=== PATIENT | male | born 1995 | race Caucasian/White ===

== ENCOUNTER 2021-04-17 13:04 | Outpatient (CLI) | payer OTHER | END 2021-04-17 20:10 | disposition home or self-care (01) | LOC: MCT 13:04 | PROVIDERS: ATTEND Internal Medicine | DX: J18.9 Pneumonia, unspecified organism (principal) | CPT/HCPCS: 71250 ==

== ENCOUNTER 2021-10-24 14:18 | Inpatient (IN) | payer OTHER ==
[~2021-10-24] VITALS: Ht 177.8 cm; Wt 106.1 kg
--- NOTE | 2021-10-24 14:10 | NUR ---
PT BROUGHT IN BY [facility]. PT HAS PORTEX [address] TRACH WAS CLEAN UPON ARRIVAL. PLACED ON SETTING PROVIDED BY THE SNF AT [facility] 500, RR12, +5 ,50%. WHEELS LOCKED, AMBU BAG PRESENT AND PLUGGED INTO RED OUTLET. PT SATURATION IN 94%. CLEAR WITH SLIGHT CRACKLES HEARD ON AUSCULTATION. SUCTIONED MODERATE AMOUNT OF THICK YELLOW SPUTUM. SPUTUM WAS COLLECTED AND SENT TO THE LAB. WAITING FOR RESULTS.
[2021-10-24 14:20] VITALS: BP 115/83
[2021-10-24] MEDS ORDERED: MORPHINE SULFATE 4 MG/ML SYR IVP ONE ×2 (14:40→15:45)
[2021-10-24] MEDS ORDERED: ONDANSETRON 4 MG/2 ML VIAL IVP ONE ×2 (14:40→15:45)
--- NOTE | 2021-10-24 14:56 | NUR ---
XRAY AT BEDSIDE
[2021-10-24 15:41] LABS: BASOPHILS # (AUTO) 0.1 K/uL (0.00-0.22); BASOPHILS % (AUTO) 0.6 % (0.0-2.0); EOSINOPHILS # (AUTO) 0.6 K/uL (0-0.4); EOSINOPHILS % (AUTO) 5.8 % (0.0-4.0); HEMATOCRIT 42.1 % (36-52); HEMOGLOBIN 13.7 g/dL (12.0-18.0); LYMPHOCYTES # (AUTO) 1.2 K/uL (2.0-11.5); MEAN CORPUSCULAR HEMOGLOBIN 28 pg (27-31); MEAN CORPUSCULAR HGB CONC 33 g/dL (33-37); MEAN CORPUSCULAR VOLUME 86.3 fL (80-94); MONOCYTES # (AUTO) 0.8 K/uL (0.8-1.0); MONOCYTES % (AUTO) 8.5 % (1.7-9.3); NEUTROPHILS # (AUTO) 6.9 K/uL (1.8-7.7); NEUTROPHILS % (AUTO) 72.1 % (42.2-75.2); PLATELET COUNT (AUTO) 239 K/uL (140-450); RED BLOOD CELL COUNT(AUTO) 4.88 MIL/uL (4.20-6.10); RED CELL DISTRIBUTION WIDTH 15.5 % (11.6-13.7); WHITE BLOOD COUNT (AUTO) 9.5 K/uL (4.8-10.8)
--- NOTE | 2021-10-24 15:57 | NUR ---
RT AT BEDSIDE
[2021-10-24 16:11] LABS: ALBUMIN 3.3 g/dL (3.4-5.0); ANION GAP 9.1 (8-16); CARBON DIOXIDE 31.6 mmol/L (21-32); CREATININE 0.4 mg/dL (0.6-1.3); POTASSIUM 3.7 mmol/L (3.5-5.1); TOTAL BILIRUBIN 0.5 mg/dL (0.0-1.0)
--- NOTE | 2021-10-24 17:08 | NUR ---
PT TAKEN TO CT VIA [facility]
--- NOTE | 2021-10-24 17:26 | NUR ---
PT BACK FROM CT
--- NOTE | 2021-10-24 17:30 | NUR ---
PT TRANSPORTED TO CT AND BACK TO ER WITH NO ADVERSE EVENTS. PT TOLERATED TRANSPORT WELL. VENT PLUGGED INTO RED OUTLET, VENTS ALARMS REMAIN ON AND AUDIBLE. AMBU REMAINS AT BEDSIDE. WILL CONTINUE TO MONITOR PT.
[2021-10-24] MEDS ORDERED: ONDANSETRON 4 MG/2 ML VIAL IVP PRN (17:45)
[2021-10-24] MEDS: DEXT 5% /NACL 0.9% 1,000 ML IV SCH (17:45)
[2021-10-24] MEDS ORDERED: MORPHINE SULFATE 4 MG/ML SYR IVP PRN (17:45)
[2021-10-24] MEDS ORDERED: PIPERACILLIN/TAZOBACTAM 3.375 GM VIAL IV ONE (18:22)
[2021-10-24] MEDS ORDERED: CRUSHER, PILL MC ONE (18:35)
[2021-10-24] MEDS: PIPERACILLIN/TAZOBACTAM 3.375 GM in DEXTROSE 5% 50 ML IV SCH (18:56)
--- NOTE | 2021-10-24 18:59 | NUR ---
The patient's care was reviewed and supervised by [facility] ED, RN.
--- NOTE | 2021-10-24 19:16 | NUR ---
REPORT GIVEN TO MARKEL JUSTICE. TRANSFER OF CARE.
--- NOTE | 2021-10-24 19:22 | NUR ---
pt is awake and alert. asked pt if he was in pain or needed, pt nodded no. added extra pillows on side for support. iv to left thumn patent, fluids running as ordered.. interm. suction for g-tube continued, no residual noted. lung sounds clear. abd appears distended, no bowel sounds asculated. all needs met at this time. bed locked in lowest position. side rails x2 for safety.
[2021-10-24 19:27] VITALS: BP 125/83
--- NOTE | 2021-10-24 19:27 | NUR ---
rt is at bedside.
--- NOTE | 2021-10-24 20:11 | NUR ---
SISTER GURDEEP CONTACT NUMBER [phone]
--- NOTE | 2021-10-24 20:47 | NUR ---
called kenya to [phone] x2s no answer. called charge x2s no answer. charge nurse prem made aware, stated i can move foward with transfering pt. rt called for transfer.
--- NOTE | 2021-10-24 21:00 | NUR ---
rt paged for pt transfer.
--- NOTE | 2021-10-24 21:30 | NUR ---
Patient will be admitted to care of . Admited to TELE . Will go to [id number]. Belongings list completed. Report to MARKEL GARCIA.
--- NOTE | 2021-10-24 21:45 | NUR ---
RECEIVED P[T FROM ER NURSE/PATIRNT ON TRACH TO VENT,IV INTACT,NO DISTRESS NOTED
[2021-10-25] VITALS: BP 113/73
[2021-10-25] MEDS ORDERED: PIPERACILLIN/TAZOBACTAM 3.375 GM VIAL IV ONE ×2 (00:11→06:01)
[2021-10-25] MEDS: PIPERACILLIN/TAZOBACTAM 3.375 GM in DEXTROSE 5% 50 ML IV SCH ×4 (00:17→18:00)
--- NOTE | 2021-10-25 03:00 | NUR ---
PATIENT ASLEEP, B REATHING EVEN AND UNLABORED,NO SOB NOTED
[2021-10-25 04:00] VITALS: BP 122/81
--- NOTE | 2021-10-25 06:00 | NUR ---
CLEANEDE AND REPOSITIONED THE PATIENT, SMALL AMOUNT OF SOFT DARK STOOL NOTED
[2021-10-25] MEDS: DEXT 5% /NACL 0.9% 1,000 ML IV SCH ×4 (06:13→22:28)
--- NOTE | 2021-10-25 07:15 | NUR ---
RECEIVED PATIENT LAYING IN BED ALERT AND ORIENTED X4 PATIENT LUNGS ARE CLEAR AND HE IS ON VENTILATOR. PATIENT BOWEL SOUNDS ARE HYPOACTIVE AND ABDOMEN IS DISTENDED. PATIENT SKIN IAS PALE AND HE IS A QUADRIPLEGIC. S1 AND S2 HEARD UPON AUSCULTATION. PATIENT SHOWS NO SIGNS OF PAIN AT THE MOMENT. PATIENT WITH SUPRAPUBIC CATHETER AND G-TUBE THAT IS HOOKED TO SUCTION. WILL CONTINUE TO MONITOR. BED AT LOWEST POSITION AND LOCKED.
[2021-10-25 08:00] VITALS: BP 148/87
[2021-10-25] MEDS ORDERED: ACETAMINOPHEN 325 MG TAB PO PRN (08:10)
[2021-10-25] MEDS ORDERED: DOCUSATE SODIUM 100 MG GELCAP PO PRN (08:10)
[2021-10-25] MEDS ORDERED: guaiFENesin DM 200/20 MG-10 ML 10 ML UDC PO PRN (08:10)
[2021-10-25] MEDS ORDERED: SODIUM PHOSPHATE 118 ML ENEM RC PRN (08:10)
[2021-10-25] MEDS ORDERED: ZOLPIDEM 5 MG TAB PO PRN (08:10)
[2021-10-25] MEDS ORDERED: SODIUM PHOSPHATE 118 ML ENEM RC ONE (08:10)
[2021-10-25] MEDS ORDERED: HYDROcodone/APAP 7.5/325 MG 1 TAB PO PRN (08:10)
[2021-10-25] MEDS ORDERED: ONDANSETRON 4 MG/2 ML VIAL IM/IVP PRN (08:10)
--- NOTE | 2021-10-25 08:12 | NUR ---
PATIENT HAS BEEN SCREENED AND CATEGORIZED LOW NUTRITION RISK. PATIENT WILL BE SEEN WITHIN 7 DAYS OF ADMISSION. 10/25/21-10/31/[address]
[2021-10-25] MEDS ORDERED: bisacodyL 10 MG SUPP RC PRN (08:15)
[2021-10-25] MEDS ORDERED: bisacodyL 10 MG SUPP RC ONE (08:15)
[2021-10-25] MEDS ORDERED: PANTOPRAZOLE 40 MG TABEC PO SCH (09:00)
[2021-10-25] MEDS ORDERED: SODIUM PHOSPHATE 118 ML ENEM RC SCH (09:30)
[2021-10-25] MEDS: PANTOPRAZOLE 40 MG INJ VIAL IVP SCH (09:47)
[2021-10-25 10:02] LABS: PROTHROMBIN TIME 10.3 secs (10.8-13.4)
[2021-10-25 10:25] LABS: AMYLASE 70 U/L (25-115); FREE T4 (FREE THYROXINE) 2.12 ng/dL (0.76-1.46); LIPASE 86 U/L (73-393); MAGNESIUM 2.2 mg/dL (1.8-2.4); PHOSPHORUS 4.7 mg/dL (2.5-4.9); THYROID STIMULATING HORMONE 8.46 uIU/mL (0.34-3.74)
--- NOTE | 2021-10-25 11:30 | NUR ---
PATIENT IV INFILTRATED MD NOTIFIED AND NEW ORDERS OBTAINED TO SWITCH IV SITE TO OTHER ARM. CAPILLARY REFILL LESS THAN THREE SECONDS.
[2021-10-25 12:00] VITALS: BP 118/75
--- NOTE | 2021-10-25 14:00 | NUR ---
PATIENT DISIMPACTED ABDOMEN IS SOFT. WILL CONTINUE TO MONITOR.
[2021-10-25 16:00] VITALS: BP 113/62
--- NOTE | 2021-10-25 16:00 | NUR ---
NOTIFIED THAT IV INSERTION WAS NOT COMPLETE REQUEST FOR PICC LINE PLACED, PATIENT ON IV ANTIBIOTICS.
--- NOTE | 2021-10-25 16:30 | NUR ---
PATIENT FAMILY AT BEDS SIDE.
--- NOTE | 2021-10-25 17:00 | NUR ---
IV ACCESS WAS OBTAINED MD NOTIFIED AND IV ANTIBIOTIC STARTED,TOO CLOSE TO NEXT SCHEDULE DOSE WILL NOT ADMINISTER 1800 DOSE.
--- NOTE | 2021-10-25 19:30 | NUR ---
RECEIVED PT FROM AM NURSE FOR CONTINUITY OF CARE.PT IS STABLE
[2021-10-25 20:00] VITALS: BP 127/85
--- NOTE | 2021-10-25 21:30 | NUR ---
ALL MEDICATIONS GIVEN.NO SOB NOTED, WILL CONTINUE TO MONITOR
[2021-10-25 22:12] LABS: TRIGLYCERIDES 74 mg/dL (30-150)
[2021-10-25 22:13] LABS: CHOL/HDL RATIO 4.3 (1-4.5); HDL CHOLESTEROL 35 mg/dL (40-60); LDL (CALC) 101 mg/dL (60-100)
[2021-10-26] VITALS: BP 123/78
[2021-10-26] MEDS: PIPERACILLIN/TAZOBACTAM 3.375 GM in DEXTROSE 5% 50 ML IV SCH ×4 (00:31→18:00)
--- NOTE | 2021-10-26 01:00 | NUR ---
PATIENT IS AWKE ,NO SOB NOTED, O2 SAT 94-96%.WILL CONTINUE TO MONITOR
--- NOTE | 2021-10-26 03:30 | NUR ---
NO SOB NOTED,WILL CONTINUE TO MONITOR
[2021-10-26 04:00] VITALS: BP 128/79
[2021-10-26 05:11] LABS: BASOPHILS % (AUTO) 0.2 % (0.0-2.0); EOSINOPHILS # (AUTO) 0.1 K/uL (0-0.4); EOSINOPHILS % (AUTO) 0.7 % (0.0-4.0); HEMATOCRIT 38.3 % (36-52); HEMOGLOBIN 12.8 g/dL (12.0-18.0); LYMPHOCYTES # (AUTO) 0.5 K/uL (2.0-11.5); LYMPHOCYTES % (AUTO) 4.9 % (20.5-51.1); MEAN CORPUSCULAR HEMOGLOBIN 29 pg (27-31); MEAN CORPUSCULAR HGB CONC 34 g/dL (33-37); MEAN CORPUSCULAR VOLUME 85.2 fL (80-94); MONOCYTES # (AUTO) 0.5 K/uL (0.8-1.0); MONOCYTES % (AUTO) 4.7 % (1.7-9.3); NEUTROPHILS # (AUTO) 9.6 K/uL (1.8-7.7); NEUTROPHILS % (AUTO) 89.5 % (42.2-75.2); PLATELET COUNT (AUTO) 230 K/uL (140-450); RED CELL DISTRIBUTION WIDTH 15.4 % (11.6-13.7); WHITE BLOOD COUNT (AUTO) 10.8 K/uL (4.8-10.8)
[2021-10-26 05:23] LABS: ANION GAP 11.5 (8-16); CARBON DIOXIDE 29.6 mmol/L (21-32); CREATININE 0.4 mg/dL (0.6-1.3); POTASSIUM 3.1 mmol/L (3.5-5.1)
[2021-10-26] MEDS: DEXT 5% /NACL 0.9% 1,000 ML IV SCH ×3 (05:35→19:55)
--- NOTE | 2021-10-26 06:00 | NUR ---
PATIENT ASLEEP, RESPIRATION EVEN AND UNLABORED,NO DISTRESS NOTED
[2021-10-26] MEDS: POTASSIUM CHLORIDE 10 MEQ TABER PO PRN (06:52)
--- NOTE | 2021-10-26 07:15 | NUR ---
RECEIVED PT ON ACVC 500, 12, +5, 60%. WHEELS ARE LOCKED, AMBU BAG AT BEDSIDE. PT WAS AWAKE AND IN NO DISTRESS.
--- NOTE | 2021-10-26 07:48 | NUR ---
SPOKE TO DR WORLEY REGARDING PATIENT STATUS. WANTS FOLLOW UP ABDOMINAL X RAY AND BOWEL PROTOCOL. WILL CALL FOR RESULTS.
--- NOTE | 2021-10-26 07:58 | NUR ---
RECEIVED PATIENT, AOXO, NONVERBAL AT BASELINE, SINUS CARMENZA/OCCASIONALLY PACED, TRACH TO VENT WITH UNLABORED BREATHING. G TUBE TO LIS WITH SMALL AMOUNT OF BILIOUS OUTPUT. PATIENT DOES NOT APPEAR TO BE IN DISTRESS/DISCOMFORT. SUPRAPUBIC CATHETER DRAINING CLEAR SEDIMENTED URINE. BOWEL DISTENDED AT THIS TIME. PATIENT IS QUADRIPLEGIC. IV FLUIDS INFUSING TO RIGHT WRIST IV. REPOSITIONED PATIENT. WILL CONTINUE TO MONITOR.
[2021-10-26 08:00] VITALS: BP 139/81
[2021-10-26] MEDS ORDERED: MAGNESIUM CITRATE 300 ML BTL GT SCH (08:30)
[2021-10-26] MEDS: POLYETHYLENE GLYCOL 17 GM/PKT GT SCH ×2 (08:48→21:37)
[2021-10-26] MEDS: PANTOPRAZOLE 40 MG INJ VIAL IVP SCH (08:48)
--- NOTE | 2021-10-26 09:30 | NUR ---
PROVIDED UPDATE TO SISTER GURDEEP.
[2021-10-26 12:00] VITALS: BP 101/67
--- NOTE | 2021-10-26 12:15 | NUR ---
WOUND CARE NOTE: SKIN ASSESSMENT DONE WITH THIS 26 Y/O PT. PT. WITH LOW ROSEANNE SCALE AT HIGH RISK, CONTINUE TO FOLLOW PRESSURE INJURY PREVENTION INTERVENTIONS. PT. ADMITTED WITH MULTIPLE EROSIONS TO TRUNK OF BODY. GT CONNECTED WITH SUCTION OF BROWNISH SECRETION OBSERVED IN THE SUCTION CONTAINER, TOTAL CARE WITH BED BATH AND POSITION WITH OFFLOADING. POC DISCUSSED WITH PRIMARY RN. -POSTERIOR NECK, MOISTURE ASSOCIATED EROSIONS FROM TRACK TIE, 0.5X3CM SUPERFICIAL DEPTH -GT JESUS MANUEL STOMA SKIN RED WITH RASHES, SKIN INTACT -OLD HEALED SACRAL/BUTTOCKS WOUND THIN SCAR TISSUE WITH MOISTURE ASSOCIATED DERMATITIS RED, SUPERFICIAL EROSIONS TO OLD HEALED JESUS MANUEL-WOUND SKIN EXTENDED TO RIGHT AND LEFT ISCHIALS. -#20 FR. SUPRAPUBIC CATH, JESUS MANUEL-OSTOMY SKIN EROSION WITH FULL THICKNESS SKIN LOSS, 2M0S1KG, WOUND BED 100% RED GRANULATION TISSUE WITH SMALL AMOUNT SEROUS DRAINAGE, NO ODOR, JESUS MANUEL-WOUND SKIN MOIST AND INTACT. RECOMMENDATIONS: -CLEANSE POSTERIOR NECK, GT JESUS MANUEL-STOMA SKIN, SACRALCOCCYX/BUTTOCKS/ISCHIALS WITH MILD SOAP AND WATER, PAT DRY, APPLY ZGUARD AND COVER WITH ISLAND DRESSING QD AND PRN IF SOILING. -APPLY FOAM DRESSING TO SACRALCOCCYX Q3 DAYS AND PRN IF SOILING -CLEANSE SUPRA PUBIC CATH JESUS MANUEL-SKIN WOUND WITH NS, PAT DRY PACK WITH OIL EMULSION DRESSING AND COVER WITH DRY DRESSING SECURED WITH TAPE. QD AND PRN IS SOILING. -POSITIONING: TURN AND REPOSITION PATIENT Q 2H OR SOONER USE PILLOWS TO KEEP BONY PROMINENCES FROM DIRECT CONTACT WITH SURFACES USE REPOSITIONING WEDGES TO PROVIDE 30-DEGREE ANGLE FOR SIDE LYING POSITIONS OFFLOADING OR FOAM DRESSING TO ALL TUBING TO PREVENT MEDICAL DEVICES RELATED PRESSURE INJURY -RE-EVALUATING AND MANAGING INCONTINENCE MONITOR SKIN CONDITION DURING POSITION CHANGE DO NOT MASSAGE REDNESS, BONY PROMINENCES FREQUENT JESUS MANUEL-CARE AND PROVIDE BARRIER CREAMS PRN IF SOILING MOISTURE CONTROL BY OFFER BED CAPPS/URINAL /ABSORBENT PAD TO WICK AND HOLD MOISTURE KEEP SKIN DRY AND PROTECT FROM FRICTION -MANAGE FRICTION/SHEAR/MOBILITY KEEP HOB AT THE LOWEST LEVEL OF ELEVATION NO MORE THAN 30 DEGREES UNLESS OTHERWISE CONTRAINDICATED USE LIFT SHEET OR TRANSFER DEVICE TO MOVE PATIENT AND PREVENT LATERAL SHEER. PROTECT HEELS, ELBOWS BONY PROMINENCES WITH SKIN BERRIES OR FOAM DRESSING IF EXPOSED TO FRICTION OFFLOAD BILATERAL HEELS BY PLACING PILLOWS UNDER CALVES AT ALL TIMES, UNLESS OTHERWISE CONTRAINDICATED -PRESSURE REDISTRIBUTION SURFACE THERAPY MANDI ISOFLEX MATTRESS -NUTRITION: PLEASE FOLLOW RD RECOMMENDATIONS AND OFFER NUTRITION SUPPLEMENTS IF ORDERED. PLEASE CONTACT WOUND CARE NURSE FOR ANY QUESTION AND CHANGE OF WOUND CONDITION.
[2021-10-26] MEDS: FOAM DRESSING TP SCH (13:00)
[2021-10-26] MEDS: GAUZE TP SCH (13:00)
[2021-10-26] MEDS: Z-GUARD PASTE TP SCH (13:00)
--- NOTE | 2021-10-26 13:01 | NUR ---
SPOKE TO DR WORLEY WHO WANTS PATIENT TO RESUME TUBE FEEDS AND PUT PATIENT ON BOWEL PREP.
[2021-10-26 14:10] LABS: CANNABINOID, URINE NEGATIVE ng/mL (NEG <=50); OPIATE, URINE POSITIVE ng/mL (NEG <=2000); PHENCYCLIDINE SCREEN,URINE NEGATIVE ng/mL (NEG <=25)
[2021-10-26 14:11] LABS: BARBITURATE, URINE NEGATIVE ng/ml (NEG <=200); BENZODIAZEPINE, URINE NEGATIVE ng/mL (NEG <=200); COCAINE, URINE NEGATIVE ng/mL (NEG <=300)
[2021-10-26 14:26] LABS: APPEARANCE,URINE CLEAR (CLEAR); COLOR,URINE YELLOW (YELLOW)
[2021-10-26 14:27] LABS: BILIRUBIN,URINE NEGATIVE (NEGATIVE); BLOOD, URINE NEGATIVE (NEGATIVE); LEUKOCYTE ESTERASE ,URINE NEGATIVE (NEGATIVE); NITRITE, URINE NEGATIVE (NEGATIVE); PH,URINE 5.0-9.0 (5.0-9.0); UGLUCOSE NEGATIVE (NEGATIVE)
--- NOTE | 2021-10-26 15:59 | NUR ---
DC PLANNING: THE PATIENT WAS BIBA FROM [facility] WITH C/O POSSIBLE SBO BASED ON RESULTS OF A KUB DONE. THE PATIENT HAD DX OF SBO IN SEPTEMBER AND WAS TREATED AT [facility]. THE PATIENT IS TRACH/VENT/PEG AND SUPRAPUBIC CATHETER, AND IS DEVELOPMENTALLY DELAYED. H/O PACEMAKER, ANEMIA, CHRONIC RESPIRATORY FAILURE. CXR SHOWS PERHILAR INFILTRATES WITH LEFT BASILAR CONSOLIDATION, KUB SHOWS A HYPERDENSE RECTAL STOOL BALL. THE PATIENT WAS SEEN IN CONSULTATION BY THE SURGEON WHO MANUALLY DISIMPACTED THE PATIENT OF A LARGE AMOUNT OF STOOL, DIVERTING COLOSTOMY RECOMMENDED BY HIM RELATED TO POTENTIAL FOR DECUBITUS ULCERS. BENI SPOKE WITH JAYDA AT [facility], THE PATIENT TRAN[facility] THEY WERE NOT ABLE TO MANAGE HIM. HE IS PRIMARILY BED AND WC BOUND AND IS TOTAL CARE. HE IS NON-VERBAL AND HAS FAMILY THAT IS INVOLVED WITH HIS CARE AND VISITS HIM EVERY WEEK INCLUDING HIS FATHER, MOTHER AND SISTER. BENI SPOKE WITH HIS FATHER SARAH TO INTRODUCE SELF, HE STATES THAT THE FAMILY WANTS THE PATIENT TO RETURN TO [facility] WHEN HE IS DC'D FROM THE HOSPITAL. PATIENT IS ACCEPTED BACK TO [facility], ROOM 3C WITH DR CARR TO FOLLOW. BENI WILL FOLLOW. Addendum: 10/28/21 at 1610 by Jenniffer Marinelli CM DC PLANNING: NA+ TODAY 157, K+ 2.7, GIVEN K+ RIDER AND LASIX 60 MG IV X 1. TESTICULAR US DONE SECONDARY TO SCROTAL SWELLING, NO ACUTE FINDINGS, LIMITED RENAL US NEGATIVE FOR FINDINGS. ATTENDING MD TO SPEAK WITH DR WORLEY REGARDING DIVERTING COLOSTOMY AND COLONOSCOPY ON THIS ADMISSION. CM WILL FOLLOW. Addendum: 10/29/21 at 1043 by Jenniffer Marinelli CM DC PLANNING: PATIENTS FIO2 INCREASED TO 50% PER RT NOTES BECAUSE OF DESATURATION. CM SPOKE WITH MICHAEL AT [facility], PATIENT'S FIO2 NEEDS TO BE AT 35% OR LESS FOR HIM TO RETURN TO THE FACILITY. THE PATIENTS FATHER IS COMING TO THE HOSPITAL TO DISCUSS PLACEMENT OF A DIVERTING COLOSTOMY WITH THE MD'S MANAGING THE PATIENT. CM WILL FOLLOW. Addendum: 11/04/21 at 1433 by Natalie Browne RN DC PLANNING: PATIENT HAS A DC ORDER TO RETURN TO [facility] FAXED ALL PAPERWORK. AWAITING FOR ROOM NUMBER. CM TO FOLLOW Addendum: 11/04/21 at 1709 by Natalie Browne RN DC PLANNING: PATIENT CAN GO TO [facility] ROOM 3B UNDER THE CARE OF DR CARR. # TO GIVE report [phone]. ARRANGED TRANSPORT WITH [facility] TRANSPORT SIGNALING DESIGN ENGINEER TIME 1800 NOTIFIED ABEBA JEAN BAPTISTE
[2021-10-26 16:00] VITALS: BP 112/76
--- NOTE | 2021-10-26 18:40 | NUR ---
PATIENT HAD A LARGE LIQUID BM. CLEANED AND REPOSITIONED PATIENT ON SIDE, PATIENT DESATURATED TO 80S, CALLED RT AND PATIENT WAS ABLE TO INCREASE SATURATIONS. CURRENTLY AT 91%, TRACH TO VENT. TUBE FEEDINGS STARTED AT 40 CC/HOUR, GOAL RATE OF 75 CC/HOUR. IV FLUIDS INFUSING AT THIS TIME. WILL ENDORSE TO NIGHT RN.
--- NOTE | 2021-10-26 19:30 | NUR ---
RECEIVED REPORT FROM AM NURSE. PATIENT IS TRACH TO VENT AC/VC SETTING: FIO2-80, VT-500, R-12, PEEP-5. NON VERBAL, EYES OPEN. ALL SAFETY PRECAUTIONS ARE IN PLACE. NO S/S OF RESPIRATORY FAILURE. IVF NS INFUSING AT 140 ML/HR ON THE RIGHT THUMB. OSMOLYTE 1.5 RUNNING AT 40 ML/HR TOLERATING WELL. SUPRAPUBIC CATHETER DRAINING CLEAR YELLOW URINE. WILL CONTINUE TO MONITOR PT.
[2021-10-26 20:00] VITALS: BP 109/64
[2021-10-26] MEDS: SUPREP BOWEL PREP KIT 354 ML SOLN.RECON PO SCH (21:37)
--- NOTE | 2021-10-26 21:37 | NUR ---
SCHEDULED MEDICATIONS ADMINISTERED ORDERED.
[2021-10-27] VITALS: BP 116/85
[2021-10-27] MEDS: PIPERACILLIN/TAZOBACTAM 3.375 GM in DEXTROSE 5% 50 ML IV SCH ×5 (00:50→23:09)
[2021-10-27] MEDS: Z-GUARD PASTE TP SCH ×2 (01:00→13:30)
[2021-10-27] MEDS: DEXT 5% /NACL 0.9% 1,000 ML IV SCH ×3 (03:04→17:51)
--- NOTE | 2021-10-27 03:30 | NUR ---
IV INFILTRATED. STARTED A NEW PERIPHERAL IV ON THE LEFT HAND WITH GOOD BACK FLOW OF BLOOD.
[2021-10-27 04:00] VITALS: BP 123/84
--- NOTE | 2021-10-27 05:50 | NUR ---
DUE MEDICATION GIVEN ORDERED. PT. IS AFEBRILE, NO SOB NOTED
[2021-10-27 06:25] LABS: EOSINOPHILS % (AUTO) 0.2 % (0.0-4.0); HEMATOCRIT 37.8 % (36-52); HEMOGLOBIN 12.4 g/dL (12.0-18.0); LYMPHOCYTES # (AUTO) 0.5 K/uL (2.0-11.5); LYMPHOCYTES % (AUTO) 4.7 % (20.5-51.1); MEAN CORPUSCULAR HEMOGLOBIN 28 pg (27-31); MEAN CORPUSCULAR HGB CONC 33 g/dL (33-37); MEAN CORPUSCULAR VOLUME 85.9 fL (80-94); MONOCYTES # (AUTO) 0.4 K/uL (0.8-1.0); NEUTROPHILS % (AUTO) 91.1 % (42.2-75.2); PLATELET COUNT (AUTO) 196 K/uL (140-450); RED BLOOD CELL COUNT(AUTO) 4.39 MIL/uL (4.20-6.10); RED CELL DISTRIBUTION WIDTH 15.1 % (11.6-13.7)
[2021-10-27 06:26] LABS: ANION GAP 6.9 (8-16); CARBON DIOXIDE 32.8 mmol/L (21-32); CREATININE 0.3 mg/dL (0.6-1.3)
[2021-10-27 06:29] LABS: POTASSIUM 2.7 mmol/L (3.5-5.1)
--- NOTE | 2021-10-27 06:32 | NUR ---
ANNA FROM LAB CALLED REPORTING POTASSIUM LEVEL OF 2.7. DR. CASTILLO MADE AWARE WITH ORDER NOTED, CARRIED OUT.
[2021-10-27] MEDS: POTASSIUM CHLORIDE 10 MEQ TABER PO PRN (06:41)
--- NOTE | 2021-10-27 07:05 | NUR ---
RECEIVED REPORT FROM COORDINATOR OF LIBRARY SERVICES NURSE FOR CONTINUITY OF CARE. PT IN BED, NON VERBAL. ON TRACH TO VENT WITH SETTINGS ACVC FIO2 80, PEEP5, VT 500, RATE 12. SUPRAPUBIC CATHETER INTACT AND PATENT DRAINING DARK YELLOW URINE ON GRAVITY. GT INTACT AND PATENT CURRENTLY INFUSING OSMOLITE AT 50CC/HR WITH GOAL OF 75CC/HR. WATER FLUSH 250CC Q4H. HOB KEPT ELEVATED. LEFT THUMB 24G D5NS AT 140CC/HR. ALL SAFETY MEASURES IN PLACE.
--- NOTE | 2021-10-27 07:15 | NUR ---
ENDORSED PATIENT TO AM NURSE FOR CONTINUITY OF CARE. PT IS STABLE.
--- NOTE | 2021-10-27 07:59 | NUR ---
PT NOTED WITH BILATERAL UPPER AND LOWER EXTREMITY NON PITTING EDEMA. FLACC O. PT AWAKE, NON VERBAL. NO SOB NOTED AT THIS TIME. PER DIRECTOR EAST COAST SALES NURSE PT IS A HARDSTICK AND DR CASTILLO ORDERED PICC LINE/MIDLINE INSERTION, ACKNOWLEDGED ORDER. WILL CONTINUE TO MONITOR.
[2021-10-27 08:00] VITALS: BP 109/61
[2021-10-27] MEDS: PANTOPRAZOLE 40 MG INJ VIAL IVP SCH (08:16)
[2021-10-27] MEDS: POLYETHYLENE GLYCOL 17 GM/PKT GT SCH ×2 (08:25→20:23)
[2021-10-27] MEDS: SUPREP BOWEL PREP KIT 354 ML SOLN.RECON PO SCH (08:26)
--- NOTE | 2021-10-27 08:29 | NUR ---
SCHEDULED AM MEDICATIONS GIVEN ORDERED. PT'S GASTRIC RESIDUAL AT 30CC, INCREASED FEEDING TO 60CC/HR TO REACH GOAL OF 75CC/HR. WILL CONTINUE TO MONITOR.
[2021-10-27 08:46] LABS: T4 (THYROXINE) 15.8 ug/dL (4.5 - 12.0)
--- NOTE | 2021-10-27 09:24 | NUR ---
CALLED SARAH BYRD (FATHER) AND OBTAINED PICC LINE INSERTION CONSENT VIA TELEPHONE, VERIFIED BY ANOTHER NURSE CHI STARK
--- NOTE | 2021-10-27 09:30 | NUR ---
PICC LINE SERVICES MADE AWARE OF ORDER
--- NOTE | 2021-10-27 09:55 | NUR ---
PT'S POTASSIUM LEVEL WAS 2.7 AND SEARCH AND RESCUE OFFICER NURSE REPLENISHED WITH 40MEQ KDUR. OBTAINED ORDER FROM DR CASTILLO TO RE-CHECK POTASSIUM LEVEL.
--- NOTE | 2021-10-27 11:39 | NUR ---
INCREASED PT'S GT FEEDING TO 70CC/HR, GOAL IS 75CC/HR. NO GASTRIC RESIDUAL NOTED AT THIS TIME. WILL CONTINUE TO MONITOR
[2021-10-27 12:00] VITALS: BP 136/85
[2021-10-27] MEDS: GAUZE TP SCH (13:30)
[2021-10-27] MEDS: KCL 20 MEQ/WATER INJ PREMIX 100 ML IV SCH ×2 (13:58→16:01)
--- NOTE | 2021-10-27 14:04 | NUR ---
DOMENICA WOODRUFF AT BEDSIDE STATING PT WAS RECEIVING ANTI ANXIETY MEDICATION AT SNF. MED LIST FROM SNF WAS AT CHART, NO ANTI ANXIETY MEDICATION NOTED. PT WAS RECEIVING VENLAFAXINE FOR DEPRESSION, MOM MADE AWARE. DR CASTILLO MADE AWARE WITH ORDER MADE AND CARRIED OUT.
[2021-10-27 16:00] VITALS: BP 104/65
--- NOTE | 2021-10-27 16:34 | NUR ---
NO GASTRIC RESIDUAL NOTED, INCREASED TO 75CC/HR. WILL CONTINUE TO MONITOR
[2021-10-27] MEDS ORDERED: DEXT15DR6 OP (17:05)
[2021-10-27] MEDS ORDERED: ACET-1182 GT (17:05)
[2021-10-27] MEDS ORDERED: METH-1550 GT (17:05)
[2021-10-27] MEDS ORDERED: DOCU-299 GT (17:05)
[2021-10-27] MEDS ORDERED: MIRABULK GT (17:05)
[2021-10-27] MEDS ORDERED: MAGN400S60 GT (17:05)
[2021-10-27] MEDS ORDERED: AMIO100T3 GT (17:05)
[2021-10-27] MEDS ORDERED: HEPA500056 SQ (17:05)
[2021-10-27] MEDS ORDERED: SCOP0.333 TP (17:05)
[2021-10-27] MEDS ORDERED: LEVO137C2 GT (17:05)
[2021-10-27] MEDS ORDERED: BISA-213 RC (17:05)
[2021-10-27] MEDS ORDERED: ROB1 GT (17:05)
[2021-10-27] MEDS ORDERED: NA P133E RC (17:05)
[2021-10-27] MEDS ORDERED: [UNRECOGNIZED DRUG - CODE] GT (17:05)
[2021-10-27] MEDS ORDERED: LYR75 GT (17:05)
--- NOTE | 2021-10-27 17:39 | NUR ---
10/27/21 RD INITIAL ASSESSMENT COMPLETED 1. PLEASE REFER TO NUTRITION ASSESSMENT UNDER CARE ACTIVITY FOR ESTIMATED NUTRITIONAL NEEDS. 2. CHANGE GTF TO OSMOLITE 1.5 TO GOAL 65 ML/HR, FWF [address] TO FOLLOW-UP 2-3 DAYS, HIGH RISK MYAH BARBOZA, RD
--- NOTE | 2021-10-27 17:46 | NUR ---
NOTED BILATERAL EYES WITH REDNESS, PT WAS RECEIVING ARTIFICIAL TEARS 1 DROP BOTH EYES Q6HS AT [facility] HE WAS AT. SPOKE WITH MYAH REINFORCING IRON WORKER HELPER WITH RECOMMENDATION TO CHANGE FEEDING TO 65CC/HR INSTEAD OF 75CC/HR WITH WATER FLUSH OF 150CC Q6HRS. ALSO URINE OUTPUT FROM SUPRAPUBIC CATHETER NOTED TO BE ONLY 200CC. DR CASTILLO MADE AWARE, AWAITING RESPONSE.
--- NOTE | 2021-10-27 18:10 | NUR ---
RECEIVED ORDERS FROM DR CASTILLO REGARDING EYE DROPS, CONSULT WITH DR PHAM (NEPHRO) AND TUBE FEEDING RATE.
--- NOTE | 2021-10-27 18:22 | NUR ---
PAGED DR TIN DUNN (CAR INSTALLATIONS SUPERVISOR FOR DR PHAM) REGARDING CONSULT
--- NOTE | 2021-10-27 18:37 | NUR ---
SPOKE WITH TAB PICC LINE NURSE STATED WILL BE HERE IN 15MINUTES
--- NOTE | 2021-10-27 19:05 | NUR ---
PICC LINE NURSE HERE TO INSERT MIDLINE.
--- NOTE | 2021-10-27 19:17 | NUR ---
ENDORSED PT TO HIGH SPEED OPERATOR NURSE, IN STABLE CONDITION
--- NOTE | 2021-10-27 19:18 | NUR ---
RECEIVED BEDSIDE REPORT FROM DAY RN. PT APPEARS AWAKE TRACKS NURSE. TRACH TO VENT. MIDLINE BEING PLACED AT THIS TIME. NO DISTRESS NOTED. WILL CONTINUE TO MONITOR.
--- NOTE | 2021-10-27 19:20 | NUR ---
PT CURRENTLY ON AC 500, RR 12, +5, 45%. VENT PLUGGED INTO RED OUTLET, WHEELS ARE LOCKED AND AMBU BAG AT BEDSIDE. ALARMS ARE SET AND AUDIBLE. DR AT BEDSIDE INSERTING A PICC LINE.
--- NOTE | 2021-10-27 19:34 | NUR ---
MIDLINE PLACED ON MÓNICA READY TO USE. PT AWAKE FLACC 0. RESPIRATIONS ARE EQUAL AND UNLABORED ON TRACH TO VENT. VENT SETTINGS AC/VC 40% 500,12 +5 SAT WELL 94%. GTUBE FEEDING OSMOLITE 1.5 AT 65ML/H FWF 150ML/Q6H. DX SBO SECOND TO FECAL IMPACTION. PT HAS MANUAL DISIMPACTION ON 10/25 AND ON LAXATIVES. SUPRA PUBIC CATH DRAINING CLOUDY YELLOW URINE W/ SEDIMENTS. IV ON L THUMB IVF INFUSING PER ORDERS. SAFETY MEASURES ARE IN PLACE. POC DISCUSSED PT UNABLE TO COMPREHEND.
[2021-10-27 20:00] VITALS: BP 120/73
--- NOTE | 2021-10-27 20:23 | NUR ---
VSS. ORAL CARE PROVIDED. VANDANA MEDICATION GIVEN PER ORDER. PATIENT REPOSITION FOR COMFORT. ALL NEEDS MET.
--- NOTE | 2021-10-27 22:35 | NUR ---
PATIENT LARGE LIQUID BM WAS CLEAN WITH ASSISTANCE OF 3 NURSES. PT TOLERATED WELL. DEEP SUCTION MOD BANKS SECRETIONS. PATIENT WAS REPOSITION FOR COMFORT. ALL NEEDS MET. WILL CONTINUE TO MONITOR.
[2021-10-27] MEDS: POLYVINYL ALCOHOL 1.4% OP 15 ML SOL OP SCH (23:10)
[2021-10-28] VITALS: BP 116/71
--- NOTE | 2021-10-28 00:01 | NUR ---
VITAL SIGNS ARE WITHIN NORMAL LIMITS. ALL SAFETY MEASURES ARE IN PLACE. WILL CONTINUE TO MONITOR.
[2021-10-28] MEDS: Z-GUARD PASTE TP SCH ×2 (00:32→13:34)
[2021-10-28] MEDS: DEXT 5% /NACL 0.9% 1,000 ML IV SCH ×2 (02:03→07:40)
--- NOTE | 2021-10-28 02:06 | NUR ---
PATIENT RESTING IN BED QUIETLY. NO S/SX OF DISTRESS. ALL SAFETY MEASURES ARE IN PLACE. WILL CONTINUE TO MONITOR.
[2021-10-28 04:00] VITALS: BP 115/68
--- NOTE | 2021-10-28 04:10 | NUR ---
ORAL CARE PROVIDED PT TOLERATED WELL. VITAL SIGNS ARE WITHIN NORMAL LIMITS.
[2021-10-28] MEDS: POLYVINYL ALCOHOL 1.4% OP 15 ML SOL OP SCH ×3 (05:05→18:15)
[2021-10-28] MEDS: PIPERACILLIN/TAZOBACTAM 3.375 GM in DEXTROSE 5% 50 ML IV SCH ×3 (05:05→18:10)
[2021-10-28 05:30] LABS: BASOPHILS % (AUTO) 0.2 % (0.0-2.0); EOSINOPHILS % (AUTO) 0.8 % (0.0-4.0); LYMPHOCYTES # (AUTO) 0.3 K/uL (2.0-11.5); LYMPHOCYTES % (AUTO) 7.2 % (20.5-51.1); MEAN CORPUSCULAR HEMOGLOBIN 28 pg (27-31); MEAN CORPUSCULAR HGB CONC 33 g/dL (33-37); MEAN CORPUSCULAR VOLUME 87.1 fL (80-94); MONOCYTES # (AUTO) 0.4 K/uL (0.8-1.0); MONOCYTES % (AUTO) 9.9 % (1.7-9.3); NEUTROPHILS # (AUTO) 3.4 K/uL (1.8-7.7); NEUTROPHILS % (AUTO) 81.9 % (42.2-75.2); PLATELET COUNT (AUTO) 168 K/uL (140-450); RED BLOOD CELL COUNT(AUTO) 4.25 MIL/uL (4.20-6.10); RED CELL DISTRIBUTION WIDTH 15.5 % (11.6-13.7); WHITE BLOOD COUNT (AUTO) 4.2 K/uL (4.8-10.8)
[2021-10-28 05:48] LABS: ANION GAP 7.7 (8-16); CREATININE 0.4 mg/dL (0.6-1.3)
[2021-10-28 05:52] LABS: POTASSIUM 2.7 mmol/L (3.5-5.1)
--- NOTE | 2021-10-28 06:48 | NUR ---
PAGED DR CASTILLO FOR K 2.7 NA 157 WAITING CALL BACK
[2021-10-28] MEDS: KCL 20 MEQ/WATER INJ PREMIX 300 ML IV SCH ×2 (06:58→09:35)
--- NOTE | 2021-10-28 07:00 | NUR ---
K RIDER NOW INFUSING PER ORDERS.
--- NOTE | 2021-10-28 07:05 | NUR ---
BEDSIDE REPORT GIVEN TO DAY RN. PT ENDORSED IN STABLE CONDITION.
--- NOTE | 2021-10-28 07:10 | NUR ---
RECEIVED REPORT FROM NON DESTRUCTIVE TESTER NURSE FOR CONTINUITY OF CARE. PT AWAKE IN BED, NON VERBAL. ON TRACH TO VENT WITH SETTINGS FIO2 45, VT 500, PEEP 5 RATE 12. BREATHING SYMMETRICAL. FLACC O. MÓNICA MIDLINE DOUBLE LUMEN, RUNNING D5NS AT 140CC/HR AND K RIDER AT 50CC/HR FOR POTASSIUM LEVEL 2.7 SUPRAPUBIC CATHETER INTACT AND PATENT DRAINING YELLOW URINE, SOME SEDIMENTS NOTED. GT INTACT AND PATENT RUNNING OSMOLITE 1.5 AT 65CC/HR WITH WATER FLUSH OF 150CC Q6H. ALL SAFETY MEASURES IN PLACE.
[2021-10-28 08:00] VITALS: BP 136/90
[2021-10-28] MEDS ORDERED: KCL 20 MEQ/WATER INJ PREMIX 200 ML IV SCH (09:00)
[2021-10-28 09:07] LABS: CHLORIDE,URINE RANDOM 41 mmol/L (110-250); URINE SODIUM, RANDOM 37 mmol/l (40-220)
[2021-10-28] MEDS: PANTOPRAZOLE 40 MG INJ VIAL IVP SCH (09:10)
[2021-10-28] MEDS: VENLAFAXINE 37.5 MG TAB GT SCH (09:10)
[2021-10-28] MEDS: POLYETHYLENE GLYCOL 17 GM/PKT GT SCH ×2 (09:10→20:27)
[2021-10-28] MEDS ORDERED: CALCIUM CARB 600 MG TAB GT SCH (09:15)
[2021-10-28] MEDS: DEXTROSE 5% 1,000 ML IV SCH ×2 (09:30→18:14)
--- NOTE | 2021-10-28 09:30 | NUR ---
SCHEDULED AM MEDICATIONS GIVEN ORDERED. ALSO SPOKE WITH DR DUNN (MAIL READER) WITH NEW ORDERS MADE, AWARE OF SODIUM LEVEL 157
[2021-10-28 12:00] VITALS: BP 144/81
--- NOTE | 2021-10-28 12:18 | NUR ---
THIRD BAG OF POTASSIUM ADMINISTERED FOR TOTAL DOSE OF 60MEQ. EACH POTASSIUM BAG CONTAINS 20MEQ.
[2021-10-28] MEDS: GAUZE TP SCH (13:34)
[2021-10-28] MEDS ORDERED: FUROSEMIDE 100 MG/10 ML VIAL IVP SCH (14:45)
--- NOTE | 2021-10-28 14:45 | NUR ---
PT SEEN BY DR GONZALEZ (BUSINESS OBJECTS ARCHITECT) WITH NEW ORDERS MADE.
[2021-10-28 15:34] LABS: ALBUMIN 2.4 g/dL (3.4-5.0); ANION GAP 5.9 (8-16); CREATININE 0.3 mg/dL (0.6-1.3); POTASSIUM 3.9 mmol/L (3.5-5.1); TOTAL BILIRUBIN 0.2 mg/dL (0.0-1.0)
[2021-10-28 16:00] VITALS: BP 112/72
--- NOTE | 2021-10-28 16:00 | NUR ---
PT WAS GIVEN ONE TIME DOSE OF LASIX 60MG IVP EARLIER ORDERED BY DOUBLE REAMER OPERATOR. SUPRAPUBIC CATHETER DRAINING A LOT OF YELLOW URINE AT THIS TIME.
--- NOTE | 2021-10-28 17:30 | NUR ---
PT AWAKE IN BED, NON VERBAL. ON TRACH TO VENT SATING AT 93-96% FLACC O. ASSISTED THREE KNIFE TRIMMER IN CHANGING PT, PT HAD LARGE WATERY BM, PT HAD RECEIVED MIRALAX IN THE MORNING ORDERED. SUPRAPUBIC CATHETER INTACT AND PATENT DRAINING PALE YELLOW URINE, NO SEDIMENTS NOTED.
--- NOTE | 2021-10-28 19:33 | NUR ---
ENDORSED PT TO CERTIFIED ENDOSCOPY TECHNICIAN NURSE, IN STABLE CONDITION
--- NOTE | 2021-10-28 19:35 | NUR ---
RECEIVED BEDSIDE REPORT FROM DAY SHIFT RN FOR CONTINUITY OF CARE. PT IS AWAKE IN BED. PT IS NOT IN ANY DISTRESS. BREATHING EVEN AND UNLABORED. PT IS TRACH TO VENT. FIO2 40%, VT 500, PEEP 5, RATE 12. PT HAS SUPRAPUBIC CATH DRAINING CLEAR YELLOW URINE. PT HAS MÓNICA MIDLINE WITH D5 125 ML/HR. PT HAS TUBE FEEDING INFUSING 65 ML/HR. HEAD OF THE BED RAISED. BED AT THE LOWEST POSITION. ALL SAFETY MEASURES TAKEN. WILL CONTINUE TO MONITOR THE PT.
[2021-10-28 20:00] VITALS: BP 120/70
--- NOTE | 2021-10-28 20:30 | NUR ---
ALL DUE MEDS GIVEN. NO ADVERSE REACTION NOTED. WILL CONTINUE TO MONITOR THE PT.
[2021-10-28 22:03] LABS: ANION GAP 4.9 (8-16); CARBON DIOXIDE 38.5 mmol/L (21-32); CREATININE 0.4 mg/dL (0.6-1.3); POTASSIUM 3.4 mmol/L (3.5-5.1)
--- NOTE | 2021-10-28 22:13 | NUR ---
DURING VENT CHECK NOTICED PT SATING 89% ON 40% FIO2. TITRATED TO KEEP SATS >92%. FIO2 CURRENTLY AT 50%. ANTERIOR AUSCULTATIONS REVEALED COARSE CRACKLES THROUGHOUT ALL LUNG COPE, SXN MODERATE PALE YELLOW THICK SECRETIONS. PT CURRENTLY SATING 98% AND NO SIGNS OF RESPIRATORY DISTRESS NOTED AT THIS TIME. WILL CONTINUE TO MONITOR.
[2021-10-29] VITALS: BP 99/63
[2021-10-29] MEDS: PIPERACILLIN/TAZOBACTAM 3.375 GM in DEXTROSE 5% 50 ML IV SCH ×4 (00:15→18:46)
[2021-10-29] MEDS: POLYVINYL ALCOHOL 1.4% OP 15 ML SOL OP SCH ×4 (00:16→18:46)
--- NOTE | 2021-10-29 00:17 | NUR ---
ALL DUE MEDS GIVEN. NO ADVERSE REACTION NOTED. WILL CONTINUE TO MONITOR THE PT.
[2021-10-29] MEDS: DEXTROSE 5% 1,000 ML IV SCH ×2 (01:30→09:30)
[2021-10-29] MEDS: Z-GUARD PASTE TP SCH ×2 (01:39→13:12)
--- NOTE | 2021-10-29 03:15 | NUR ---
PT IS SLEEPING IN BED COMFORTABLY. PT IS NOT IN ANY DISTRESS. BREATHING EVEN AND UNLABORED. SATING 96%. IVF RUNNING PER MD ORDER. FEEDING RUNNING PER MD ORDER. BED AT THE LOWEST POSITION. HEAD OF BED RAISED. ALL SAFETY MEASURES TAKEN. WILL CONTINUE TO MONITOR THE PT.
[2021-10-29 04:00] VITALS: BP 110/59
[2021-10-29 04:54] LABS: BASOPHILS % (AUTO) 0.2 % (0.0-2.0); EOSINOPHILS % (AUTO) 1.1 % (0.0-4.0); HEMOGLOBIN 12.1 g/dL (12.0-18.0); LYMPHOCYTES # (AUTO) 0.2 K/uL (2.0-11.5); LYMPHOCYTES % (AUTO) 5.7 % (20.5-51.1); MEAN CORPUSCULAR HEMOGLOBIN 29 pg (27-31); MEAN CORPUSCULAR HGB CONC 33 g/dL (33-37); MEAN CORPUSCULAR VOLUME 87.5 fL (80-94); MONOCYTES # (AUTO) 0.6 K/uL (0.8-1.0); MONOCYTES % (AUTO) 14.1 % (1.7-9.3); NEUTROPHILS # (AUTO) 3.3 K/uL (1.8-7.7); NEUTROPHILS % (AUTO) 78.9 % (42.2-75.2); PLATELET COUNT (AUTO) 154 K/uL (140-450); RED BLOOD CELL COUNT(AUTO) 4.23 MIL/uL (4.20-6.10); RED CELL DISTRIBUTION WIDTH 15.3 % (11.6-13.7); WHITE BLOOD COUNT (AUTO) 4.2 K/uL (4.8-10.8)
[2021-10-29 05:27] LABS: ANION GAP 3.7 (8-16); CARBON DIOXIDE 40.9 mmol/L (21-32); CREATININE 0.3 mg/dL (0.6-1.3); POTASSIUM 3.6 mmol/L (3.5-5.1)
--- NOTE | 2021-10-29 06:22 | NUR ---
PT WAS CLEANED AND CHANGED. PT IS NOT IN ANY DISTRESS. ALL SAFETY MEASURES TAKEN. WILL CONTINUE TO MONITOR THE PT.
--- NOTE | 2021-10-29 07:23 | NUR ---
ENDORSED PT TO DAY SHIFT RN FOR CONTINUITY OF CARE. PT IS STABLE.
--- NOTE | 2021-10-29 07:56 | NUR ---
RECEIVED ENDORSEMENT FROM PM SHIFT NURSE THAT PATIENT REST ON BED, MIDLINE AT MÓNICA W/ D5 INFUSING @125ML/HR. G-TUBE OSMOLITE @65ML/HR, O2 97% W/ FIO2 SET ON 50. WILL CONTINUE TO MONITOR PATIENT.
[2021-10-29 08:00] VITALS: BP 131/98
[2021-10-29] MEDS: FOAM DRESSING TP SCH (09:00)
[2021-10-29] MEDS ORDERED: KCL 20 MEQ/WATER INJ PREMIX 100 ML IV SCH (10:00)
[2021-10-29] MEDS: POLYETHYLENE GLYCOL 17 GM/PKT GT SCH ×2 (11:08→20:39)
[2021-10-29] MEDS: PANTOPRAZOLE 40 MG INJ VIAL IVP SCH (11:08)
[2021-10-29] MEDS: VENLAFAXINE 37.5 MG TAB GT SCH (11:09)
[2021-10-29 12:00] VITALS: BP 122/86
--- NOTE | 2021-10-29 12:03 | NUR ---
DR. ZAMARRIPA IS HERE AND ORDER TO GIVE 1 MORE LITER D5, CHANGE G-TUBE FEED WATER FLUSH TO 300ML Q4HR BASED ON PATIENT CURRENT CONDITION AND LAB RESULT @10/29/2021.
[2021-10-29] MEDS: GAUZE TP SCH (13:12)
[2021-10-29 16:00] VITALS: BP 139/90
--- NOTE | 2021-10-29 16:30 | NUR ---
10/29/21 RD FOLLOW UP COMPLETED PLEASE REFER TO NUTRITION ASSESSMENT UNDER CARE ACTIVITY FOR ESTIMATED NUTRITIONAL NEEDS. 1. CONTINUE ON OSMOLITE @ 65 ML/HR TOLERATED 3. RD TO FOLLOW-UP 2-3 DAYS, HIGH RISK REVIEWED BY MYAH BARBOZA RD
--- NOTE | 2021-10-29 19:43 | NUR ---
ENDORSE PT TO PM SHIFT NURSE WHILE PATIENT REST IN BED, MIDLINE AT MÓNICA W/ ZOSYN INFUSING @100ML/HR. G-TUBE OSMOLITE @65ML/HR, O2 96% W/ FIO2 SET ON 40
--- NOTE | 2021-10-29 19:52 | NUR ---
RECEIVED BEDSIDE REPORT FROM DAY SHIFT RN FOR CONTINUITY OF CARE. PT IS AWAKE IN BED.T IS TRACH TO VENT,FIO2 40%, VT 500, PEEP 5, RATE 12, BREATHING EVEN AND UNLABORED.PT HAS SUPRAPUBIC CATH DRAINING CLEAR YELLOW URINE. PT HAS MÓNICA MIDLINE WITH D5 FLUSHING WELL. PT HAS TUBE FEEDING INFUSING 65 ML/HR. HOB RAISED.ALL SAFETY MEASURES IN PLACE. WILL CONTINUE TO MONITOR.
[2021-10-29 20:00] VITALS: BP 129/83
--- NOTE | 2021-10-29 21:00 | NUR ---
ALL DUE MEDS GIVEN. NO ADVERSE REACTION NOTED.PT TOLERATED WELL. WILL CONTINUE TO MONITOR THE PT.
--- NOTE | 2021-10-29 22:00 | NUR ---
PT REPOSITIONED. PT TOLERATED WELL. WILL CONTINUE TO MONITOR.
[2021-10-30] VITALS: BP 134/79
[2021-10-30] MEDS: POLYVINYL ALCOHOL 1.4% OP 15 ML SOL OP SCH ×4 (00:19→17:20)
[2021-10-30] MEDS: PIPERACILLIN/TAZOBACTAM 3.375 GM in DEXTROSE 5% 50 ML IV SCH ×4 (00:19→17:20)
[2021-10-30] MEDS: Z-GUARD PASTE TP SCH ×2 (00:19→13:00)
--- NOTE | 2021-10-30 00:22 | NUR ---
ALL DUE MEDS GIVEN. NO ADVERSE REACTION NOTED.PT TOLERATED WELL. WILL CONTINUE TO MONITOR THE PT.
[2021-10-30 04:00] VITALS: BP 145/92
--- NOTE | 2021-10-30 04:20 | NUR ---
PT ASLEEP. VISIBLE CHEST RISE AND FALL NOTED. NO RESPIRATORY DISTRESS NOTED. ALL PRECAUTIONS IN PLACE.WILL CONTINUE TO MONITOR.
[2021-10-30 05:32] LABS: BASOPHILS % (AUTO) 0.3 % (0.0-2.0); EOSINOPHILS # (AUTO) 0.1 K/uL (0-0.4); EOSINOPHILS % (AUTO) 1.8 % (0.0-4.0); HEMATOCRIT 42.9 % (36-52); HEMOGLOBIN 14.1 g/dL (12.0-18.0); LYMPHOCYTES # (AUTO) 0.6 K/uL (2.0-11.5); LYMPHOCYTES % (AUTO) 11.5 % (20.5-51.1); MEAN CORPUSCULAR HEMOGLOBIN 28 pg (27-31); MEAN CORPUSCULAR HGB CONC 33 g/dL (33-37); MEAN CORPUSCULAR VOLUME 85.9 fL (80-94); MONOCYTES # (AUTO) 0.6 K/uL (0.8-1.0); MONOCYTES % (AUTO) 10.9 % (1.7-9.3); NEUTROPHILS # (AUTO) 3.9 K/uL (1.8-7.7); NEUTROPHILS % (AUTO) 75.5 % (42.2-75.2); PLATELET COUNT (AUTO) 189 K/uL (140-450); RED BLOOD CELL COUNT(AUTO) 4.99 MIL/uL (4.20-6.10); RED CELL DISTRIBUTION WIDTH 15.4 % (11.6-13.7); WHITE BLOOD COUNT (AUTO) 5.1 K/uL (4.8-10.8)
[2021-10-30 05:50] LABS: ANION GAP 3.2 (8-16); CREATININE 0.4 mg/dL (0.6-1.3); POTASSIUM 4.8 mmol/L (3.5-5.1)
[2021-10-30 05:54] LABS: CARBON DIOXIDE 41.6 mmol/L (21-32)
--- NOTE | 2021-10-30 06:18 | NUR ---
SCHEDULED MEDICATIONS GIVEN. TUBE FEEDING CHANGED. PT TOLERATED WELL. NO DISTRESS NOTED. WILL CONTINUE TO MONITOR.
--- NOTE | 2021-10-30 06:19 | NUR ---
PT IS STABLE. NO ACUTE EVENTS THROUGHOUT THE NIGHT.DENIES PAIN. NO S/SX OF DISTRESS AT THIS MOMENT.ALL NEEDS MET. ALL PRECAUTIONS IN PLACE. WILL ENDORSE TO AM SHIFT NURSE.
--- NOTE | 2021-10-30 07:25 | NUR ---
RECEIVED REPORT FROM DRINK MIXER NURSE FOR CONTINUITY OF CARE. PT AWAKE IN BED, NON VERBAL. ON TRACH TO VENT WITH SETTINGS FIO2 40 PEEP 5 VT 500 RATE 12 SATING AT 92% BREATHING SYMMETRICAL. FLACC O. GT INTACT AND PATENT RUNNING OSMOLITE 1.5 AT 65CCC/HR WITH WATER FLUSHES 300CC Q4H. HOB KEPT ELEVATED. MÓNICA MIDLINE DOUBLE LUMEN ON TKO. SUPRAPUBIC CATHETER INTACT AND PATENT DRAINING YELLOW URINE, SMALL AMOUNT OF SEDIMENT NOTED BUT OTHERWISE CLEAR. ALL SAFETY MEASURES IN PLACE. WILL CONTINUE TO MONITOR.
--- NOTE | 2021-10-30 07:28 | NUR ---
ENDORSED PT TO AM SHIFT NURSE FOR CONTINUITY OF CARE. PT IS STABLE.
[2021-10-30 08:00] VITALS: BP 141/90
[2021-10-30] MEDS: POLYETHYLENE GLYCOL 17 GM/PKT GT SCH ×2 (08:09→21:30)
[2021-10-30] MEDS: VENLAFAXINE 37.5 MG TAB GT SCH (08:10)
[2021-10-30] MEDS: PANTOPRAZOLE 40 MG INJ VIAL IVP SCH (08:10)
--- NOTE | 2021-10-30 08:28 | NUR ---
SCHEDULED AM MEDICATIONS GIVEN ORDERED. GASTRIC RESIDUAL IS 100CC. NO NAUSEA/VOMITING NOTED. FLACC O.
--- NOTE | 2021-10-30 10:36 | NUR ---
PT TRANSFERRED TO [facility]
--- NOTE | 2021-10-30 11:50 | NUR ---
PT GRIMACING, ASKED PT IF HE'S IN PAIN PT NODDED. PRN TYLENOL GIVEN FOR PAIN MANAGEMENT
[2021-10-30] MEDS: GAUZE TP SCH (13:00)
--- NOTE | 2021-10-30 15:34 | NUR ---
PT AWAKE IN BED. FLACC O. NO SOB NOTED. SUPRAPUBIC CATHETER INTACT AND PATENT DRAINING YELLOW URINE. FREQUENT ROUNDS DONE. WILL CONTINUE TO MONITOR.
[2021-10-30 18:56] VITALS: BP 102/57
--- NOTE | 2021-10-30 19:25 | NUR ---
ENDORSED PT TO WIRELESS ARCHITECT NURSE FOR CONTINUITY OF CARE. IN STABLE CONDITION
--- NOTE | 2021-10-30 21:37 | NUR ---
HAS BM - WILL CLEAN UP .
--- NOTE | 2021-10-30 22:00 | NUR ---
ROUNDS , AWAKE , O2 SAT 94 % - BP 102/ 62 , HR 75 - WILL CONT. TO MONITOR .
--- NOTE | 2021-10-31 | NUR ---
ROUNDS , O2 SAT WNL , NO SIGNS OF ACUTE DISTRESS NOTED AT THIS TIME .- BP 102/59
[2021-10-31] MEDS: Z-GUARD PASTE TP SCH ×2 (01:10→13:16)
--- NOTE | 2021-10-31 01:23 | NUR ---
BP MEAN 79 - SLEEPING , EASILY AWAKEABLE BY SOUNDS AND TOUCH . WILL CONT TO MONITOR , O2 SAT WNL .
[2021-10-31 02:56] VITALS: BP 105/59
--- NOTE | 2021-10-31 04:00 | NUR ---
ROUNDS , O2 SAT WNL , NO S/SX OF ACUTE DISTRESS NOTED . WILL CONT. TO MONITOR .
--- NOTE | 2021-10-31 06:00 | NUR ---
AWAKE , O2 SAT WNL .
[2021-10-31] MEDS: PIPERACILLIN/TAZOBACTAM 3.375 GM in DEXTROSE 5% 50 ML IV SCH ×5 (06:46→17:16)
[2021-10-31] MEDS: POLYVINYL ALCOHOL 1.4% OP 15 ML SOL OP SCH ×4 (06:47→17:16)
--- NOTE | 2021-10-31 07:25 | NUR ---
RECEIVED ON A Beacon PowerSCAPE R860 VENTILATOR PLUGGED INTO RED OUTLET TOLERATING WELL WITHOUT ADVERSE REACTIONS NOTED TO A PORTEX #8 AIRWAY SECURED WITH A HAYLEY TRACH TIE CUFF PRESSURE CHECKED NOTED AMBU BAG AT BEDSIDE STABLE GOOD CHEST RISE DEEP TRACHEAL SUCTION FOR MODERATE THIN PALE YELLOW SECRETIONS AIRWAY PATENT
[2021-10-31 07:29] LABS: BASOPHILS # (AUTO) 0.1 K/uL (0.00-0.22); EOSINOPHILS % (AUTO) 1.8 % (0.0-4.0); HEMOGLOBIN 12.4 g/dL (12.0-18.0)
[2021-10-31 07:31] LABS: BASOPHILS % (AUTO) 0.7 % (0.0-2.0); EOSINOPHILS # (AUTO) 0.2 K/uL (0-0.4); HEMATOCRIT 37.3 % (36-52); LYMPHOCYTES # (AUTO) 1.4 K/uL (2.0-11.5); LYMPHOCYTES % (AUTO) 14.9 % (20.5-51.1); MEAN CORPUSCULAR HEMOGLOBIN 28 pg (27-31); MEAN CORPUSCULAR HGB CONC 33 g/dL (33-37); MEAN CORPUSCULAR VOLUME 85.2 fL (80-94); MONOCYTES # (AUTO) 1.2 K/uL (0.8-1.0); MONOCYTES % (AUTO) 12.6 % (1.7-9.3); NEUTROPHILS # (AUTO) 6.8 K/uL (1.8-7.7); PLATELET COUNT (AUTO) 211 K/uL (140-450); RED BLOOD CELL COUNT(AUTO) 4.38 MIL/uL (4.20-6.10); WHITE BLOOD COUNT (AUTO) 9.7 K/uL (4.8-10.8)
--- NOTE | 2021-10-31 07:40 | NUR ---
ENDORSED - PT - STABLE , O2 SAT 95 %
--- NOTE | 2021-10-31 07:42 | NUR ---
RECEIVED PATIENT FROM SEISMOGRAPHER NURSE FOR CONTINUITY OF CARE. PT IS STABLE, AOX1, APHASIC. RESPIRATIONS EVEN AND UNLABORED. ON MECH VENT WITH SETTINGS ON A/C VC 50 FIO2%, 500 VT, RATE 12, PEEP 5. O2 SATURATION AT 97%. SKIN IS WARM, DRY, AND NON-INTACT. HAS MÓNICA MIDLINE. INTACT AND PATENT. ON TUBE FEEDING RUNNING OSMOLITE 1.5L 65ML/HR AND H2O FLUSH AT 150 ML Q6H. HAS SUPRAPUBIC CATHETER IN PLACE DRAINING YELLOW URINE BY GRAVITY. FLACC 0. DISCUSSED PLAN OF CARE. SAFETY PRECAUTIONS IN PLACE. CALL LIGHT WITHIN REACH. WILL CONTINUE TO MONITOR.
[2021-10-31 07:58] LABS: ANION GAP 5.6 (8-16); CARBON DIOXIDE 37.2 mmol/L (21-32); CREATININE 0.3 mg/dL (0.6-1.3); POTASSIUM 4.8 mmol/L (3.5-5.1)
[2021-10-31 08:00] VITALS: BP 130/75
--- NOTE | 2021-10-31 09:10 | NUR ---
SATURATION AT 98% ON FIO2 OF 50%, TITRATED TO 45%, MARKEL FERRER NOTIFIED.
--- NOTE | 2021-10-31 09:15 | NUR ---
RT AT BEDSIDE.
--- NOTE | 2021-10-31 09:16 | NUR ---
(10/31/21) RD FOLLOW UP COMPLETED PLEASE REFER TO NUTRITION PROGRESS NOTE UNDER CARE ACTIVITY FOR ESTIMATED NUTRITION NEEDS. RD RECOMMENDATIONS: 1. CONTINUE ON OSMOLITE @ 65 ML/HR WITH FWF 300 ML Q4H TOLERATED. THIS PROVIDES 1560 ML TOTAL VOLUME, 2340 KCAL, 98 GM PROTEIN, AND 1188 ML FREE WATER WHICH MEETS 98% UPPER-END EST KCAL NEEDS AND >100% EST UPPER-END PROTEIN NEEDS; ADEQUATE. 2. RD TO FOLLOW-UP 2-3 DAYS, HIGH RISK ANA ROSA RIOS MS, RDN
[2021-10-31] MEDS: VENLAFAXINE 37.5 MG TAB GT SCH (09:38)
[2021-10-31] MEDS: PANTOPRAZOLE 40 MG INJ VIAL IVP SCH (09:38)
[2021-10-31] MEDS: POLYETHYLENE GLYCOL 17 GM/PKT GT SCH ×2 (09:40→20:49)
--- NOTE | 2021-10-31 09:55 | NUR ---
ALL SCHEDULED MEDS GIVEN. PT IS STABLE. NO DISTRESS NOTED. WILL CONTINUE TO MONITOR.
--- NOTE | 2021-10-31 11:05 | NUR ---
SATURATION 96% ON FIO2 OF 50% PEEP 5cmH2O TITRATED FIO2 TO 45% NABIL/RN NOTIFIED DEEP TRACHEAL SUCTION FOR MODERATE THIN PALE YELLOW SECRETIONS
--- NOTE | 2021-10-31 11:15 | NUR ---
REVIEWED WITH DR. ROBERTO LE OF PERSISTENT PULMONARY WHEEZING TORBO: OKAY FOR MULTIFOLD OPERATOR TO PLACE ORDER; HHN Q6 PRN FOR SOB/WHEEZE
--- NOTE | 2021-10-31 11:40 | NUR ---
FIO2 INCREASED BY DR. LAINE ARMAS TO 55% DUE TO DECLINING SATURATION 87%
--- NOTE | 2021-10-31 11:52 | NUR ---
PATIENT PRESENTING NO VIABLE PULSES ABG ATTEMPTS X 4 BY Pallavi HEATON, STRINGED INSTRUMENT REPAIRER UNABLE TO OBTAIN AT THIS TIME STRINGED INSTRUMENT REPAIRER TO ATTEMPT AT A LATER TIME
--- NOTE | 2021-10-31 12:12 | NUR ---
CHECKED ON PATIENT. PT IS STABLE. NO DISTRESS NOTED. WILL CONTINUE TO MONITOR.
[2021-10-31] MEDS: GAUZE TP SCH (13:15)
[2021-10-31] MEDS: ALBUTEROL SULFATE/IPRATROPIU 3 ML SOL IH PRN (14:07)
--- NOTE | 2021-10-31 14:10 | NUR ---
NO VIABLE PULSES BILATERAL ABG ATTEMPTS X 5 UNABLE TO OBTAIN STITCHDOWN THREAD LASTER TO ATTEMPT AT A LATER TIME
--- NOTE | 2021-10-31 14:15 | NUR ---
RT AT PATIENT'S BEDSIDE.
[2021-10-31 14:25] VITALS: BP 104/54
--- NOTE | 2021-10-31 14:25 | NUR ---
LOC AWAKE STABLE GOOD CHEST RISE BREATH SOUNDS COARSE RHONCHI AND WHEEZE BILATERAL DEEP TRACHEAL SUCTION FOR SMALL THIN YELLOW SECRETIONS
[2021-10-31 16:00] VITALS: BP 112/58
--- NOTE | 2021-10-31 17:30 | NUR ---
ALL SCHEDULED MEDS GIVEN. PT IS STABLE. NO DISTRESS NOTED. WILL CONTINUE TO MONITOR.
--- NOTE | 2021-10-31 19:24 | NUR ---
ENDORSED TO RADIATION / CHEMISTRY TECHNICIAN NURSE FOR CONTINUITY OF CARE. PT IS STABLE.
--- NOTE | 2021-10-31 19:30 | NUR ---
RECEIVED BEDSIDE REPORT FORM DAY SHIFT RN FOR CONTINUITY OF CARE. PT IS SLEEPING COMFORTABLY IN BED. PT IS NOT IN ANY DISTRESS. BREATHING EVEN AND UNLABORED. PT IS TRACH TO VENT SATING 98%. FIO2 55%, VT 500, RT 12, PEEP 5. PT HAS MÓNICA MIDLINE. PT HAS SUPRAPUBIC CATH DRAINING CLEAR YELLOW URINE. FEEDING RUNNING 65 CC/HR. BED AT THE LOWEST POSITION. HEAD OF BED RAISED. ALL SAFETY PRECAUTIONS TAKEN. WILL CONTINUE TO MONITOR THE PT.
[2021-10-31 20:00] VITALS: BP 100/50
--- NOTE | 2021-10-31 20:55 | NUR ---
ALL DUE MEDS GIVEN. NO ADVERSE REACTION NOTED. WILL CONTINUE TO MONITOR THE PT.
[2021-11-01] VITALS (7 sets, daily range): BP systolic 94–121; BP diastolic 47–72
[2021-11-01] MEDS: PIPERACILLIN/TAZOBACTAM 3.375 GM in DEXTROSE 5% 50 ML IV SCH ×5 (00:44→23:52)
[2021-11-01] MEDS: POLYVINYL ALCOHOL 1.4% OP 15 ML SOL OP SCH ×5 (00:45→23:52)
--- NOTE | 2021-11-01 00:45 | NUR ---
PT IS SLEEPING IN BED COMFORTABLY. PT IS NOT IN ANY DISTRESS. PT IS TRACH TO VENT SATING 97%. BED AT THE LOWEST POSITION. HEAD OF BED RAISED. ALL SAFETY MEASURES TAKEN. WILL CONTINUE TO MONITOR THE PT.
[2021-11-01] MEDS ORDERED: VANCOMYCIN PER PHARMACY MC PRN (00:55)
[2021-11-01] MEDS: Z-GUARD PASTE TP SCH ×2 (01:08→12:48)
[2021-11-01] MEDS ORDERED: VANCOMYCIN 1,500 MG in DEXTROSE 5% 500 ML IV SCH (01:10)
[2021-11-01] MEDS ORDERED: VANCOMYCIN 500 MG VIAL ONE (01:28)
[2021-11-01] MEDS ORDERED: VANCOMYCIN 1,000 MG VIAL ONE (01:28)
--- NOTE | 2021-11-01 02:47 | NUR ---
FIO2 TITRATED TO 50% AND TOLERATING WELL AT THIS TIME SPO2 95% 5MIN POST TITRATION WILL CONTINUE TO MONITOR
[2021-11-01 07:11] LABS: BASOPHILS # (AUTO) 0.1 K/uL (0.00-0.22); BASOPHILS % (AUTO) 0.4 % (0.0-2.0); EOSINOPHILS # (AUTO) 0.2 K/uL (0-0.4); EOSINOPHILS % (AUTO) 1.8 % (0.0-4.0); HEMATOCRIT 38.6 % (36-52); HEMOGLOBIN 12.6 g/dL (12.0-18.0); LYMPHOCYTES # (AUTO) 1.3 K/uL (2.0-11.5); LYMPHOCYTES % (AUTO) 10.3 % (20.5-51.1); MEAN CORPUSCULAR HEMOGLOBIN 28 pg (27-31); MEAN CORPUSCULAR HGB CONC 33 g/dL (33-37); MEAN CORPUSCULAR VOLUME 87.1 fL (80-94); MONOCYTES # (AUTO) 1.5 K/uL (0.8-1.0); MONOCYTES % (AUTO) 12.1 % (1.7-9.3); NEUTROPHILS # (AUTO) 9.4 K/uL (1.8-7.7); NEUTROPHILS % (AUTO) 75.4 % (42.2-75.2); PLATELET COUNT (AUTO) 189 K/uL (140-450); RED BLOOD CELL COUNT(AUTO) 4.43 MIL/uL (4.20-6.10); RED CELL DISTRIBUTION WIDTH 15.9 % (11.6-13.7); WHITE BLOOD COUNT (AUTO) 12.5 K/uL (4.8-10.8)
[2021-11-01 07:23] LABS: ANION GAP 5.2 (8-16); CARBON DIOXIDE 36.5 mmol/L (21-32); CREATININE 0.4 mg/dL (0.6-1.3); POTASSIUM 4.7 mmol/L (3.5-5.1)
--- NOTE | 2021-11-01 07:29 | NUR ---
ENDORSED PT TO DAY SHIFT RN FOR CONTINUITY OF CARE. PT IS STABLE.
--- NOTE | 2021-11-01 07:30 | NUR ---
RECEIVED PATIENT FROM COTTON CLASSER NURSE FOR CONTINUITY OF CARE. PT IS STABLE, AOX1, APHASIC. RESPIRATIONS EVEN AND UNLABORED. ON MECH VENT WITH SETTINGS ON A/C VC 55 FIO2%, 500 VT, RATE 12, PEEP 5. O2 SATURATION AT 94%. SKIN IS WARM, DRY, AND NON-INTACT. HAS MÓNICA MIDLINE. INTACT AND PATENT. ON TUBE FEEDING RUNNING OSMOLITE 1.5L 65ML/HR AND H2O FLUSH AT 150 ML Q6H. HAS SUPRAPUBIC CATHETER IN PLACE DRAINING YELLOW URINE BY GRAVITY. FLACC 0. DISCUSSED PLAN OF CARE. SAFETY PRECAUTIONS IN PLACE. CALL LIGHT WITHIN REACH. WILL CONTINUE TO MONITOR.
[2021-11-01] MEDS: PANTOPRAZOLE 40 MG INJ VIAL IVP SCH (09:48)
[2021-11-01] MEDS: FOAM DRESSING TP SCH (09:48)
[2021-11-01] MEDS: POLYETHYLENE GLYCOL 17 GM/PKT GT SCH ×2 (09:48→21:08)
[2021-11-01] MEDS: VENLAFAXINE 37.5 MG TAB GT SCH (09:48)
[2021-11-01] MEDS: VANCOMYCIN 1,500 MG in DEXTROSE 5% 500 ML IV SCH ×2 (09:52→18:17)
--- NOTE | 2021-11-01 09:55 | NUR ---
ALL SCHEDULED MEDS GIVEN. PT IS STABLE. NO DISTRESS NOTED. WILL CONTINUE TO MONITOR.
[2021-11-01] MEDS: GAUZE TP SCH (12:48)
--- NOTE | 2021-11-01 13:00 | NUR ---
ALL SCHEDULED MEDS GIVEN. PT IS STABLE. NO DISTRESS NOTED. WILL CONTINUE TO MONITOR.
[2021-11-01] MEDS: ALBUTEROL SULFATE/IPRATROPIU 3 ML SOL IH PRN (14:35)
--- NOTE | 2021-11-01 15:45 | NUR ---
RT AT BEDSIDE.
--- NOTE | 2021-11-01 18:17 | NUR ---
ALL SCHEDULED MEDS GIVEN. PT IS STABLE. NO DISTRESS NOTED. WILL CONTINUE TO MONITOR.
--- NOTE | 2021-11-01 19:14 | NUR ---
ENDORSED TO RHIC SYSTEMS SAFETY ENGINEER NURSE FOR CONTINUITY OF CARE. PT IS STABLE.
--- NOTE | 2021-11-01 19:20 | NUR ---
RECEIVED BEDSIDE REPORT FORM DAY SHIFT RN FOR CONTINUITY OF CARE. PT IS SLEEPING COMFORTABLY IN BED. PT IS NOT IN ANY DISTRESS. BREATHING EVEN AND UNLABORED. PT IS TRACH TO VENT SATING 90%. FIO2 65%, VT 500, RT 12, PEEP 5. PT HAS MÓNICA MIDLINE. PT HAS SUPRAPUBIC CATH DRAINING CLEAR YELLOW URINE. FEEDING RUNNING 65 CC/HR. BED AT THE LOWEST POSITION. HEAD OF BED RAISED. ALL SAFETY PRECAUTIONS TAKEN. WILL CONTINUE TO MONITOR THE PT.
--- NOTE | 2021-11-01 21:10 | NUR ---
ALL DUE MEDS GIVEN. NO ADVERSE REACTION NOTED. WILL CONTINUE TO MONITOR THE PT.
--- NOTE | 2021-11-01 23:33 | NUR ---
PT IS AWAKE WATCHING T.V. PT WANTED MOUTH TO BE SUCTION. PT IS NOT IN ANY DISTRESS. BREATHING EVEN AND UNLABORED. PT IS SATING 92%. FEEDING RUNNING PER MD ORDER. BED AT THE LOWEST POSITION. HEAD OF BED RAISED. CALL LIGHT WITHIN REACH. ALL SAFETY MEASURES TAKEN. WILL CONTINUE TO MONITOR THE PT.
[2021-11-02 00:03] VITALS: BP 121/72
--- NOTE | 2021-11-02 01:33 | NUR ---
LAB CALLED. PT CHIOMA SOTELO IS 28.8. CALLED PHARMACY. MEDICATION IS ON HOLD AND DOSAGE WILL BE ADJUSTED.
[2021-11-02] MEDS: Z-GUARD PASTE TP SCH ×2 (01:34→13:30)
[2021-11-02 05:19] VITALS: BP 109/66
[2021-11-02] MEDS: PIPERACILLIN/TAZOBACTAM 3.375 GM in DEXTROSE 5% 50 ML IV SCH ×4 (05:19→23:46)
[2021-11-02 05:20] LABS: BASOPHILS # (AUTO) 0.1 K/uL (0.00-0.22); BASOPHILS % (AUTO) 0.4 % (0.0-2.0); EOSINOPHILS # (AUTO) 0.3 K/uL (0-0.4); EOSINOPHILS % (AUTO) 1.9 % (0.0-4.0); HEMATOCRIT 35.6 % (36-52); HEMOGLOBIN 11.8 g/dL (12.0-18.0); LYMPHOCYTES # (AUTO) 0.7 K/uL (2.0-11.5); LYMPHOCYTES % (AUTO) 4.7 % (20.5-51.1); MEAN CORPUSCULAR HEMOGLOBIN 29 pg (27-31); MEAN CORPUSCULAR HGB CONC 33 g/dL (33-37); MEAN CORPUSCULAR VOLUME 86.2 fL (80-94); MONOCYTES # (AUTO) 1.3 K/uL (0.8-1.0); MONOCYTES % (AUTO) 8.2 % (1.7-9.3); NEUTROPHILS # (AUTO) 13.1 K/uL (1.8-7.7); NEUTROPHILS % (AUTO) 84.8 % (42.2-75.2); PLATELET COUNT (AUTO) 194 K/uL (140-450); RED BLOOD CELL COUNT(AUTO) 4.13 MIL/uL (4.20-6.10); RED CELL DISTRIBUTION WIDTH 15.7 % (11.6-13.7); WHITE BLOOD COUNT (AUTO) 15.5 K/uL (4.8-10.8)
[2021-11-02 05:30] LABS: ANION GAP 3.4 (8-16); CARBON DIOXIDE 39.8 mmol/L (21-32); CREATININE 0.4 mg/dL (0.6-1.3); POTASSIUM 5.2 mmol/L (3.5-5.1)
[2021-11-02 05:34] LABS: MAGNESIUM 2.2 mg/dL (1.8-2.4); PHOSPHORUS 4.5 mg/dL (2.5-4.9)
[2021-11-02] MEDS: VANCOMYCIN 1,500 MG in DEXTROSE 5% 500 ML IV SCH ×2 (05:57→18:45)
[2021-11-02] MEDS: POLYVINYL ALCOHOL 1.4% OP 15 ML SOL OP SCH ×4 (05:57→23:53)
--- NOTE | 2021-11-02 06:00 | NUR ---
ALL DUE MEDS GIVEN. NO ADVERSE REACTION NOTED. WILL CONTINUE TO MONITOR THE PT
[2021-11-02] MEDS: ALBUTEROL SULFATE/IPRATROPIU 3 ML SOL IH PRN (06:24)
--- NOTE | 2021-11-02 07:22 | NUR ---
ENDORSED PT TO DAY SHIFT RN FOR CONTINUITY OF CARE. PT IS STABLE.
--- NOTE | 2021-11-02 07:30 | NUR ---
RECEIVED PT CARE AND REPORT FROM LACIE FLETCHER SHIFT. PT IS RESTING IN BED ON RIGHT SIDE. APHASIC, OU CLOSED. NO VISIBLE S/S OF DISTRESS, DISCOMFORT, PAIN OR SOB. CALL LIGHT WITHIN REACH. INFORMED BY NOC SHIFT THAT PT REQUIRES RT PRESENT DURING CHANGES AND REPOSITIONING D/T PT DESATURATING. WILL MONITOR. ALL NEEDS MET AT THIS TIME.
--- NOTE | 2021-11-02 07:35 | NUR ---
RECEIVED PATIENT FROM AM NURSE FOR CONTINUITY OF CARE.PT IS STABLE
[2021-11-02 08:05] VITALS: BP 116/70
[2021-11-02] MEDS: POLYETHYLENE GLYCOL 17 GM/PKT GT SCH ×2 (08:58→21:19)
[2021-11-02] MEDS: PANTOPRAZOLE 40 MG INJ VIAL IVP SCH (08:58)
[2021-11-02] MEDS: VENLAFAXINE 37.5 MG TAB GT SCH (08:59)
--- NOTE | 2021-11-02 09:40 | NUR ---
ATTEMPTED TO CALL FATHER BACK. NO ANSWER AT THIS TIME.
--- NOTE | 2021-11-02 10:52 | NUR ---
FIO2 TITRATED TO 40%. SPO2 92%, WILL CONTINUE TO MONITOR.
--- NOTE | 2021-11-02 11:10 | NUR ---
WOUND CARE RE-EVALUATION NOTE: NO NEW SKIN BREAKS, NO CHANGE TO SUPRAPUBIC CATH JESUS MANUEL-OSTOMY SKIN EROSION,POC DISCUSSED WITH CHARGE NURSE, PT. PENDING ON COLOSTOMY FOR SBO. -POSTERIOR NECK, MOISTURE ASSOCIATED EROSIONS PINK, DRY, 0.5X3CM SUPERFICIAL DEPTH -GT JESUS MANUEL STOMA SKIN RED WITH RASHES IMPROVING SKIN INTACT -OLD HEALED SACRAL/BUTTOCKS WOUND THIN SCAR TISSUE WITH MOISTURE ASSOCIATED DERMATITIS PINK, MOIST, SUPERFICIAL EROSIONS IMPROVING. OLD HEALED JESUS MANUEL-WOUND SKIN EXTENDED TO RIGHT AND LEFT ISCHIALS,SKIN MOIST INTACT. -SUPRAPUBIC CATH, JESUS MANUEL-OSTOMY SKIN EROSION WITH FULL THICKNESS SKIN LOSS, 6D7W2UP, WOUND BED 100% RED GRANULATION TISSUE WITH SMALL AMOUNT SEROUS DRAINAGE, NO ODOR, JESUS MANUEL-WOUND SKIN MOIST AND INTACT.
--- NOTE | 2021-11-02 13:02 | NUR ---
11/02/21 RD FOLLOW UP COMPLETED PLEASE REFER TO NUTRITION ASSESSMENT UNDER CARE ACTIVITY FOR ESTIMATED NUTRITIONAL NEEDS. 1. RECOMMENDED VITAL AF 1.2 WITH A GOAL RATE OF 60 ML/HR -FWF: 150 ML Q6H OR PER MD -START AT 20 ML/HR AND INCREASE BY 20 ML Q4H TOLERATED -WILL PROVIDE 1728 KCAL AND 108 GM PROTEIN, MEETING 87% ESTIMATED KCAL AND 100% ESTIMATED PROTEIN NEEDS; ADEQUATE 2. MONITOR NUTRITION-RELATED LAB VALUES AND GASTRIC RESIDUALS 3. RD TO FOLLOW-UP 2-3 DAYS, HIGH RISK AMANDA HUFF RD
--- NOTE | 2021-11-02 13:22 | NUR ---
NEW DIET ORDERS RECEIVED. VITAL AF 1.2 GOAL 60ML/HR. FLARE MAN STATED TO START AT 20ML/HR AND INCREASE BY 20ML/HR Q. 4HR.
[2021-11-02] MEDS: GAUZE TP SCH (13:30)
--- NOTE | 2021-11-02 14:00 | NUR ---
STARTED PATIENT ON VITAL AF 1.2 AT 20ML/HR.
[2021-11-02 16:00] VITALS: BP 134/81
[2021-11-02 18:29] VITALS: BP 145/95
--- NOTE | 2021-11-02 18:59 | NUR ---
PER DR. GONZALEZ, NO KAYEXALATE FOR HIGH POTASSIUM. IF ANY DR ORDERS THIS MED, PLEASE CONTACT DR. GONZALEZ.
--- NOTE | 2021-11-02 18:59 | NUR ---
PT RESTING WITH OU CLOSED, NO VISIBLE S/S OF DISTRESS. WILL ENDORSE TO NOC SHIFT.
--- NOTE | 2021-11-02 19:25 | NUR ---
RECEIVED PT FROM AM NURSE FOR CONTINUITY OF CARE.PT IS STABLE
--- NOTE | 2021-11-02 21:30 | NUR ---
ALL MEDICATIONS GIVEN,TOLERATED WELL,BREATHING EVEN AND UNLABORED
[2021-11-02 22:31] VITALS: BP 119/72
--- NOTE | 2021-11-03 01:00 | NUR ---
PATIENT ASLEEP,RESPIRATION EVEN AND UNLABORED,NO DITRESS NOTED
[2021-11-03 01:59] VITALS: BP 119/74
[2021-11-03] MEDS: Z-GUARD PASTE TP SCH ×2 (02:56→13:01)
--- NOTE | 2021-11-03 03:00 | NUR ---
PATIENT IS RESTING QUIETLY ,BREATHING EVEN AND UNLABORED,NO DISTRESS NOTED
[2021-11-03 04:00] VITALS: BP 136/80
[2021-11-03] MEDS ORDERED: VANCOMYCIN 500 MG VIAL ONE (05:33)
[2021-11-03] MEDS ORDERED: VANCOMYCIN 1,000 MG VIAL ONE (05:34)
[2021-11-03 05:48] LABS: BASOPHILS % (AUTO) 0.1 % (0.0-2.0); EOSINOPHILS # (AUTO) 0.3 K/uL (0-0.4); EOSINOPHILS % (AUTO) 2.6 % (0.0-4.0); HEMATOCRIT 34.1 % (36-52); HEMOGLOBIN 11.3 g/dL (12.0-18.0); LYMPHOCYTES # (AUTO) 0.6 K/uL (2.0-11.5); LYMPHOCYTES % (AUTO) 6.7 % (20.5-51.1); MEAN CORPUSCULAR HEMOGLOBIN 28 pg (27-31); MEAN CORPUSCULAR HGB CONC 33 g/dL (33-37); MEAN CORPUSCULAR VOLUME 85.8 fL (80-94); MONOCYTES % (AUTO) 10.1 % (1.7-9.3); NEUTROPHILS # (AUTO) 7.8 K/uL (1.8-7.7); NEUTROPHILS % (AUTO) 80.5 % (42.2-75.2); PLATELET COUNT (AUTO) 176 K/uL (140-450); RED BLOOD CELL COUNT(AUTO) 3.97 MIL/uL (4.20-6.10); RED CELL DISTRIBUTION WIDTH 16.1 % (11.6-13.7); WHITE BLOOD COUNT (AUTO) 9.6 K/uL (4.8-10.8)
--- NOTE | 2021-11-03 06:00 | NUR ---
CLEANED AND REPOSITIONED THE PATIENT,NO SOB NOTED. WILL CONTINUE TO MONITOR
[2021-11-03] MEDS: VANCOMYCIN 1,500 MG in DEXTROSE 5% 500 ML IV SCH (06:01)
[2021-11-03] MEDS: PIPERACILLIN/TAZOBACTAM 3.375 GM in DEXTROSE 5% 50 ML IV SCH ×3 (06:02→17:18)
[2021-11-03] MEDS: POLYVINYL ALCOHOL 1.4% OP 15 ML SOL OP SCH ×3 (06:04→17:18)
[2021-11-03 06:42] LABS: ANION GAP 4.2 (8-16); CARBON DIOXIDE 40.3 mmol/L (21-32); CREATININE 0.5 mg/dL (0.6-1.3); POTASSIUM 4.5 mmol/L (3.5-5.1)
[2021-11-03 06:46] LABS: MAGNESIUM 2.3 mg/dL (1.8-2.4); PHOSPHORUS 4.4 mg/dL (2.5-4.9)
--- NOTE | 2021-11-03 06:53 | NUR ---
LABS CALLED REGARDING PATIENT'S CO2 40.3. TEXTED DR LE AWAITING FOR REPLY
[2021-11-03 07:10] VITALS: BP 109/67
--- NOTE | 2021-11-03 07:10 | NUR ---
RECEIVED ON A Science FantasySCAPE R860 VENTILATOR PLUGGED INTO RED OUTLET TOLERATING WELL WITHOUT ADVERSE REACTIONS NOTED TO A PORTEX DFEN #8 AIRWAY SECURED WITH A HAYLEY TRACH TIE CUFF PRESSURE CHECKED NOTED AMBU BAG AT BEDSIDE LOC AWAKE DEEP CHEST RISE DEEP TRACHEAL SUCTION FOR COPIOUS SEMI THICK PALE YELLOW SECRETINS AIRWAY PATENT
--- NOTE | 2021-11-03 07:29 | NUR ---
ENDORSED PT TO AM NURSE FOR CONTINUITY OF CARE. PT IS STABLE
--- NOTE | 2021-11-03 07:30 | NUR ---
ENDORSED PT FROM NIGHTSHIFT NURSE FOR CONTINUITY OF CARE. DISCUSSED PLAN OF CARE. PT AWAKE, APHASIC, AND DID NOT TRACK WITH EYES. VITAL SIGNS WNL, BREATHING EVEN AND UNLABORED FROM TRACHE VENT. G-TUBE CLEAN, DRY AND INTACT, FEEDING @ 60ML/HR, SKIN IS WARM, DRY, AND INTACT. REDNESS ON PERINEAL AREA NOTED FROM INCONTINENCE, PER NIGHTSHIFT NURSE. IV CLEAN, PATENT, AND INTACT. PT STABLE.
[2021-11-03] MEDS: POLYETHYLENE GLYCOL 17 GM/PKT GT SCH ×2 (08:53→21:32)
[2021-11-03] MEDS: PANTOPRAZOLE 40 MG INJ VIAL IVP SCH (08:53)
[2021-11-03] MEDS: VENLAFAXINE 37.5 MG TAB GT SCH (08:54)
--- NOTE | 2021-11-03 09:30 | NUR ---
PT IS STABLE. G TUBE FEEDING IS INFUSING. RESIDUAL IS LESS THAN 5 ML. TOLERATING FEEDING WELL. PICC LINE INFUSING TKO. NO DISTRESS AT THIS TIME.
--- NOTE | 2021-11-03 10:20 | NUR ---
RESTING COMFORTABLY GOOD CHEST RISE REVIEWED ABG SAMPLE REPORT 10/31/2021 AT 2228 cO2 66.2 INCREASED MECHANICAL RATE TO 16 BPM; DEEP TRACHEAL SUCTION FOR LARGE SEMI THICK TO THIN YELLOW SECRETIONS AIRWAY PATENT OBTAINED SPUTUM CULTURE SPECIMEN FORWARDED TO LAB
--- NOTE | 2021-11-03 11:38 | NUR ---
SCRAP PILER ASSIST WITH DR. SHIRA ARMAS FOR TRACHEOSTOMY TUBE CHANGE PORTEX DFEN #8 TO A [facility] XLT #8 PATIENT TOLERATED PROCEDURE WELL WITHOUT COMPLICATIONS NOTED
--- NOTE | 2021-11-03 11:43 | NUR ---
DR. ARMAS PLACED NEW TRACH IN PT WITH POOJA ULRICH, AT THE BEDSIDE. PT TOLERATED WELL. CHEST XR ORDERED, WILL WAIT FOR TECH TO ARRIVE.
--- NOTE | 2021-11-03 11:48 | NUR ---
NO DISTRESS NOTED EQUAL CHEST RISE DEEP TRACHEAL SUCTION FOR MODERATE THIN YELLOW SECRETIONS AIRWAY PATENT
[2021-11-03] MEDS: GAUZE TP SCH (13:01)
[2021-11-03] MEDS: ALBUTEROL SULFATE/IPRATROPIU 3 ML SOL IH PRN ×2 (13:22→16:48)
[2021-11-03 13:23] VITALS: BP 131/72
--- NOTE | 2021-11-03 13:23 | NUR ---
NO INDICATION OF RESPIRATORY DISTRESS NOTED GOOD CHEST RISE DEEP TRACHEAL SUCTION FOR LARGE THIN PALE YELLOW SECRETIONS AIRWAY PATENT
--- NOTE | 2021-11-03 13:50 | NUR ---
PT WAS CHANGED AND REPOSITIONED. BUTTOCKS AND PERINEAL CLEANSED. BED BATH GIVEN. NEW BANDAGE APPLIED TO REDNESS ON BUTTOCKS. INCONTINENT DERMATITIS PRESENT. RT ALSO AT BEDSIDE, POOJA. PT IS STABLE. O2 SAT IS 90% ON TRACH TO VENT. FIO2 AT 50%. G TUBE AND SUPRAPUBIC CATH IN PLACE. WILL MONITOR.
[2021-11-03 16:00] VITALS: BP 123/67
--- NOTE | 2021-11-03 16:48 | NUR ---
RESTING WELL GOOD CHEST RISE DEEP TRACHEAL SUCTION FOR SMALL SEMI THICK YELLOW SECRETIONS AIRWAY PATENT SATURATION 98% ON FIO2 OF 50% PEEP 5cmH2O POST HHN THERAPY TITRATED FIO2 TO 45% STEPHON/RN NOTIFIED
--- NOTE | 2021-11-03 17:15 | NUR ---
PROVIDED ORAL CARE FOR PATIENT AND REPOSITIONED PT. PT TOLERATED THIS WELL. O2 SAT IS 95% ON 45% FIO2 TRACH TO VENT. PT IS STABLE.
--- NOTE | 2021-11-03 17:31 | NUR ---
RECEIVED CALL FROM [employer] LIZETH THAT THE VANCO TROUGH IS 23.2. CALLED DENICE, PHARMACIST, AND PER PARAMETERS I WAS INSTRUCTED NOT TO GIVE THE VANCO DUE AT 1800 BECAUSE THE TROUGH IS HIGH. SHE WILL D/C THIS ORDER ON HER END.
--- NOTE | 2021-11-03 17:32 | NUR ---
NO APPARENT PULMONARY DISTRESS NOTED EQUAL CHEST RISE INCREASED AERATION THROUGHOUT APEX TO MID BILATERAL SATURATION 96% ON FIO2 OF 45% PEEP 5cmH2O TITRATED FIO2 TO 40% AUTOMOTIVE PARTS COUNTERPERSON TO MONITOR STEPHON/RN NOTIFIED
--- NOTE | 2021-11-03 17:38 | NUR ---
SATURATION 94% ON FIO2 OF 40% PEEP 5cmH2O
--- NOTE | 2021-11-03 19:15 | NUR ---
ENDORSED PT TO STOCK CAR DRIVER NURSE FOR CONTINUITY OF CARE. PT IS STABLE. O2 SAT IS 95% ON 40% FIO2 TRACH TO VENT. BREATHING IS UNLABORED. PLAN OF CARE DISCUSSED.
--- NOTE | 2021-11-03 19:30 | NUR ---
RECEIVED PATIENT FROM AM NURSE FOR CONTINUITY OF CARE.PT IS STABLE
--- NOTE | 2021-11-03 22:15 | NUR ---
TRACH CARE DONE. FIO2 LOWERED TO 35% SATS 97%
[2021-11-04] VITALS: BP 134/92
--- NOTE | 2021-11-04 00:47 | NUR ---
RECEIVED REPORT AT BEDSIDE FROM TALEND DEVELOPER MARKEL LOUIS FOR CONTINUITY OF CARE.
[2021-11-04] MEDS: PIPERACILLIN/TAZOBACTAM 3.375 GM in DEXTROSE 5% 50 ML IV SCH ×3 (00:52→11:11)
[2021-11-04] MEDS: POLYVINYL ALCOHOL 1.4% OP 15 ML SOL OP SCH ×3 (00:53→11:12)
[2021-11-04] MEDS: Z-GUARD PASTE TP SCH ×2 (00:55→13:03)
--- NOTE | 2021-11-04 01:51 | NUR ---
ORAL CARE AND SUCTIONING PROVIDED. PT TURNED AND REPOSITIONED. VSS. WILL CONTINUE TO MONITOR.
[2021-11-04 05:57] LABS: BASOPHILS % (AUTO) 0.2 % (0.0-2.0); EOSINOPHILS # (AUTO) 0.2 K/uL (0-0.4); HEMOGLOBIN 11.7 g/dL (12.0-18.0); LYMPHOCYTES % (AUTO) 11.1 % (20.5-51.1); MEAN CORPUSCULAR HEMOGLOBIN 28 pg (27-31); MEAN CORPUSCULAR HGB CONC 33 g/dL (33-37); MEAN CORPUSCULAR VOLUME 85.4 fL (80-94); MONOCYTES # (AUTO) 0.8 K/uL (0.8-1.0); MONOCYTES % (AUTO) 9.5 % (1.7-9.3); NEUTROPHILS # (AUTO) 6.8 K/uL (1.8-7.7); NEUTROPHILS % (AUTO) 77.2 % (42.2-75.2); PLATELET COUNT (AUTO) 200 K/uL (140-450); RED CELL DISTRIBUTION WIDTH 15.9 % (11.6-13.7); WHITE BLOOD COUNT (AUTO) 8.8 K/uL (4.8-10.8)
[2021-11-04 05:58] LABS: MAGNESIUM 2.5 mg/dL (1.8-2.4); PHOSPHORUS 4.5 mg/dL (2.5-4.9)
[2021-11-04 06:03] LABS: ANION GAP 6.4 (8-16); CREATININE 0.6 mg/dL (0.6-1.3); POTASSIUM 3.4 mmol/L (3.5-5.1)
--- NOTE | 2021-11-04 07:55 | NUR ---
RECEIVED PATIENT, AOX1, NONVERBAL, ABLE TO TRACK, RESPONSIVE TO VERBAL STIMULI. TRACH TO VENT, RESPIRATIONS EVEN, SPO2 95%. G TUBE CLAMPED. BOWELS DISTENDED, HAD LARGE LOOSE BOWEL MOVEMENT. CLEANED AND REPOSITIONED, NOTED MOISTURE ASSOCIATED DERMATITIS TO BILATERAL BUTTOCKS. HEEL PROTECTORS ON. SUPRAPUBIC CATHETER WITH CLEAR OUTPUT. WILL CONTINUE TO MONITOR.
[2021-11-04 08:00] VITALS: BP 152/95
[2021-11-04] MEDS ORDERED: VANCOMYCIN HCL 1.25 GM in DEXTROSE 5% 250 ML IV SCH (09:00)
--- NOTE | 2021-11-04 09:01 | NUR ---
NOTIFIED DR. CHIANG OF ABDOMINAL X RAY. OKAY TO USE G TUBE. TUBE FEEDINGS RESTARTED, NO RESIDUAL NOTED.
[2021-11-04] MEDS: POLYETHYLENE GLYCOL 17 GM/PKT GT SCH (09:03)
[2021-11-04] MEDS: VENLAFAXINE 37.5 MG TAB GT SCH (09:04)
[2021-11-04] MEDS: PANTOPRAZOLE 40 MG INJ VIAL IVP SCH (09:04)
[2021-11-04] MEDS: FOAM DRESSING TP SCH (09:04)
--- NOTE | 2021-11-04 10:29 | NUR ---
11/04/21 RD FOLLOW UP COMPLETED PLEASE REFER TO NUTRITION ASSESSMENT UNDER CARE ACTIVITY FOR ESTIMATED NUTRITIONAL NEEDS. 1. CONTINUE VITAL AF 1.2 @ 60 ML/HR TOLERATED -FWF: 150 ML Q6H OR PER MD -WILL PROVIDE 1728 KCAL AND 108 GM PROTEIN, MEETING 87% ESTIMATED KCAL AND 100% ESTIMATED PROTEIN NEEDS; ADEQUATE 2. MONITOR NUTRITION-RELATED LAB VALUES AND GASTRIC RESIDUALS 3. RD TO FOLLOW-UP 2-3 DAYS, HIGH RISK AMANDA HUFF RD
[2021-11-04] MEDS: POTASSIUM CHLORIDE 10 MEQ TABER PO PRN (11:10)
--- NOTE | 2021-11-04 11:30 | NUR ---
PATIENT FIO2 35, SPO2 95% AT REST, NO SIGNS OF DISTRESS. CLEANED AND REPOSITIONED PATIENT, PT HAD LARGE LIQUID BM. PHOTOS OF MOISTURE ASSOCIATED DERMATITIS ON BILATERAL BUTTOCKS TAKEN. APPLIED BARRIER CREAM. SUPRAPUBIC CATHETER WITH ULCER, WOUND CHANGE DONE PER WOUND CARE ORDERS.
[2021-11-04 12:45] VITALS: BP 110/71
[2021-11-04] MEDS: GAUZE TP SCH (13:03)
--- NOTE | 2021-11-04 15:00 | NUR ---
CALLED [facility] AND GAVE REPORT TO MARKEL ROSAS.
--- NOTE | 2021-11-04 15:46 | NUR ---
NOTIFIED SISTER, GURDEEP OF PATIENT'S TRANSFER TO [facility]. VERBALIZED UNDERSTANDING AND WILL NOTIFY FATHER, SARAH RESENDIZ.
[2021-11-04 16:00] VITALS: BP 125/71
--- NOTE | 2021-11-04 18:17 | NUR ---
GAVE REPORT TO [facility].
== END 2021-11-04 18:30 | DRG 870 ==
LOC: MED 14:18 → MTU 17:45
PROVIDERS: ADMIT Hospitalist; ATTEND Hospitalist
PROC: 5A1955Z Respiratory Ventilation, Greater than 96 Consecutive Hours (ICD-10-PCS; principal; 2021-10-24)
PROC: 05HY33Z Insertion of Infusion Device into Upper Vein, Percutaneous Approach (ICD-10-PCS; 2021-10-27)
PROC: B54MZZA Ultrasonography of Right Upper Extremity Veins, Guidance (ICD-10-PCS; 2021-10-27)
PROC: 0B21XFZ Change Tracheostomy Device in Trachea, External Approach (ICD-10-PCS; 2021-11-03)
DX: A41.9 Sepsis, unspecified organism (principal); J69.0 Pneumonitis due to inhalation of food and vomit; J96.20 Acute and chronic respiratory failure, unspecified whether with hypoxia or hypercapnia; E43 Unspecified severe protein-calorie malnutrition; K56.609 Unspecified intestinal obstruction, unspecified as to partial versus complete obstruction; Z99.11 Dependence on respirator [ventilator] status; E87.0 Hyperosmolality and hypernatremia; J95.851 Ventilator associated pneumonia; Z93.0 Tracheostomy status; D64.9 Anemia, unspecified; E66.9 Obesity, unspecified; I51.7 Cardiomegaly; Z20.822 Contact with and (suspected) exposure to COVID-19; N20.0 Calculus of kidney; K56.41 Fecal impaction; E87.6 Hypokalemia; F79 Unspecified intellectual disabilities; R13.10 Dysphagia, unspecified; Z95.0 Presence of cardiac pacemaker; Z93.3 Colostomy status; Z93.1 Gastrostomy status; Z87.442 Personal history of urinary calculi; Z68.33 Body mass index [BMI] 33.0-33.9, adult
CPT/HCPCS: 36415; 71045; 74018; 74250; 76770; 76870; 80048; 80053; 80202; 80305; 81003; 82150; 82436; 82570; 83036; 83690; 83735; 83880; 84100; 84132; 84300; 84436; 84439; 84443; 84479; 84484; 85025; 85610; 85730; 87040; 87070; 87081; 87205; 89220; 94003; 94640; 96374; 96375; 99285; C9113; J1940; J2270; J2405; J2543; J3370; J3480; J7060; Q0092

== ENCOUNTER 2021-11-09 17:25 | Inpatient (IN) | payer OTHER ==
[~2021-11-09] VITALS: Ht 175.3 cm; Wt 124.7 kg
[~2021-11-09 17:25] MED LIST: ACET-1182 GT; AMIO100T3 GT; BISA-213 RC; DEXT15DR6 OP; DOCU-299 GT; HEPA500056 SQ; LEVO137C2 GT; LYR75 GT; MAGN400S60 GT; METH-1550 GT; MIRABULK GT; NA P133E RC; ROB1 GT; SCOP0.333 TP; [UNRECOGNIZED DRUG - CODE] GT
--- NOTE | 2021-11-09 17:25 | NUR ---
1712-PT BIBA VIA GURNEY TO BED 01. RT AT BEDSIDE.
[2021-11-09 17:30] VITALS: BP 151/92
[2021-11-09] MEDS ORDERED: NACL 0.9% 1,000 ML IV ONE (17:35)
--- NOTE | 2021-11-09 17:39 | NUR ---
RT AT PT BEDSIDE
--- NOTE | 2021-11-09 17:39 | NUR ---
LAB AT PT BEDSIDE
--- NOTE | 2021-11-09 17:43 | NUR ---
URINE COLLECTED AND HANDED TO LAB
[2021-11-09 17:52] LABS: BASOPHILS # (AUTO) 0.1 K/uL (0.00-0.22); BASOPHILS % (AUTO) 0.6 % (0.0-2.0); EOSINOPHILS # (AUTO) 0.4 K/uL (0-0.4); EOSINOPHILS % (AUTO) 2.7 % (0.0-4.0); HEMATOCRIT 34.7 % (36-52); HEMOGLOBIN 11.2 g/dL (12.0-18.0); LYMPHOCYTES # (AUTO) 0.9 K/uL (2.0-11.5); LYMPHOCYTES % (AUTO) 6.2 % (20.5-51.1); MEAN CORPUSCULAR HEMOGLOBIN 28 pg (27-31); MEAN CORPUSCULAR HGB CONC 32 g/dL (33-37); MEAN CORPUSCULAR VOLUME 86.3 fL (80-94); MONOCYTES % (AUTO) 6.7 % (1.7-9.3); NEUTROPHILS # (AUTO) 12.5 K/uL (1.8-7.7); NEUTROPHILS % (AUTO) 83.8 % (42.2-75.2); PLATELET COUNT (AUTO) 170 K/uL (140-450); RED BLOOD CELL COUNT(AUTO) 4.03 MIL/uL (4.20-6.10); RED CELL DISTRIBUTION WIDTH 15.7 % (11.6-13.7); WHITE BLOOD COUNT (AUTO) 14.9 K/uL (4.8-10.8)
[2021-11-09 17:56] LABS: BILIRUBIN,URINE NEGATIVE (NEGATIVE); BLOOD, URINE 3+ (NEGATIVE); COLOR,URINE YELLOW (YELLOW); LEUKOCYTE ESTERASE ,URINE TRACE (NEGATIVE); NITRITE, URINE NEGATIVE (NEGATIVE); UGLUCOSE NEGATIVE (NEGATIVE)
[2021-11-09 18:01] LABS: APPEARANCE,URINE HAZY (CLEAR)
[2021-11-09 18:08] LABS: ALBUMIN 2.5 g/dL (3.4-5.0); CARBON DIOXIDE 25.6 mmol/L (21-32); CREATININE 0.6 mg/dL (0.6-1.3); POTASSIUM 3.6 mmol/L (3.5-5.1); TOTAL BILIRUBIN 0.4 mg/dL (0.0-1.0)
[2021-11-09 18:20] LABS: RBC,URINE >100 /HPF (0-5)
--- NOTE | 2021-11-09 18:54 | NUR ---
XR AT PT BEDSIDE
[2021-11-09 19:15] VITALS: BP 122/73
--- NOTE | 2021-11-09 19:20 | NUR ---
Pt report given to MARKEL HENRY. Transfer of care at this time.
--- NOTE | 2021-11-09 19:45 | NUR ---
SHANA/LISA COLLECTED AND WALKED TO LAB
--- NOTE | 2021-11-09 19:55 | NUR ---
PT DESAT TO 88%, RT NOTIFIED. PT'S FiO2 RAISED FROM 40% TO 50%. PT PULSOX IS NOW AT 94%
--- NOTE | 2021-11-09 19:57 | NUR ---
UNABLE TO VERIFY PICC PLACEMENT BY XRAY. ORDERED IV INSTEAD.
[2021-11-09] MEDS ORDERED: ACETAMINOPHEN 650 MG/20.3 ML UDC GT ONE (20:00)
[2021-11-09] MEDS ORDERED: PIPERACILLIN/TAZOBACTAM 3.375 GM in DEXTROSE 5% 50 ML IV ONE (20:00)
--- NOTE | 2021-11-09 20:03 | NUR ---
PT HAS TEMP OF 101.1, COOLING MEASURES INITIATED.
[2021-11-09] MEDS ORDERED: PIPERACILLIN/TAZOBACTAM 3.375 GM VIAL IV ONE (20:14)
--- NOTE | 2021-11-09 20:24 | NUR ---
1914 PATIENT TAKEN TO CAT SCAN BEING BAGGED WITH 100% FIO2. PATIENT PLACED BACK ON VENT WITH SAME SETTINGS
--- NOTE | 2021-11-09 21:20 | NUR ---
Patient will be admitted to care of DR MCKENZIE. Admited to TELE. Will go to room 125B. Belongings list completed. Report to MARKEL DAVIS.
--- NOTE | 2021-11-09 22:00 | NUR ---
RECEIVED PT FROM ER NEW ADMIT TO RM 125B. VIA viVoodRNEY. PT ON TRACH TO VENT: FIO2-50%, PEEP-5, TV-500, RATE-14. PT IS NONVERBAL BUT AWAKE CONSCIOUS. RU7A PICC LINE CLOGGED NOT WORKING. LAC IV 22G INFUSING NS WIDE OPEN. ADMIT VITAL SIGNS: BP-116/77, P-101, RR-14, T-98.9,[id number]%. MRSA SWAB OBTAINED. ALL SAFETY MEASURES IN PLACE. WILL CONTINUE TO MONITOR.
[2021-11-09] MEDS ORDERED: POTASSIUM CHLORIDE 10 MEQ TABER PO PRN (22:45)
[2021-11-09] MEDS ORDERED: ONDANSETRON 4 MG/2 ML VIAL IM/IVP PRN (22:45)
[2021-11-09] MEDS ORDERED: HYDROcodone/APAP 7.5/325 MG 1 TAB PO PRN (22:45)
[2021-11-09] MEDS ORDERED: ZOLPIDEM 5 MG TAB PO PRN (22:45)
[2021-11-09] MEDS ORDERED: guaiFENesin DM 200/20 MG-10 ML 10 ML UDC PO PRN (22:45)
[2021-11-09] MEDS ORDERED: DOCUSATE SODIUM 100 MG GELCAP PO PRN (22:45)
[2021-11-09] MEDS ORDERED: bisacodyL 10 MG SUPP RC SCH (22:50)
[2021-11-09] MEDS: DEXT 5% /NACL 0.9% 1,000 ML IV SCH (23:12)
[2021-11-09 23:21] LABS: AMYLASE 85 U/L (25-115); HDL CHOLESTEROL 29 mg/dL (40-60); LDL (CALC) 94 mg/dL (60-100); MAGNESIUM 2.2 mg/dL (1.8-2.4); PHOSPHORUS 3.6 mg/dL (2.5-4.9); THYROID STIMULATING HORMONE 14.31 uIU/mL (0.34-3.74); TRIGLYCERIDES 109 mg/dL (30-150)
[2021-11-09 23:55] LABS: PROTHROMBIN TIME 10.4 secs (10.8-13.4)
[2021-11-10] VITALS: BP 170/89
--- NOTE | 2021-11-10 02:00 | NUR ---
FREQ ROUNDS.CHECKED PT STABLE AND ASLEEP IN BED. RR EVEN AND UNLABORED WITH EQUAL CHEST RISE. VOIDED 250CC BROWN URINE. ALL SAFETY MEASURES IN PLACE. BED IN LOW AND LOCKED POSITION. CALL LIGHT WITHIN REACH. WILL CONTINUE TO MONITOR.
[2021-11-10] MEDS: PIPERACILLIN/TAZOBACTAM 3.375 GM in DEXTROSE 5% 50 ML IV SCH ×3 (04:15→20:38)
[2021-11-10 06:18] LABS: CARBON DIOXIDE 28.7 mmol/L (21-32); CREATININE 0.5 mg/dL (0.6-1.3)
--- NOTE | 2021-11-10 06:30 | NUR ---
PT NPO X MEDS.NO BM BUT 1300CCCLEAR JIMBO URINE FROM SUPRAPUBIC CATHETER. PT IS NONVERBAL. RECEIVED CRITICAL K2.7 LAB VALUE FROM KENYA . TEXTED DR. MCKENZIE WHO RESPONDED TO GIVE KDUR 40MEQ TABS PLUS AN ADDITIONAL K RIDER OF 40MEQ'S. K DUR GIVEN . K RIDER ORDER PUT IN BUT NOT VERIFIED AT O7O5. ENDORSED K RIDER TO DAY SHIFT TO GIVE AND FOLLOW UP. PT'S SKIN IS REDDENED AND PICC LINE REMAINS CLOGGED. ALL SAFETY MEASURES IN PLACE. CONTINUE TO MONITOR.
[2021-11-10 06:31] LABS: BASOPHILS % (AUTO) 0.2 % (0.0-2.0); EOSINOPHILS # (AUTO) 0.4 K/uL (0-0.4); EOSINOPHILS % (AUTO) 4.4 % (0.0-4.0); HEMATOCRIT 33.5 % (36-52); HEMOGLOBIN 11.1 g/dL (12.0-18.0); LYMPHOCYTES # (AUTO) 1.4 K/uL (2.0-11.5); LYMPHOCYTES % (AUTO) 15.1 % (20.5-51.1); MEAN CORPUSCULAR HEMOGLOBIN 29 pg (27-31); MEAN CORPUSCULAR HGB CONC 33 g/dL (33-37); MEAN CORPUSCULAR VOLUME 85.8 fL (80-94); MONOCYTES # (AUTO) 0.8 K/uL (0.8-1.0); MONOCYTES % (AUTO) 8.8 % (1.7-9.3); NEUTROPHILS # (AUTO) 6.7 K/uL (1.8-7.7); NEUTROPHILS % (AUTO) 71.5 % (42.2-75.2); PLATELET COUNT (AUTO) 152 K/uL (140-450); RED CELL DISTRIBUTION WIDTH 15.3 % (11.6-13.7); WHITE BLOOD COUNT (AUTO) 9.4 K/uL (4.8-10.8)
[2021-11-10 06:33] LABS: POTASSIUM 2.7 mmol/L (3.5-5.1)
[2021-11-10] MEDS ORDERED: KCL 20 MEQ/WATER INJ PREMIX 200 ML IV ONE (07:39)
--- NOTE | 2021-11-10 07:40 | NUR ---
RECEIVED PT FROM NIGHT RN, PT IS ON A TRACH TO VENT AT FIO2 AT 505, RATE IS 14, TV IS 500 AND PEEP IS 5, SATURATING AT 99%, IV LINE NOTED ON THE LAC G. 22 WITH IVF D5 NS AT 100ML/HR, PT HAS A G-TUBE IN PLACE, INTACT, BAL CATHETER NOTED, DRAINING 200ML, NO SIGN OF DISTRESS NOTED AND WILL CONTINUE TO MONITOR PT.
--- NOTE | 2021-11-10 07:57 | NUR ---
PATIENT HAS BEEN SCREENED AND CATEGORIZED HIGH NUTRITION RISK. PATIENT WILL BE SEEN WITHIN 1-2 DAYS OF ADMISSION. RECEIVED REFERRAL FOR TUBE FEEDING AMANDA HUFF RD
[2021-11-10 08:00] VITALS: BP 139/100
[2021-11-10] MEDS ORDERED: PANTOPRAZOLE 40 MG TABEC PO SCH (09:00)
[2021-11-10] MEDS ORDERED: LEVOTHYROXINE SODIUM 137 MCG GT/PO SCH (09:00)
[2021-11-10] MEDS ORDERED: VENLAFAXINE HCL 100 MG GT/PO SCH (09:00)
[2021-11-10] MEDS ORDERED: NON-FORMULARY ITEM (Amiodarone HCl (Amiodarone Hcl) 200 MG) GT/PO SCH (09:00)
[2021-11-10] MEDS ORDERED: AMIODARONE 200 MG TAB GT SCH (09:09)
[2021-11-10] MEDS ORDERED: LEVOTHYROXINE 0.025 MG, LEVOTHYROXINE 0.112 MG GT SCH ×2 (09:15)
[2021-11-10] MEDS ORDERED: LEVOTHYROXINE 0.025 MG, LEVOTHYROXINE 0.112 MG PO SCH ×2 (09:15)
[2021-11-10] MEDS ORDERED: VENLAFAXINE XR 75 MG CAPER PO SCH (09:15)
[2021-11-10] MEDS ORDERED: VENLAFAXINE 37.5 MG TAB GT SCH (09:21)
[2021-11-10] MEDS: DEXT 5% /NACL 0.9% 1,000 ML IV SCH ×3 (09:59→22:59)
[2021-11-10] MEDS: POLYETHYLENE GLYCOL 17 GM/PKT GT SCH (10:05)
[2021-11-10] MEDS ORDERED: POTASSIUM CHLORIDE 40 MEQ, LIDOCAINE MPF 1% 25 MG in NACL 0.9% 250 ML IV ONE (10:30)
--- NOTE | 2021-11-10 10:44 | NUR ---
PT WAS CLEANED AND REPOSITIONED NOW.
[2021-11-10 12:00] VITALS: BP 144/98
--- NOTE | 2021-11-10 15:54 | NUR ---
11/10/21 RD INITIAL ASSESSMENT COMPLETED. PLEASE REFER TO NUTRITION ASSESSMENT UNDER CARE ACTIVITY FOR ESTIMATED NUTRITIONAL NEEDS. 1. IF/WHEN MEDICALLY APPROPRIATE, RECOMMEND OSMOLITE 1.5 WITH GOAL RATE OF 60ML/HR STARTING AT 20ML/HR AND INCREASING BY 20 ML Q4H PT TOLERATES AND GOAL RATE OF 60ML/HR REACHED WITH FWF 200ML Q6H. -WILL PROVIDE 1728 KCAL AND 90G PROTEIN MEETING 95% OF ESTIMATED CALORIE AND 100% OF PROTEIN NEEDS. 2. RD TO FOLLOW-UP 2-3 DAYS, HIGH RISK JOSE KENNEDY RD
[2021-11-10 16:00] VITALS: BP 154/119
--- NOTE | 2021-11-10 19:15 | NUR ---
RECEIVED PATIENT AWAKE NON VERBAL, TRACH TO VENT SATING AT 93%. NO S/S OF RESPIRATORY DISTRESS. BREATHING EVEN UNLABORED. SKIN WARM AND DRY TO THE TOUCH. IVF D5 NS INFUSING AT 100 ML/HR ON THE LEFT FOREARM. BAL CATHETER DRAINING WELL. ALL SAFETY PRECAUTIONS ARE IN PLACE. CALL LIGHT WITHIN EASY REACH. WILL CONTINUE TO MONITOR PT.
--- NOTE | 2021-11-10 19:28 | NUR ---
endorsed pt to night rn for continuity of care, pt is stable at this time.
[2021-11-10 20:00] VITALS: BP 146/102
--- NOTE | 2021-11-10 20:00 | NUR ---
RECEIVED PT ON ACVC 500, RR14, +5, 50% FIO2. ALL ALARMS ARE SET AND AUDIBLE, VENT IS LOCKED AND PLUGGED INTO RED OUTLET, AMBU BAG AT BEDSIDE. PT RESTING COMFORTABLY.
--- NOTE | 2021-11-10 20:38 | NUR ---
ADMINISTERED SCHEDULED MEDICATIONS ORDERED.
--- NOTE | 2021-11-10 23:30 | NUR ---
PATIENT CLEANED, CHANGED AND REPOSITIONED.
[2021-11-11] VITALS: BP 103/68
--- NOTE | 2021-11-11 02:25 | NUR ---
MADE ROUNDS, PATIENT IS SLEEPING. CHEST RISE AND FALL SYMMETRICALLY. NO SOB NOTED. PT STABLE.
[2021-11-11 04:00] VITALS: BP 141/105
[2021-11-11] MEDS: PIPERACILLIN/TAZOBACTAM 3.375 GM in DEXTROSE 5% 50 ML IV SCH ×3 (04:44→21:08)
[2021-11-11] MEDS: DEXT 5% /NACL 0.9% 1,000 ML IV SCH ×3 (04:45→21:17)
[2021-11-11 05:16] LABS: ANION GAP 9.9 (8-16); CARBON DIOXIDE 28.5 mmol/L (21-32); CREATININE 0.4 mg/dL (0.6-1.3); POTASSIUM 3.4 mmol/L (3.5-5.1)
[2021-11-11] MEDS ORDERED: LEVOTHYROXINE 0.025 MG TAB ONE ×2 (05:58→06:06)
[2021-11-11] MEDS ORDERED: LEVOTHYROXINE 0.112 MG TAB ONE (05:59)
[2021-11-11 06:09] LABS: BASOPHILS % (AUTO) 0.4 % (0.0-2.0); EOSINOPHILS # (AUTO) 0.4 K/uL (0-0.4); EOSINOPHILS % (AUTO) 3.9 % (0.0-4.0); HEMATOCRIT 33.6 % (36-52); HEMOGLOBIN 11.1 g/dL (12.0-18.0); LYMPHOCYTES # (AUTO) 0.7 K/uL (2.0-11.5); LYMPHOCYTES % (AUTO) 7.6 % (20.5-51.1); MEAN CORPUSCULAR HEMOGLOBIN 28 pg (27-31); MEAN CORPUSCULAR HGB CONC 33 g/dL (33-37); MEAN CORPUSCULAR VOLUME 85.7 fL (80-94); MONOCYTES # (AUTO) 0.6 K/uL (0.8-1.0); MONOCYTES % (AUTO) 6.6 % (1.7-9.3); NEUTROPHILS % (AUTO) 81.5 % (42.2-75.2); PLATELET COUNT (AUTO) 150 K/uL (140-450); RED BLOOD CELL COUNT(AUTO) 3.92 MIL/uL (4.20-6.10); WHITE BLOOD COUNT (AUTO) 9.8 K/uL (4.8-10.8)
[2021-11-11] MEDS: LEVOTHYROXINE 0.025 MG, LEVOTHYROXINE 0.112 MG GT SCH ×2 (06:10)
--- NOTE | 2021-11-11 07:37 | NUR ---
PATIENT STABLE. ENDORSED TO AM NURSE FOR CONTINUITY OF CARE.
[2021-11-11 08:00] VITALS: BP 151/101
[2021-11-11 08:14] LABS: T4 (THYROXINE) 11.4 ug/dL (4.5-12.0)
[2021-11-11] MEDS ORDERED: VENLAFAXINE XR 75 MG CAPER PO SCH (09:00)
[2021-11-11] MEDS: POLYETHYLENE GLYCOL 17 GM/PKT GT SCH (09:00)
[2021-11-11] MEDS ORDERED: PANTOPRAZOLE 40 MG INJ VIAL IVP SCH (09:08)
--- NOTE | 2021-11-11 09:22 | NUR ---
DC PLANN[age] YRS OLD MALE PATIENT WAS ADMITTED FROM [facility] WITH A DX OF PNEUMONIA AND FEVER. PATIENT HAS A HX OF TACHYCARDIA PACEMAKER ANEMIA, CHRONIC RESP FAILURE TRACH-VENT. PATIENT WAS RECENTLY DC FROM THE HOSPITAL. PATIENT HAS AN ORDER TO TRANSFER TO HIGHER LEVEL OF CARE PER DR WORLEY REQUEST TO [facility]. FAXED ALL PAPER WORK . CM TO FOLLOW. Addendum: 11/11/21 at 1038 by Natalie Browne RN DC PLANNING: PER DR CHIANG CONSULTED WITH DR LONDON FOR SECOND OPINION. CM TO FOLLOW Addendum: 11/12/21 at 1244 by Natalie Browne RN DC PLANNING: PER DR CHIANG'S NOTES SPOKE WITH DR LONDON GENERAL SURGEON WILL TAKE THE CASE AND WILL OPERATE ON Tuesday11/16/21. CALLED [facility], SPOKE WITH PARDEEP NOTIFIED HER THAT TO CANCEL THE HIGHER LEVEL. CM TO FOLLOW Addendum: 11/17/21 at 1425 by Natalie Browne RN DC PLANNING: DIVERTING COLOSTOMY WAS ON HOLD PATIENT IN REQUIRING 70% FIO2. CONSULTED WITH KEI BAZAN TO FOLLOW Addendum: 11/23/21 at 1511 by Natalie Browne RN DC PLANNING: PER DR MICHAEL LONDON IS OUT OF TOWN AND BE BACK ON 11/25 RECOMMENDED PATIENT CAN BE DISCHARGED TO [facility] AND COME BACK OUT PT FOR SURGERY (DIVERTING COLOSTOMY) CALLED PT'S FATHER SPOKE WITH SARAH AND AGREED WITH THE PLAN. CALLED [facility] SPOKE WITH MARLA ACCEPTED PATIENT CAN GO TO [place] . ARRANGED TRANSPORT WITH [facility] CONSTITUTIONAL LAW PROFESSOR TIME 1800. NOTIFIED KAYLA SOLOMON CM TO FOLLOW
[2021-11-11] MEDS: AMIODARONE 200 MG TAB GT SCH (09:35)
[2021-11-11] MEDS: VENLAFAXINE 37.5 MG TAB GT SCH (09:35)
--- NOTE | 2021-11-11 09:36 | NUR ---
SCHEDULED MEDICATIONS DUE GIVEN. HEPARIN NOT GIVEN POSSIBLE COLOSTOMY SURGERY LATER TODAY BY DR. WORLEY AT [facility]. OTHER SCHEDULED MEDICATIONS DUE GIVEN. WILL CONTINUE TO MONITOR.
[2021-11-11 12:00] VITALS: BP 154/110
--- NOTE | 2021-11-11 12:03 | NUR ---
SKIN ASSESSMENT DONE WITH PRIMARY RN, NO OPEN SKIN. PT. ADMITTED WITH THIN HEALED SCAR TISSUE TO SACRALCOCCYX AND BILATERAL ISCHIUM. PT. ADMITTED WITH LOW ROSEANNE SCALE AT HI RISK. RECOMMENDATIONS: -[facility]ES[employer]UEL-CARE Q2H AND PRN IF SOILING, APPLY Z GUARD TO BUTTOCKS BID AND PRN IF SOILING -POSITIONING: TURN AND REPOSITION PATIENT Q 2H OR SOONER USE PILLOWS TO KEEP BONY PROMINENCES FROM DIRECT CONTACT WITH SURFACES USE REPOSITIONING WEDGES TO PROVIDE 30-DEGREE ANGLE FOR SIDE LYING POSITIONS OFFLOADING OR FOAM DRESSING TO ALL TUBING TO PREVENT MEDICAL DEVICES RELATED PRESSURE INJURY -RE-EVALUATING AND MANAGING INCONTINENCE MONITOR SKIN CONDITION DURING POSITION CHANGE DO NOT MASSAGE REDNESS, BONY PROMINENCES FREQUENT JESUS MANUEL-CARE AND PROVIDE BARRIER CREAMS PRN IF SOILING MOISTURE CONTROL BY OFFER BED CAPPS/URINAL /ABSORBENT PAD TO WICK AND HOLD MOISTURE KEEP SKIN DRY AND PROTECT FROM FRICTION -MANAGE FRICTION/SHEAR/MOBILITY KEEP HOB AT THE LOWEST LEVEL OF ELEVATION NO MORE THAN 30 DEGREES UNLESS OTHERWISE CONTRAINDICATED USE LIFT SHEET OR TRANSFER DEVICE TO MOVE PATIENT AND PREVENT LATERAL SHEER. PROTECT HEELS, ELBOWS BONY PROMINENCES WITH SKIN BERRIES OR FOAM DRESSING IF EXPOSED TO FRICTION OFFLOAD BILATERAL HEELS BY PLACING PILLOWS UNDER CALVES AT ALL TIMES, UNLESS OTHERWISE CONTRAINDICATED -PRESSURE REDISTRIBUTION SURFACE THERAPY MANDI ISOFLEX MATTRESS -NUTRITION: PLEASE FOLLOW RD RECOMMENDATIONS AND OFFER NUTRITION SUPPLEMENTS IF ORDERED.
[2021-11-11] MEDS: Z-GUARD PASTE TP SCH (13:48)
--- NOTE | 2021-11-11 13:48 | NUR ---
SCHEDULED MEDICATIONS DUE GIVEN. WILL CONTINUE TO MONITOR.
[2021-11-11 16:00] VITALS: BP 150/108
--- NOTE | 2021-11-11 19:32 | NUR ---
GAVE REPORT TO POLE INCISOR OPERATOR NURSE FOR CONTINUITY OF CARE. PATIENT IN STABLE CONDITION.
--- NOTE | 2021-11-11 19:32 | NUR ---
GAVE REPORT TO COMMERCIAL CENSUS TAKER NURSE FOR CONTINUITY OF CARE. PATIENT IN STABLE CONDITION.
--- NOTE | 2021-11-11 19:40 | NUR ---
RECEIVED PATIENT FROM AM SHIFT NURSE FOR CONTINUITY OF CARE. AWAKE, APHASIC, TRACH TO VENT SATING AT 97%. FI02 50%.NO S/SX OF RESPIRATORY DISTRESS. BREATHING EVEN UNLABORED. SKIN WARM AND DRY AND INTACT. IVF D5-NS INFUSING AT 100 ML/HR ON MIDLINE ON HIS LEFT FOREARM.SUPRAPUBIC CATHETER DRAINING WELL. ALL SAFETY PRECAUTIONS ARE IN PLACE. CALL LIGHT WITHIN REACH. WILL CONTINUE TO MONITOR.
[2021-11-11 20:00] VITALS: BP 145/98
--- NOTE | 2021-11-11 21:30 | NUR ---
SCHEDULED MEDICATIONS GIVEN.PT TOLERATED WELL.WILL CONTINUE TO MONITOR.
--- NOTE | 2021-11-11 23:09 | NUR ---
PT ASLEEP. BREATHING EQUAL AND UNLABORED. NO DISTRESS NOTED. WILL CONTINUE TO MONITOR.
[2021-11-12] VITALS: BP 159/104
[2021-11-12] MEDS: Z-GUARD PASTE TP SCH ×2 (01:00→13:30)
[2021-11-12 04:00] VITALS: BP 150/93
[2021-11-12] MEDS: PIPERACILLIN/TAZOBACTAM 3.375 GM in DEXTROSE 5% 50 ML IV SCH ×3 (04:22→21:05)
--- NOTE | 2021-11-12 05:00 | NUR ---
SCHEDULED MEDICATIONS GIVEN.PT TOLERATED WELL.WILL CONTINUE TO MONITOR.
[2021-11-12] MEDS ORDERED: LEVOTHYROXINE 0.025 MG TAB ONE (05:34)
[2021-11-12] MEDS: LEVOTHYROXINE 0.025 MG, LEVOTHYROXINE 0.112 MG GT SCH ×2 (05:56)
[2021-11-12 06:11] LABS: BASOPHILS % (AUTO) 0.3 % (0.0-2.0); EOSINOPHILS # (AUTO) 0.5 K/uL (0-0.4); EOSINOPHILS % (AUTO) 5.9 % (0.0-4.0); HEMATOCRIT 34.6 % (36-52); HEMOGLOBIN 11.4 g/dL (12.0-18.0); LYMPHOCYTES # (AUTO) 0.7 K/uL (2.0-11.5); LYMPHOCYTES % (AUTO) 9.3 % (20.5-51.1); MEAN CORPUSCULAR HEMOGLOBIN 28 pg (27-31); MEAN CORPUSCULAR HGB CONC 33 g/dL (33-37); MEAN CORPUSCULAR VOLUME 85.8 fL (80-94); MONOCYTES # (AUTO) 0.6 K/uL (0.8-1.0); MONOCYTES % (AUTO) 7.4 % (1.7-9.3); NEUTROPHILS # (AUTO) 5.9 K/uL (1.8-7.7); NEUTROPHILS % (AUTO) 77.1 % (42.2-75.2); PLATELET COUNT (AUTO) 198 K/uL (140-450); RED BLOOD CELL COUNT(AUTO) 4.03 MIL/uL (4.20-6.10); RED CELL DISTRIBUTION WIDTH 15.4 % (11.6-13.7); WHITE BLOOD COUNT (AUTO) 7.7 K/uL (4.8-10.8)
[2021-11-12 06:42] LABS: ANION GAP 11.4 (8-16); CARBON DIOXIDE 30.5 mmol/L (21-32); CREATININE 0.5 mg/dL (0.6-1.3)
[2021-11-12 06:50] LABS: POTASSIUM 2.9 mmol/L (3.5-5.1)
[2021-11-12] MEDS: POTASSIUM CHLORIDE 20% 40 MEQ/15 ML UDC GT PRN ×3 (06:54→18:26)
--- NOTE | 2021-11-12 07:01 | NUR ---
PT IS STABLE. NO ACUTE EVENTS THROUGHOUT THE NIGHT. ALL NEEDS MET.NO S/SX OF DISTRESS NOTED.DENIES PAIN. ALL PRECAUTIONS IN PLACE. CALL LIGHT WITHIN REACH. WILL ENDORSE TO AM SHIFT NURSE.
[2021-11-12] MEDS ORDERED: bisacodyL 10 MG SUPP RC PRN (07:09)
--- NOTE | 2021-11-12 07:12 | NUR ---
RECEIVED ENDORSEMENT FROM PM SHIFT NURSE THAT PATINE REST IN BED, MIDLINE AT MÓNICA IV D5NS INFUSING AT 100ML/HR. PIV LAC 22G SALINE LOCK. WILL CONTINUTE TO MONITOR PATIENT.
[2021-11-12 08:00] VITALS: BP 166/117
[2021-11-12] MEDS: AMIODARONE 200 MG TAB GT SCH (09:00)
[2021-11-12] MEDS: DEXT 5% /NACL 0.9% 1,000 ML IV SCH ×2 (11:08→17:12)
[2021-11-12] MEDS: PANTOPRAZOLE 40 MG INJ VIAL IVP SCH (11:28)
[2021-11-12] MEDS: VENLAFAXINE 37.5 MG TAB GT SCH (11:29)
[2021-11-12] MEDS: POLYETHYLENE GLYCOL 17 GM/PKT GT SCH (11:29)
[2021-11-12 12:00] VITALS: BP 178/128
--- NOTE | 2021-11-12 14:04 | NUR ---
11/12/21 RD FOLLOW UP COMPLETED PLEASE REFER TO NUTRITION ASSESSMENT UNDER CARE ACTIVITY FOR ESTIMATED NUTRITIONAL NEEDS. 1. WHEN/IF MEDICALLY APPROPRIATE, RECOMMEND OSMOLITE 1.5 WITH GOAL RATE OF 60ML/HR -START AT 20ML/HR AND INCREAS BY 20 ML Q4H TOLERATED -FWF: 200ML Q6H OR PER MD -RECOMMEND NEW BID PER RD PROTOCOL; WITH NEW BID, PT WILL RECEIVE 100% OF ESTIMATED NUTRITIONAL NEEDS 2. IF MEDICALLY NOT APPROPRIATE TO START TF, CONSIDER TPN 3. RD TO FOLLOW-UP 2-3 DAYS, HIGH RISK ROMAN HUFF RD Addendum: 11/17/21 at [address] CORRECTION FOR #3 -RD TO FOLLOW-UP 3-5 DAYS, MODERATE RISK D/T SURGERY SCHEDULED
[2021-11-12] MEDS: hydrALAZINE 20 MG/ML VIAL IVP PRN (15:03)
--- NOTE | 2021-11-12 15:46 | NUR ---
DR. CASTILLO ORDERED HYDRALAZINY PRN AFT NURSE REPORT THAT PATIENT'S BP IS 178/128 at 1200
[2021-11-12 16:00] VITALS: BP 135/118
--- NOTE | 2021-11-12 19:37 | NUR ---
ENDORSE PT TO PM SHIFT NURSE THAT PATINE REST IN BED, MIDLINE AT MÓNICA IV D5NS INFUSING AT 100ML/HR. PIV LAC 22G SALINE LOCK
--- NOTE | 2021-11-12 19:45 | NUR ---
RECEIVED PATIENT FROM AM SHIFT NURSE FOR CONTINUITY OF CARE. AWAKE, APHASIC, TRACH TO VENT SATING AT 94%. FI02 50%.NO S/SX OF RESPIRATORY DISTRESS. BREATHING EVEN UNLABORED. SKIN WARM AND DRY AND INTACT. IVF D5-NS INFUSING AT 100 ML/HR ON MIDLINE ON HIS LEFT FOREARM.SUPRAPUBIC CATHETER DRAINING WELL. ALL SAFETY PRECAUTIONS ARE IN PLACE. CALL LIGHT WITHIN REACH. WILL CONTINUE TO MONITOR.
[2021-11-12 20:00] VITALS: BP 145/98
--- NOTE | 2021-11-12 21:00 | NUR ---
SCHEDULED MEDICATIONS GIVEN.PT TOLERATED WELL.WILL CONTINUE TO MONITOR.
--- NOTE | 2021-11-12 23:18 | NUR ---
PT ASLEEP. RT AT BEDSIDE. PT SATING AT 94% ON 50% FI02.BREATHING EQUAL AND UNLABORED. NO DISTRESS NOTED. WILL CONTINUE TO MONITOR.
[2021-11-13] VITALS: BP 150/127
--- NOTE | 2021-11-13 01:00 | NUR ---
PATIENT DESATURATED TO 70'S WHILE BEING CLEANED AND CHANGED. CALLED RT TO BEDSIDE. PT'S O2 WENT BACK UP. RT ON STANDBY WHILE BEING CLEANED AND CHANGED. WILL CONTINUE TO MONITOR.
[2021-11-13] MEDS: Z-GUARD PASTE TP SCH ×2 (01:43→13:59)
--- NOTE | 2021-11-13 03:21 | NUR ---
PT ASLEEP. VISIBLE CHEST RISE AND FALL NOTED. NO DISTRESS NOTED. WILL CONTINUE TO MONITOR.
[2021-11-13 04:00] VITALS: BP 156/116
--- NOTE | 2021-11-13 05:00 | NUR ---
SCHEDULED MEDICATIONS GIVEN. PT TOLERATED WELL. WILL CONTINUE TO MONITOR.
[2021-11-13] MEDS: PIPERACILLIN/TAZOBACTAM 3.375 GM in DEXTROSE 5% 50 ML IV SCH ×3 (05:08→20:31)
[2021-11-13] MEDS: DEXT 5% /NACL 0.9% 1,000 ML IV SCH (05:09)
[2021-11-13 05:17] LABS: ANION GAP 12.2 (8-16); CARBON DIOXIDE 29.1 mmol/L (21-32); CREATININE 0.4 mg/dL (0.6-1.3); POTASSIUM 3.3 mmol/L (3.5-5.1)
[2021-11-13 05:34] LABS: BASOPHILS % (AUTO) 0.2 % (0.0-2.0); EOSINOPHILS # (AUTO) 0.3 K/uL (0-0.4); EOSINOPHILS % (AUTO) 4.1 % (0.0-4.0); HEMATOCRIT 35.5 % (36-52); HEMOGLOBIN 11.7 g/dL (12.0-18.0); LYMPHOCYTES # (AUTO) 0.6 K/uL (2.0-11.5); LYMPHOCYTES % (AUTO) 7.7 % (20.5-51.1); MEAN CORPUSCULAR HEMOGLOBIN 28 pg (27-31); MEAN CORPUSCULAR HGB CONC 33 g/dL (33-37); MEAN CORPUSCULAR VOLUME 85.8 fL (80-94); MONOCYTES # (AUTO) 0.6 K/uL (0.8-1.0); MONOCYTES % (AUTO) 7.4 % (1.7-9.3); NEUTROPHILS # (AUTO) 6.5 K/uL (1.8-7.7); NEUTROPHILS % (AUTO) 80.6 % (42.2-75.2); PLATELET COUNT (AUTO) 229 K/uL (140-450); RED BLOOD CELL COUNT(AUTO) 4.14 MIL/uL (4.20-6.10); RED CELL DISTRIBUTION WIDTH 15.6 % (11.6-13.7); WHITE BLOOD COUNT (AUTO) 8.1 K/uL (4.8-10.8)
[2021-11-13] MEDS ORDERED: LEVOTHYROXINE 0.025 MG TAB ONE (05:55)
[2021-11-13] MEDS ORDERED: LEVOTHYROXINE 0.112 MG TAB ONE (05:56)
[2021-11-13] MEDS: POTASSIUM CHLORIDE 20% 40 MEQ/15 ML UDC GT PRN ×2 (05:59→09:16)
--- NOTE | 2021-11-13 06:00 | NUR ---
POTASSIUM 3.3. 40MEQ KCL GIVEN VIA GTUBE.
--- NOTE | 2021-11-13 06:14 | NUR ---
SCHEDULED MEDICATIONS GIVEN. PT TOLERATED WELL. WILL CONTINUE TO MONITOR.
[2021-11-13] MEDS: LEVOTHYROXINE 0.025 MG, LEVOTHYROXINE 0.112 MG GT SCH ×2 (06:30)
--- NOTE | 2021-11-13 07:30 | NUR ---
RECEIVED PATIENT FROM PROJECT RESERVOIR ENGINEER NURSE FOR CONTINUITY OF CARE. PT IS AOX4, APHASIC. RESPIRATIONS EVEN AND UNLABORED. ON [facility] VENT A/C VC WITH FIO2 55%, VT 500, RATE 12, PEEP 5. SKIN IS WARM, DRY, AND NON-INTACT. HAS DRESSING COVERING SACRUM. WILL ASSESS AND DO DAILY WOUND CARE. IV SITE ON MÓNICA MIDLINE INFUSING FLUIDS ORDERED AND LAC 22 G SALINE LOCKED. HAS SUPRAPUBIC CATH DRAINING CLEAR YELLOW URINE BY GRAVITY. FLACC 0. PLAN OF CARE DISCUSSED. SAFETY PRECAUTIONS IN PLACE. CALL LIGHT WITHIN IN REACH. WILL CONTINUE TO MONITOR.
[2021-11-13 08:00] VITALS: BP 138/99
[2021-11-13] MEDS: PANTOPRAZOLE 40 MG INJ VIAL IVP SCH (09:14)
[2021-11-13] MEDS: VENLAFAXINE 37.5 MG TAB GT SCH (09:16)
[2021-11-13] MEDS: AMIODARONE 200 MG TAB GT SCH (09:16)
[2021-11-13] MEDS: POLYETHYLENE GLYCOL 17 GM/PKT GT SCH (09:17)
[2021-11-13] MEDS: DEXTROSE 5% 1,000 ML IV SCH ×2 (09:22→16:23)
--- NOTE | 2021-11-13 09:30 | NUR ---
ALL SCHEDULED MEDS GIVEN. PT IS STABLE. NO DISTRESS NOTED. WILL CONTINUE TO MONITOR.
--- NOTE | 2021-11-13 11:45 | NUR ---
CHECKED ON PATIENT. PT IS STABLE. NO DISTRESS NOTED. WILL CONTINUE TO MONITOR.
[2021-11-13 12:00] VITALS: BP 134/98
--- NOTE | 2021-11-13 14:00 | NUR ---
ALL SCHEDULED MEDS GIVEN. PT IS STABLE. NO DISTRESS NOTED. WILL CONTINUE TO MONITOR.
[2021-11-13 16:00] VITALS: BP 159/100
--- NOTE | 2021-11-13 17:00 | NUR ---
DC PLANNING PATIENT IS A 26 YEAR OLD MALE ADMITTED IN THE [facility]/ED ON 11/09/2021 DUE TO COMPLAINTS OF ABDOMINAL PAIN,TACHYCARDIA AND FEVER. PATIENT WAS RECENTLY HERE FROM 10/24/2021 TO 11/04/2021 FROM [facility] FOR SIMILAR REASONS. PATIENT IS VENT DEPENDENT WITH MEDICAL HISTORY OF CHRONIC RESPIRATORY FAILURE, ANEMIA, AND PACEMAKER. (MRS. BYRD IS TUNISIAN SPEAKING ONLY) SW MEET WITH PATIENT AND MOTHER RANJAN BYRD AT BEDSIDE TO DISCUSS AND GATHER HIS COLLATERAL INFORMATION. PATIENT WAS TIRED AND SLEEPY AND MOTHER WAS ABLE TO PROVIDE ALL HIS INFORMATION. PER MRS. BYRD PATIENT HAS FAMILY SUPPORT AND ARE VERY INVOLVED ON HIS CARE EVEN THOUGHT PATIENT IS RESIDING IN ()SUB-ACUTE FACILITY. PER MRS. BYRD SHE LIVES ABOUT 40 MINUTES AWAY HOWEVER THEY MANGE TO VISIT PATIENT REGULARLY. PATIENT HAS PARENT'S HIS POA'S AND THEY ARE HIS EMERGENCY CONTACTS AND MEDICAL DECISION MAKERS. PATIENT HAS NO ISSUES WITH MEDICATIOS AND HIS DME IS PROVIDED AT [facility]. PER MRS. BYRD PATIENT AND FAMILY ARE VERY SATISFIED WITH THE CARE PATIENT IS GETTING AT [facility] AND HE WILL BE RETURNING TO [facility] WHEN HE IS DC FROM [facility]. SW OFFER RESOURCES TO MRS. BYRD AND SHE WAS APPRECIATIVE. SW WILL FOLLOW UP NEEDED.
--- NOTE | 2021-11-13 17:30 | NUR ---
CHECKED ON PATIENT. PT IS STABLE. NO DISTRESS NOTED. WILL CONTINUE TO MONITOR.
--- NOTE | 2021-11-13 19:30 | NUR ---
RECEIVED REPORT FROM RN DAYSHIFT NURSE, HE IS LYING IN BED AOX2 HE IS APHASIAC AND TRACH TO VENT WITH FI02 AT 40%. PT HAS RIGHT UPPER ARM MIDLINE RUNNING D5 AT 125 AND 22G ON THE LEFT AC. PT HAS GENERALIZED PITTING EDEMA PLUS 2 AND HAS FOOT DROP WITH HEEL PROTECTORS ON. PT HAS G TUBE WHICH IS LOCKED AND A SUPRA PUBIC BAL CATHETER IN PLACE DRAINING LIGHT YELLOW URINE.
--- NOTE | 2021-11-13 19:30 | NUR ---
ENDORSED TO LENDING ADVISOR NURSE FOR CONTINUITY OF CARE. PT IS STABLE.
[2021-11-13 20:00] VITALS: BP 177/130
[2021-11-13] MEDS: hydrALAZINE 20 MG/ML VIAL IVP PRN (20:22)
--- NOTE | 2021-11-13 21:00 | NUR ---
PT WAS TURNED, CHANGED AND REPOSITIONED IN BED ORAL CARE PROVIDED. ZOSYN HUNG AND RUNNING ORDERED. PT WAS GIVEN ORDERED HEPARIN SQ EDUCATION REGARDING MEDICATIONS PROVIDED AT BEDSIDE. PT UNABLE TO VERBALIZE UNDERSTANDING PT PRIMARY BLOOD PRESSURE AT 1999 WAS 177/130, PT GIVEN IVP HYDRALAZINE ORDERED. RETAKE IS 152/98. WILL CONTINUE TO MONITOR B/P. ALL ORDERED PRECAUTIONS IN PLACE.
[2021-11-14] VITALS: BP 150/108
[2021-11-14] MEDS: DEXTROSE 5% 1,000 ML IV SCH ×4 (00:20→22:15)
--- NOTE | 2021-11-14 00:30 | NUR ---
PT WAS TURNED AND REPOSITIONED IN BED. PT ALSO SUCTION ED AND ORAL CARE PROVIDED. MIDNIGHT B/P IS 150/108. ALL ORDERED PRECAUTIONS IN PLACE.
[2021-11-14] MEDS: Z-GUARD PASTE TP SCH ×2 (03:37→13:07)
[2021-11-14 04:00] VITALS: BP 93/51
[2021-11-14] MEDS ORDERED: LEVOTHYROXINE 0.025 MG TAB ONE (05:53)
[2021-11-14] MEDS ORDERED: LEVOTHYROXINE 0.112 MG TAB ONE (05:54)
--- NOTE | 2021-11-14 06:00 | NUR ---
PT WAS TURNED CLEANED AND REPOSITIONED IN BED. HE HAD A TOTAL OF 2 VERY LOOSE BM. ZOSYN HUNG AND RUNNING ORDERED. ORAL CARE PROVIDED.
[2021-11-14] MEDS: PIPERACILLIN/TAZOBACTAM 3.375 GM in DEXTROSE 5% 50 ML IV SCH ×2 (06:05→13:07)
[2021-11-14] MEDS: LEVOTHYROXINE 0.025 MG, LEVOTHYROXINE 0.112 MG GT SCH ×2 (06:06)
--- NOTE | 2021-11-14 06:30 | NUR ---
SYNTHROID GIVEN VIA G TUBE WHICH WAS FLUSHED PATENT. EDUCATION REGARDING MEDICATION S GIVEN AT BEDSIDE, PT UNABLE TO VERBALIZE UNDERSTANDING.
--- NOTE | 2021-11-14 07:30 | NUR ---
RECEIVED REPORT FROM NICKEL PLANT OPERATOR NURSE. NO S/S OF DISTRESS. BREATHING SYMMETRICAL. CALL LIGHT WITHIN REACH. ALL SAFETY MEASURES IN PLACE. TRACH TO VENT. PROCEDURE FOR DIVERTED COLOSTOMY SCHEDULED FOR 11/16
[2021-11-14 07:39] LABS: CARBON DIOXIDE 29.2 mmol/L (21-32); CREATININE 0.5 mg/dL (0.6-1.3); POTASSIUM 3.2 mmol/L (3.5-5.1)
[2021-11-14 07:42] LABS: BASOPHILS % (AUTO) 0.3 % (0.0-2.0); EOSINOPHILS # (AUTO) 0.3 K/uL (0-0.4); EOSINOPHILS % (AUTO) 4.8 % (0.0-4.0); HEMATOCRIT 35.6 % (36-52); HEMOGLOBIN 11.7 g/dL (12.0-18.0); LYMPHOCYTES # (AUTO) 0.5 K/uL (2.0-11.5); LYMPHOCYTES % (AUTO) 7.4 % (20.5-51.1); MEAN CORPUSCULAR HEMOGLOBIN 28 pg (27-31); MEAN CORPUSCULAR HGB CONC 33 g/dL (33-37); MEAN CORPUSCULAR VOLUME 85.4 fL (80-94); MONOCYTES # (AUTO) 0.5 K/uL (0.8-1.0); MONOCYTES % (AUTO) 7.2 % (1.7-9.3); NEUTROPHILS # (AUTO) 5.5 K/uL (1.8-7.7); PLATELET COUNT (AUTO) 238 K/uL (140-450); RED BLOOD CELL COUNT(AUTO) 4.17 MIL/uL (4.20-6.10); RED CELL DISTRIBUTION WIDTH 15.9 % (11.6-13.7); WHITE BLOOD COUNT (AUTO) 6.9 K/uL (4.8-10.8)
[2021-11-14 08:00] VITALS: BP 153/114
[2021-11-14 08:16] LABS: NEUTROPHILS % (AUTO) 80.3 % (42.2-75.2)
[2021-11-14] MEDS: POLYETHYLENE GLYCOL 17 GM/PKT GT SCH (09:29)
[2021-11-14] MEDS: PANTOPRAZOLE 40 MG INJ VIAL IVP SCH (09:29)
[2021-11-14] MEDS: VENLAFAXINE 37.5 MG TAB GT SCH (09:29)
[2021-11-14] MEDS: POTASSIUM CHLORIDE 20% 40 MEQ/15 ML UDC GT PRN (09:29)
[2021-11-14] MEDS: AMIODARONE 200 MG TAB GT SCH (09:29)
--- NOTE | 2021-11-14 10:29 | NUR ---
RESIDUAL 0. NO S/S OF DISTRESS. BREATHING SYMMETRICAL. PT RESTING, EYES CLOSED. ALL SAFETY MEASURES IN PLACE.
--- NOTE | 2021-11-14 10:38 | NUR ---
Vent check completed. Pt suctioned, thick yellow secretions. Airway patent and secure. Pt does not display any respiratory distress. Will continue to monitor.
[2021-11-14] MEDS ORDERED: MORPHINE SULFATE 2 MG/ML SYR IVP PRN (11:35)
[2021-11-14 12:00] VITALS: BP 114/76
--- NOTE | 2021-11-14 13:08 | NUR ---
PT CLEANED AND CHANGED. MODERATE BM. NO S/S OF DISTRESS. FAMILY AT BEDSIDE. CALL LIGHT IN REACH. ALL SAFETY MEASURES IN PLACE
--- NOTE | 2021-11-14 14:48 | NUR ---
Upon entering, Pt desat to 86% and was given supplement o2. Pt walker and HME changed. Pt suctioned with moderate thick yellow secretions present. Pt saturation after interventions was brought back to <94%. Pt did not display any respiratory distress. Will continue to monitor.
[2021-11-14 16:00] VITALS: BP 102/48
--- NOTE | 2021-11-14 19:23 | NUR ---
ENDORSED PT TO MATERIAL MOVER NURSE
--- NOTE | 2021-11-14 19:24 | NUR ---
RECEIVED PATIENT WITH MORNING NURSE. PATIENT IS APHASIC, HAS PACEMAKER, G-TUBE IN PLACED, IS ON TRACHEOSTOMY VENTILATOR AND LAO SPEAKING. PATIENT HAS IV OF D5 125ML/HR, INFUSING IN RIGHT UPPER ARM, HAS SUPRAPUBIC CATHETER WITH CLEAR YELLOW URINE. ALL SAFETY PRECAUTION ARE IN PLACE, CALL LIGHT WITHIN REACH. WILL CONTINUE TO MONITOR.
[2021-11-14 20:00] VITALS: BP 119/67
--- NOTE | 2021-11-14 21:58 | NUR ---
ADMINISTERED SCHEDULED MEDICATION ORDERED.
--- NOTE | 2021-11-14 22:05 | NUR ---
UPON ARRIVAL PT DESATING PT WAS Sx AND PROVIDED O2 BOOST SM THICK YELLOW OBTAINED AND SPO2 SARAHY > 90% PT APPEARS TO BE COMFORTABLE AT THIS TIME W/ NO DISTRESS WILL CONTINUE TO MONITOR
[2021-11-15] VITALS: BP 111/71
[2021-11-15] MEDS: DEXTROSE 5% 1,000 ML IV SCH ×3 (00:20→16:43)
[2021-11-15] MEDS: Z-GUARD PASTE TP SCH ×2 (01:00→13:01)
--- NOTE | 2021-11-15 02:03 | NUR ---
PATIENT CLEANED, CHANGED AND REPOSITIONED. PT WITH EPISODE OF DESATURATION 87%, SUCTIONED PRN. WENT UP TO 94%. WILL CONTINUE TO MONITOR.
[2021-11-15 04:00] VITALS: BP 134/107
[2021-11-15] MEDS ORDERED: LEVOTHYROXINE 0.025 MG TAB ONE (06:34)
[2021-11-15] MEDS ORDERED: LEVOTHYROXINE 0.112 MG TAB ONE (06:34)
[2021-11-15] MEDS: LEVOTHYROXINE 0.025 MG, LEVOTHYROXINE 0.112 MG GT SCH ×2 (06:37)
--- NOTE | 2021-11-15 07:30 | NUR ---
RECEIVED PATIENT FROM TALENT ASSOCIATE NURSE. PT IS AOX1, APHASIC. RESPIRATIONS EVEN AND UNLABORED. ON [facility] VENT A/C VC WITH FIO2 40%, VT 500, RATE 14, PEEP 5. SKIN IS WARM, DRY, AND NON-INTACT. IV SITE ON MÓNICA MIDLINE INFUSING FLUIDS ORDERED AND LAC 22 G SALINE LOCKED. HAS SUPRAPUBIC CATH DRAINING CLEAR YELLOW URINE BY GRAVITY. FLACC 0. PLAN OF CARE DISCUSSED. SAFETY PRECAUTIONS IN PLACE. CALL LIGHT WITHIN IN REACH. WILL CONTINUE TO MONITOR.
--- NOTE | 2021-11-15 07:31 | NUR ---
ENDORSED PATIENT TO AM NURSE FOR CONTINUITY OF CARE. PT STABLE
[2021-11-15 08:00] VITALS: BP 141/102
[2021-11-15 08:02] LABS: ANION GAP 11.1 (8-16); CARBON DIOXIDE 27.9 mmol/L (21-32); CREATININE 0.4 mg/dL (0.6-1.3)
[2021-11-15 08:03] LABS: MAGNESIUM 1.9 mg/dL (1.8-2.4); PHOSPHORUS 3.6 mg/dL (2.5-4.9)
[2021-11-15] MEDS: POTASSIUM CHLORIDE 20% 40 MEQ/15 ML UDC GT SCH ×2 (09:00→09:16)
[2021-11-15] MEDS ORDERED: POTASSIUM CHLORIDE 10 MEQ TABER PO SCH (09:00)
[2021-11-15] MEDS: PANTOPRAZOLE 40 MG INJ VIAL IVP SCH (09:16)
[2021-11-15] MEDS: POLYETHYLENE GLYCOL 17 GM/PKT GT SCH (09:16)
[2021-11-15] MEDS: VENLAFAXINE 37.5 MG TAB GT SCH (09:16)
[2021-11-15] MEDS: AMIODARONE 200 MG TAB GT SCH (09:16)
--- NOTE | 2021-11-15 09:30 | NUR ---
DUE MEDS GIVEN. TOLERATED WELL
[2021-11-15 12:00] VITALS: BP 175/122
[2021-11-15] MEDS: POLYVINYL ALCOHOL 1.4% OP 15 ML SOL OP PRN ×3 (12:00→23:19)
--- NOTE | 2021-11-15 12:00 | NUR ---
ARTIFICIAL TEARS GIVEN FOR EYE DRYNESS AND IRRITATION
[2021-11-15] MEDS: hydrALAZINE 20 MG/ML VIAL IVP PRN (12:51)
--- NOTE | 2021-11-15 14:20 | NUR ---
JESUS MANUEL CARE DONE, TURNED AND REPOSITIONED, NO BM
[2021-11-15 16:00] VITALS: BP 146/96
--- NOTE | 2021-11-15 16:30 | NUR ---
PT RESTING IN BED, NO APPARENT DISTRESS FLACC 0, ORAL CARE DONE
[2021-11-15 17:33] LABS: BASOPHILS % (AUTO) 0.7 % (0.0-2.0); EOSINOPHILS # (AUTO) 0.2 K/uL (0-0.4); EOSINOPHILS % (AUTO) 3.6 % (0.0-4.0); HEMATOCRIT 37.8 % (36-52); HEMOGLOBIN 12.5 g/dL (12.0-18.0); LYMPHOCYTES # (AUTO) 0.9 K/uL (2.0-11.5); LYMPHOCYTES % (AUTO) 12.9 % (20.5-51.1); MEAN CORPUSCULAR HEMOGLOBIN 28 pg (27-31); MEAN CORPUSCULAR HGB CONC 33 g/dL (33-37); MEAN CORPUSCULAR VOLUME 85.2 fL (80-94); MONOCYTES # (AUTO) 0.5 K/uL (0.8-1.0); MONOCYTES % (AUTO) 7.5 % (1.7-9.3); NEUTROPHILS % (AUTO) 75.3 % (42.2-75.2); PLATELET COUNT (AUTO) 260 K/uL (140-450); RED BLOOD CELL COUNT(AUTO) 4.44 MIL/uL (4.20-6.10); WHITE BLOOD COUNT (AUTO) 6.7 K/uL (4.8-10.8)
[2021-11-15] MEDS: KCL 20 MEQ/WATER INJ PREMIX 200 ML IV SCH ×4 (18:27→23:18)
--- NOTE | 2021-11-15 18:36 | NUR ---
PT AWAKE NO RESPIRATORY DISTRESS, FLACC 0
--- NOTE | 2021-11-15 19:30 | NUR ---
RECEIVED BEDSIDE REPORT FROM DAY SHIFT RN FOR CONTINUITY OF CARE. PT IS SLEEPING COMFORTABLY IN BED. PT IS TRACH TO VENT: FIO2 50%, VT 500, RT 14, PEEP 5. PT SATING 96%. PT IS NOT IN ANY ACUTE DISTRESS. PT HAS SUPRAPUBIC CATH DRAINING CLEAR YELLOW URINE. PT HAS MÓNICA MIDLINE WITH D5 125 ML/HR. PT IS CURRENTLY RECEIVING IV POTASSIUM 20 MEQ AND NEEDS 3 MORE BAGS. BED AT THE LOWEST POSITION. HEAD OF BED RAISED. ALL SAFETY MEASURES TAKEN. WILL CONTINUE TO MONITOR THE PT.
[2021-11-15 20:00] VITALS: BP 139/92
--- NOTE | 2021-11-15 20:55 | NUR ---
ALL DUE MEDS GIVEN. NO ADVERSE REACTION NOTED. WILL CONTINUE TO MONITOR THE PT.
[2021-11-16] VITALS (17 sets, daily range): BP systolic 97–145; BP diastolic 54–92
[2021-11-16] MEDS: DEXTROSE 5% 1,000 ML IV SCH ×3 (00:20→17:24)
--- NOTE | 2021-11-16 00:45 | NUR ---
PT IS AWAKE. PT WANTED SUCTION. SUCTION PROVIDED AND ORAL CARE. NO FURTHER COMPLAINS FROM THE PT. PT 02 SAT IS 95%. WILL CONTINUE TO MONITOR THE PT.
[2021-11-16] MEDS: Z-GUARD PASTE TP SCH ×2 (01:26→13:00)
--- NOTE | 2021-11-16 02:50 | NUR ---
PT IS SLEEPING COMFORTABLY IN BED. PT IS NOT IN ANY DISTRESS. IVF RUNNING PER MD ORDER. BREATHING EVEN AND UNLABORED. PT 02 SAT 94%. CALL LIGHT WITHIN REACH. ALL SAFETY MEASURES TAKEN. WILL CONTINUE TO MONITOR THE PT.
--- NOTE | 2021-11-16 05:16 | NUR ---
PT HAD A BM. PT WAS CLEANED AND CHANGED. PT IS IS SATING WELL AFTER CHANGE AT 94%. WILL CONTINUE TO MONITOR THE PT.
--- NOTE | 2021-11-16 06:05 | NUR ---
PT O2 SATURATION STARTED TO GO DOWN AFTER 15 MINUTES WHEN WE CHANGED THE PT. RT WAS CALLED. THEY TRIED TO WORK ON THE PT 02 BUT WAS UNABLE TO BRING THE 02 SATURATIONS BACK UP. RAPID RESPONSE WAS CALLED. PT 02 SATURATION WERE STILL TRENDING DOWN. AND BLOOD PRESSURE WAS LOW TOO AT 72/46. THERE WAS A POINT WHERE HIS OXYGEN LEVEL AND BLOOD PRESSURE WERE IN GOOD CONDITION WITH 02 SATURATION AT 100%, BUT SHORTLY AFTER IT WENT DOWN AGAIN. DR. UGALDE WAS NOTIFIED. DR. UGALDE ORDER PT TO BE TRANSFER TO ICU. HE ALSO ORDERED CBC, BMP, LACTIC ACID, ABG, TROPONINS, CXR AND TO START LEVOPHED TOO IF MAP LESS THAN 60.
[2021-11-16 06:15] LABS: ANION GAP 10.2 (8-16); CARBON DIOXIDE 30.3 mmol/L (21-32); CREATININE 0.5 mg/dL (0.6-1.3); POTASSIUM 4.5 mmol/L (3.5-5.1)
[2021-11-16 06:22] LABS: HEMOGLOBIN 13.7 g/dL (12.0-18.0); MEAN CORPUSCULAR VOLUME 86.6 fL (80-94); WHITE BLOOD COUNT (AUTO) 11.5 K/uL (4.8-10.8)
[2021-11-16 06:25] LABS: MEAN CORPUSCULAR HEMOGLOBIN 28 pg (27-31); MEAN CORPUSCULAR HGB CONC 33 g/dL (33-37); PLATELET COUNT (AUTO) 406 K/uL (140-450); RED BLOOD CELL COUNT(AUTO) 4.85 MIL/uL (4.20-6.10); RED CELL DISTRIBUTION WIDTH 16.7 % (11.6-13.7)
[2021-11-16] MEDS: LEVOTHYROXINE 0.025 MG, LEVOTHYROXINE 0.112 MG GT SCH ×2 (06:30)
[2021-11-16] MEDS ORDERED: NOREPINEPHRINE 4 MG in DEXTROSE 5% 250 ML IV PRN (06:40)
[2021-11-16 06:51] LABS: PHOSPHORUS 4.2 mg/dL (2.5-4.9)
--- NOTE | 2021-11-16 07:00 | NUR ---
PT TRANSFERRED TO ICU BED 6 AT 0700.REPORT RECEIVED FROM CLOTH BEAMER. PT IS TRACH TO VENTILATOR WITH VITAL SIGNS STABLE. PATIENT ALERT AND NONVERBAL; COMMUNICATES VIA BLINKING EYES. PT IN NO ACUTE DISTRESS AT THIS TIME. FAMILY UPDATED ON PATIENTS CHANGE OF LOCATION.
--- NOTE | 2021-11-16 07:23 | NUR ---
RECEIVED A CALL FROM RN AT 0525 REGARDING PT'S LOW O2 SATS. UNABLE TO MAINTAIN GOOD SATURATIONS. TROUBLESHOOTING WAS DONE AND PT STILL WASN'T MAINTAINING GOOD SATURATIONS. BAGGED PT TO ICU AND PLACED IN BED 6. ABG TO FOLLOW.
[2021-11-16] MEDS ORDERED: CARBOXYMETHYLCELLULOSE 1% OP PRN (08:40)
[2021-11-16] MEDS: VENLAFAXINE 37.5 MG TAB GT SCH (09:00)
[2021-11-16] MEDS ORDERED: ALBUTEROL SULFATE/IPRATROPIU 3 ML SOL IH PRN (10:10)
--- NOTE | 2021-11-16 10:20 | NUR ---
RECEIVED ON A LogentriesSCAPE R860 VENTILATOR PLUGGED INTO RED OUTLET TOLERATING WELL WITHOUT ADVERSE REACTIONS NOTED TO A SHILEY XLT #7 AIRWAY SECURED WITH A HAYLEY TRACH TIE CUFF PRESSURE CHECKED NOTED AMBU BAG AT BEDSIDE AWAKE AND RESPONSIVE GOOD CHEST RISE DEEP TRACHEAL SUCTION FOR LARGE THICK YELLOW SECRETIONS SATURATION 98% ON FIO2 OF 100% PEEP 8cmH2O POST HHN THERAPY TITRATED FIO2 TO 90% TANO/CULLET CRUSHER NOTIFIED
[2021-11-16] MEDS: AMIODARONE 200 MG TAB GT SCH (10:36)
[2021-11-16] MEDS: POTASSIUM CHLORIDE 20% 40 MEQ/15 ML UDC GT SCH (10:36)
[2021-11-16] MEDS: POLYETHYLENE GLYCOL 17 GM/PKT GT SCH (10:37)
[2021-11-16] MEDS: PANTOPRAZOLE 40 MG INJ VIAL IVP SCH (10:37)
--- NOTE | 2021-11-16 10:45 | NUR ---
MORNING MEDICATIONS UNAVAILABLE AT TIME DUE. PHARMACIST CONTACTED; CURRENTLY AWAITING DELIVERY OF MEDICATIONS FROM PHARMACY TO ICU.
[2021-11-16 13:40] LABS: EOSINOPHILS % (MANUAL) 1 % (0-4); LYMPHOCYTES % (MANUAL) 10 % (20-46); MONOCYTES % (MANUAL) 10 % (5-12)
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
--- NOTE | 2021-11-16 17:14 | NUR ---
RESTING COMFORTABLY GOOD CHEST RISE DEEP TRACHEAL SUCTION FOR LARGE THIN YELLOW SECRETIONS AIRWAY PATENT SATURATION 97% ON FIO2 OF 90% PEEP [id number] POST HHN THERAPY TITRATED FIO2 TO 80% TANO/SANDIP ART SALES CONSULTANT NOTIFIED WAY INSPECTOR TO MONITOR AND TITRATE FIO2 TOLERATED
[2021-11-16] MEDS: ALBUTEROL SULFATE/IPRATROPIU 3 ML SOL IH SCH (19:00)
--- NOTE | 2021-11-16 19:45 | NUR ---
RECEIVED PATIENT FROM AM SHIFT NURSE FOR CONTINUITY OF CARE. AWAKE, NON VERBAL, TRACH TO VENT SATING AT 96%.SETTINGS AC/VC FI02 80% TIDAL VOLUME 500 RATE 14 PEEP 10.VITALS BP 101/55, HR -80, R- 14, T- 97.1.NO S/SX OF RESPIRATORY DISTRESS. BREATHING EVEN UNLABORED. SKIN WARM AND DRY AND INTACT. IVF D5 INFUSING AT 100 ML/HR ON MIDLINE ON HIS MÓNICA.SUPRAPUBIC CATHETER DRAINING CLEAR YELLOW COLORED URINE. ALL SAFETY PRECAUTIONS ARE IN PLACE.WILL CONTINUE TO MONITOR.
--- NOTE | 2021-11-16 20:05 | NUR ---
PT IS STABLE.VITALS FOLLOWS. BP 123/69, R 14, SD 82, O2 94%. NO S/SX OF RESPIRATORY DISTRESS OF THE MOMENT. ALL PRECAUTIONS IN PLACE. WILL CONTINUE TO MONITOR.
--- NOTE | 2021-11-16 21:00 | NUR ---
SCHEDULED MEDICATIONS GIVEN. PT TOLERATED WELL. NO DISTRESS NOTED. WILL CONTINUE TO MONITOR.
--- NOTE | 2021-11-16 21:35 | NUR ---
SPOKE TO , AND I WAS TOLD THAT THEY HAVE TO CANCEL SURGERY TOMORROW PATIENT'S FIO2 STILL AT 80%.
[2021-11-17] VITALS (9 sets, daily range): BP systolic 92–144; BP diastolic 57–78
[2021-11-17] MEDS: DEXTROSE 5% 1,000 ML IV SCH (00:20)
[2021-11-17] MEDS: Z-GUARD PASTE TP SCH ×2 (01:00→12:19)
--- NOTE | 2021-11-17 01:05 | NUR ---
PT TRANSPORTED FROM ICU 4 TO 124 W/ NO ADVERSE EVENTS PT TOLERATED TRANSPORT WELL VENT PLUGGED INTO RED OUTLET W/ ALARMS ON AND AUDIBLE AMBU W/ PEEP VALVE PLACED AT BEDSIDE NO CHANGES TO VENT AT THIS TIME WILL CONTINUE TO MONITOR
[2021-11-17] MEDS: ALBUTEROL SULFATE/IPRATROPIU 3 ML SOL IH SCH ×4 (01:17→23:43)
--- NOTE | 2021-11-17 01:30 | NUR ---
PT TRANSFERRED FROM ICU TO TELE BED 124.PT IS STABLE, TRACH TO VENT AC/VC FIO2 80%, PEEP 10, VT 500, R 14. BP 92/62, RR 14, AR 108, T 97.8, O2 SAT AT 96%.FLACC 0, ALL PRECAUTIONS IN PLACE. WILL CONTINUE TO MONITOR.
--- NOTE | 2021-11-17 02:54 | NUR ---
FIO2 TITRATED TO 70% PT TOLERATING WELL AT THIS TIME SPO2 94% 10 MIN POST TITRATION WILL CONTINUE TO MONITOR AND TITRATE TOLERATED
--- NOTE | 2021-11-17 05:38 | NUR ---
FIO2 TITRATED TO 60% PREV AND TOLERATED WELL FIO2 AND PEEP TITRATED ONCE MORE AND TOLERATING WELL PEEP TITRATED TO 8 AND FIO2 IS CURRENTLY AT 70% W/ SPO2 97% 10 MIN POST TITRATION WILL CONTINUE TO MONITOR AND TITRATE TOLERATED
[2021-11-17] MEDS ORDERED: LEVOTHYROXINE 0.112 MG TAB ONE (05:46)
[2021-11-17] MEDS ORDERED: LEVOTHYROXINE 0.025 MG TAB ONE (05:46)
[2021-11-17] MEDS: LEVOTHYROXINE 0.025 MG, LEVOTHYROXINE 0.112 MG GT SCH ×2 (06:17)
--- NOTE | 2021-11-17 06:21 | NUR ---
SCHEDULED MEDICATIONS GIVEN. PT TOLERATED WELL. NO DISTRESS NOTED. WILL CONTINUE TO MONITOR.
--- NOTE | 2021-11-17 07:23 | NUR ---
PT IS STABLE. ENDORSED TO AM SHIFT NURSE FOR CONTINUITY OF CARE.
--- NOTE | 2021-11-17 07:30 | NUR ---
RECEIVED PATIENT FROM AUTOMOTIVE PARTS COUNTER PERSON NURSE. PT IS AOX1, APHASIC. RESPIRATIONS EVEN AND UNLABORED. ON [facility] VENT A/C VC WITH FIO2 70%, VT 500, RATE 118, PEEP 8. SKIN IS WARM, DRY, AND INTACT WITH SACRAL REDNESS. IV SITE ON MÓNICA MIDLINE INFUSING FLUIDS ORDERED AND LAC 22 G SALINE LOCKED. HAS SUPRAPUBIC CATH DRAINING CLEAR YELLOW URINE BY GRAVITY. FLACC 0. PLAN OF CARE DISCUSSED. SAFETY PRECAUTIONS IN PLACE. CALL LIGHT WITHIN IN REACH. WILL CONTINUE TO MONITOR.
--- NOTE | 2021-11-17 07:58 | NUR ---
RECEIVED ON A [employer]SCAPE R860 VENTILATOR PLUGGED INTO RED OUTLET TOLERATING WELL WITHOUT ADVERSE REACTIONS NOTED TO A SHILEY XLT #8 AIRWAY SECURED WITH A HAYLEY TRACH TIE CUFF PRESSURE CHECKED NOTED AMBU BAG AT BEDSIDE GOOD CHEST RISE DEEP TRACHEAL SUCTION FOR LARGE THIN "WATERY PALE YELLOW SECRETIONS AIRWAY PATENT
[2021-11-17] MEDS: VENLAFAXINE 37.5 MG TAB GT SCH (09:18)
[2021-11-17] MEDS: POTASSIUM CHLORIDE 20% 40 MEQ/15 ML UDC GT SCH (09:18)
[2021-11-17] MEDS: PANTOPRAZOLE 40 MG INJ VIAL IVP SCH (09:18)
[2021-11-17] MEDS: AMIODARONE 200 MG TAB GT SCH (09:18)
[2021-11-17] MEDS: POLYETHYLENE GLYCOL 17 GM/PKT GT SCH (09:18)
--- NOTE | 2021-11-17 09:30 | NUR ---
DUE MEDS GIVEN VIA GT, TOLERATED WELL. ORAL CARE DONE
[2021-11-17] MEDS: DEXT 5% / NACL 0.45% 1,000 ML IV SCH ×2 (09:55→20:41)
--- NOTE | 2021-11-17 12:20 | NUR ---
PT RESTING IN BED, NO APPARENT DISTRESS FLACC 0
--- NOTE | 2021-11-17 12:35 | NUR ---
11/17/21 RD FOLLOW UP COMPLETED PLEASE REFER TO NUTRITION ASSESSMENT UNDER CARE ACTIVITY FOR ESTIMATED NUTRITIONAL NEEDS. 1. WHEN/IF MEDICALLY APPROPRIATE, RECOMMEND OSMOLITE 1.5 WITH GOAL RATE OF 60ML/HR -START AT 20ML/HR AND INCREAS BY 20 ML Q4H TOLERATED -FWF: 200ML Q6H OR PER MD -RECOMMEND NEW BID PER RD PROTOCOL; WITH NEW BID, PT WILL RECEIVE 100% OF ESTIMATED NUTRITIONAL NEEDS 2. IF MEDICALLY NOT APPROPRIATE TO START TF, CONSIDER TPN 3. RD TO FOLLOW-UP 2-3 DAYS, HIGH RISK AMANDA HUFF RD
--- NOTE | 2021-11-17 15:10 | NUR ---
WOUND CARE, BAL CARE AND JESUS MANUEL CARE DONE. TURNED AND REPOSITIONED
--- NOTE | 2021-11-17 17:30 | NUR ---
PT RESTING IN BED, NO APPARENT DISTRESS FLACC 0, ORAL CARE DONE
--- NOTE | 2021-11-17 19:30 | NUR ---
RECEIVED PATIENT FROM AM SHIFT NURSE FOR CONTINUITY OF CARE. AWAKE, NON VERBAL, TRACH TO VENT SATING AT 95%.SETTINGS AC/VC FI02 50% TIDAL VOLUME 500 RATE 14 PEEP 8.NO S/SX OF RESPIRATORY DISTRESS. BREATHING EVEN UNLABORED. SKIN WARM AND DRY AND INTACT. IVF D51/2NS INFUSING AT 100 ML/HR ON MIDLINE ON HIS MÓNICA.SUPRAPUBIC CATHETER DRAINING CLEAR YELLOW COLORED URINE. ALL SAFETY PRECAUTIONS ARE IN PLACE.WILL CONTINUE TO MONITOR.
[2021-11-17] MEDS: ACETAMINOPHEN 325 MG TAB PO PRN (21:36)
--- NOTE | 2021-11-17 21:45 | NUR ---
SCHEDULED MEDICATIONS GIVEN. PT TOLERATED WELL. NO DISTRESS NOTED. WILL CONTINUE TO MONITOR.PT FEBRILE, COOLING MEASURES APPLIED. WILL GIVE TYLENOL PRN.ALL PRECAUTIONS IN PLACE. WILL CONTINUE TO MONITOR.
--- NOTE | 2021-11-17 23:32 | NUR ---
PT PEEP AND FIO2 HAVE BEEN DECREASED TO 35% AND +6 AND PT IS TOLERATING THE CHANGES WELL. PT SATURATION HAS MAINTAINED AROUND 94%. WILL MONITOR RESIDENT FOR ANY ADVERSE REACTIONS.
[2021-11-18] VITALS (9 sets, daily range): BP systolic 103–155; BP diastolic 58–105
--- NOTE | 2021-11-18 | NUR ---
PT ASLEEP ON BED. PT FEBRILE AT 100.5, PRN TYLENOL NOT DUE YET. COOLING MEASURES IN PLACE.
[2021-11-18] MEDS: ALBUTEROL SULFATE/IPRATROPIU 3 ML SOL IH SCH ×7 (01:35→23:00)
[2021-11-18] MEDS: Z-GUARD PASTE TP SCH ×2 (01:40→11:43)
[2021-11-18] MEDS: ACETAMINOPHEN 325 MG TAB PO PRN ×3 (03:46→22:45)
[2021-11-18] MEDS ORDERED: LEVOTHYROXINE 0.025 MG TAB ONE (05:47)
[2021-11-18] MEDS ORDERED: LEVOTHYROXINE 0.112 MG TAB ONE (05:48)
[2021-11-18] MEDS: DEXT 5% / NACL 0.45% 1,000 ML IV SCH ×2 (06:09→15:50)
[2021-11-18] MEDS: LEVOTHYROXINE 0.025 MG, LEVOTHYROXINE 0.112 MG GT SCH ×2 (06:10)
--- NOTE | 2021-11-18 07:18 | NUR ---
RECEIVED ON A Shobutt BabiesAPE R860 VENTILATOR PLUGGED INTO RED OUTLET TOLERATING WELL WITHOUT ADVERSE REACTIONS NOTED TO A SHILEY XLT #8 AIRWAY CUFF PRESSURE CHECKED NOTED AMBU BAG AT BEDSIDE RESTING WELL EQUAL CHEST RISE DEEP TRACHEAL SUCTION FOR COPIOUS THIN "WATERY" YELLOW SECRETIONS AIRWAY PATENT Addendum: 11/18/21 at 0917 by Jules Madera RT REVIEWED BLOOD PRESSURE DECREASED PEEP TO 5cmH2O BEAR (SUE)/RN NOTIFIED
--- NOTE | 2021-11-18 07:38 | NUR ---
ABG PUNCTURE ATTEMPTED X 3 UNABLE TO OBTAIN ZERO PULSES BOOK SEWER TO ATTEMPT AT A LATER TIME
--- NOTE | 2021-11-18 07:38 | NUR ---
PT IS STABLE. ENDORSED TO AM SHIFT NURSE FOR CONTINUITY OF CARE.
--- NOTE | 2021-11-18 08:00 | NUR ---
RECEIVED REPORT FROM NIGHTSRIFT RN. PT AWAKE AND ALERT. HOB ELEVATED. TRACH TO VENT. FIO2 CHANGED TO 35%, PEEP 5. 02 @ 96%. GTUBE DRESSING C/D/I. SUPRAPUBIC CATHETER VIA GRAVITY IN BAL BAG. IVF INFUSING ON MÓNICA MIDLINE. NEEDS ALL MET AT THIS TIME. SAFETY MEASURES IN PLACE. WILL CONTINUE TO MONITOR CLOSELY.
[2021-11-18] MEDS ORDERED: AMIKACIN PER PHARMACY MC PRN (08:50)
[2021-11-18] MEDS: POTASSIUM CHLORIDE 20% 40 MEQ/15 ML UDC GT SCH (09:29)
[2021-11-18] MEDS: POLYETHYLENE GLYCOL 17 GM/PKT GT SCH (09:29)
[2021-11-18] MEDS: VENLAFAXINE 37.5 MG TAB GT SCH (09:29)
[2021-11-18] MEDS: PANTOPRAZOLE 40 MG INJ VIAL IVP SCH (09:29)
[2021-11-18] MEDS: AMIODARONE 200 MG TAB GT SCH (09:30)
--- NOTE | 2021-11-18 10:48 | NUR ---
ON OR ABOUT THIS TIME ABG PUNCTURE ATTEMPTED X 4 UNABLE TO OBTAIN ZERO PULSES
--- NOTE | 2021-11-18 10:53 | NUR ---
ON OO ABOUT THIS TIME DR. LORRI BARRIGA AT BEDSIDE VORBO: DO NOT ATTEMPT ANYMORE ABG'S; SATISFIED WITH CURRENT PULSE OXIMETER READING OF 96% Addendum: 11/18/21 at 1110 by Jules Madera RT OO = OR
[2021-11-18 11:33] LABS: ANION GAP 9.9 (8-16); CARBON DIOXIDE 27.9 mmol/L (21-32); CREATININE 0.9 mg/dL (0.6-1.3); POTASSIUM 4.8 mmol/L (3.5-5.1)
--- NOTE | 2021-11-18 11:35 | NUR ---
STABLE GOOD CHEST RISE DEEP TRACHEAL SUCTION FOR LARGE THIN "WATERY" YELLOW SECRETIONS AIRWAY PATENT
[2021-11-18] MEDS: AMIKACIN 450 MG in DEXTROSE 5% 100 ML IV SCH (11:43)
[2021-11-18 12:01] LABS: BASOPHILS % (AUTO) 0.3 % (0.0-2.0); EOSINOPHILS # (AUTO) 0.1 K/uL (0-0.4); EOSINOPHILS % (AUTO) 1.9 % (0.0-4.0); HEMATOCRIT 36.5 % (36-52); HEMOGLOBIN 11.9 g/dL (12.0-18.0); LYMPHOCYTES # (AUTO) 1.3 K/uL (2.0-11.5); LYMPHOCYTES % (AUTO) 20.3 % (20.5-51.1); MEAN CORPUSCULAR HEMOGLOBIN 28 pg (27-31); MEAN CORPUSCULAR HGB CONC 33 g/dL (33-37); MONOCYTES # (AUTO) 0.8 K/uL (0.8-1.0); MONOCYTES % (AUTO) 12.7 % (1.7-9.3); NEUTROPHILS # (AUTO) 4.1 K/uL (1.8-7.7); NEUTROPHILS % (AUTO) 64.8 % (42.2-75.2); PLATELET COUNT (AUTO) 270 K/uL (140-450); RED BLOOD CELL COUNT(AUTO) 4.25 MIL/uL (4.20-6.10); WHITE BLOOD COUNT (AUTO) 6.4 K/uL (4.8-10.8)
--- NOTE | 2021-11-18 13:15 | NUR ---
PRN TYELENOL GIVEN.
--- NOTE | 2021-11-18 13:52 | NUR ---
NO APPARENT DISTRESS NOTED GOOD CHEST RISE DEEP TRACHEAL SUCTION FOR LARGE THIN "WATERY" SECRETIONS AIRWAY PATENT
--- NOTE | 2021-11-18 16:01 | NUR ---
PT CHANGED AND REPOSITIONED. PT DESATED TO 84%. RT CALLED TO ASSIST. PT AT 91%. HOB ELEVATED. COMFORTABLY RESTING AT THIS TIME.
--- NOTE | 2021-11-18 19:02 | NUR ---
PT RESTING COMFORTABLY. HOB ELEVATED. TRACH TO VENT. PT IN NO DISTRESS. WILL ENDORSE POC TO NIGHTSHIFT.
--- NOTE | 2021-11-18 19:33 | NUR ---
REPORT GIVEN TO KHALIF JEAN BAPTISTE, CARMEN FOR CONTINUITY OF CARE.
--- NOTE | 2021-11-18 19:56 | NUR ---
GET THE REPORT FROM MORNING NURSE IRLANDA , PATIENT IS LYING ON BED, PATIENT VENT TO TRACH, CALL LIGHT IS WITHIN THE REACH,WILL CONTINUE TO MONITOR PATIENT.
--- NOTE | 2021-11-18 21:00 | NUR ---
PATIENT IS LYING ON BED, VITAL SIGN IS WITHIN THE NORMAL RANGE, ALL SCHEDULE MEDICATION IS GIVEN PER DOCTOR ORDER, CALL LIGHT IS WITHIN THE REACH, WILL CONTINUE TO MONITOR PATIENT.
--- NOTE | 2021-11-18 22:47 | NUR ---
PATIENT HAS FEVER 101.3 , TYLENOL 650 MG PO PRN IS GIVEN PER DOCTOR ORDER, WILL REASSESS TEMPERATURE IN HOUR , CALL LIGHT IS WITHIN THE REACH, WILL CONTINUE TO MONITOR PATIENT.
[2021-11-19] VITALS: BP 119/65
[2021-11-19] MEDS: Z-GUARD PASTE TP SCH ×2 (01:07→13:08)
--- NOTE | 2021-11-19 01:12 | NUR ---
PATIENT IS LYING ON BED, NO ANY DISTRESS NOTED AT THIS TIME, VITAL SIGN IS WITHIN THE NORMAL RANGE, CALL LIGHT IS WITHIN THE REACH, WILL CONTINUE TO MONITOR PATIENT.
[2021-11-19] MEDS: DEXT 5% / NACL 0.45% 1,000 ML IV SCH ×2 (02:25→13:07)
[2021-11-19] MEDS: ALBUTEROL SULFATE/IPRATROPIU 3 ML SOL IH SCH ×6 (03:00→22:20)
[2021-11-19 04:00] VITALS: BP 125/77
--- NOTE | 2021-11-19 04:41 | NUR ---
PATIENT IS LYING ON BED, NO ANY DISTRESS NOTED AT THIS TIME, PATIENT TEMPERATURE IS 101.0 F, WILL MONITOR PATIENT , ALL OTHER VITAL SIGN IS WITHIN THE NORMAL RANGE, CALL LIGHT IS WITHIN THE REACH,WILL CONTINUE TO MONITOR PATIENT.
[2021-11-19] MEDS: ACETAMINOPHEN 325 MG TAB PO PRN ×2 (05:06→23:43)
--- NOTE | 2021-11-19 05:06 | NUR ---
PATIENT TEMPERATURE 101.0 F, MEDICATED WITH TYLENOL 650 MG PO PRN PER DOCTOR ORDER, WILL REASSESS TEMPERATURE IN HOUR, CALL LIGHT IS WITHIN THE REACH,WILL CONTINUE TO MONITOR PATIENT.
[2021-11-19] MEDS ORDERED: LEVOTHYROXINE 0.025 MG TAB ONE (06:23)
[2021-11-19] MEDS ORDERED: LEVOTHYROXINE 0.112 MG TAB ONE (06:23)
[2021-11-19] MEDS: LEVOTHYROXINE 0.025 MG, LEVOTHYROXINE 0.112 MG GT SCH ×2 (06:32)
[2021-11-19 08:00] VITALS: BP 108/58
--- NOTE | 2021-11-19 08:05 | NUR ---
GAVE REPORT TO MORNING NURSE STEPHON FOR CONTINUOS OF CARE, PATIENT IS STABLE.
--- NOTE | 2021-11-19 08:06 | NUR ---
GAVE REPORT TO MORNING NURSE FOR CONTINUOS OF CARE, PATIENT IS STABLE.
--- NOTE | 2021-11-19 08:07 | NUR ---
RECEIVED PT FROM NIGHT RN, PT IS ON A TRACH TO VENT AT FIO2 AT 355, VT AT 500, RATE AT 14 AND FLOW RATE AT 45, SAFETY AND FALL PRECAUTION ENFORCED, PT HAS A MÓNICA MIDLINE DOUBLE LUMEN WITH D5 1/2 NS INFUSING AT 100ML/HR, INTACT, SUPRAPUBIC CATHETER IN PLACE, O2 SATURATION AT 97%, NO SIGN OF DISTRESS NOTED AND WILL CONTINUE TO MONITOR PT.
[2021-11-19] MEDS: POTASSIUM CHLORIDE 20% 40 MEQ/15 ML UDC GT SCH (10:15)
[2021-11-19] MEDS: AMIODARONE 200 MG TAB GT SCH (10:17)
[2021-11-19] MEDS: POLYETHYLENE GLYCOL 17 GM/PKT GT SCH (10:17)
[2021-11-19] MEDS: VENLAFAXINE 37.5 MG TAB GT SCH (10:18)
[2021-11-19] MEDS: PANTOPRAZOLE 40 MG INJ VIAL IVP SCH (10:19)
[2021-11-19] MEDS ORDERED: FUROSEMIDE 40 MG/4 ML VIAL IVP SCH (11:30)
[2021-11-19] MEDS: AMIKACIN 450 MG in DEXTROSE 5% 100 ML IV SCH (11:59)
[2021-11-19 12:00] VITALS: BP 148/85
--- NOTE | 2021-11-19 12:01 | NUR ---
DR. ZAMARRIPA AND RT ARE ON THE BED SIDE NOW TALKING TO SISTER, PT IS BEING SUCTIONED.
[2021-11-19 16:00] VITALS: BP 108/76
--- NOTE | 2021-11-19 19:20 | NUR ---
RECEIVED REPORT FROM AM NURSE. PATIENT IS APHASIC WELL RESTED, TRACH TO VENT SETTING FIO2 AT 40% RATE 14, PEEP 5. NO S/S OF RESPIRATORY DISTRESS. RESPIRATION EVEN UNLABORED. IVF D5 1/2 NS INFUSING ON THE RIGHT UPPER ARM MIDLINE. G-TUBE INTACT. SUPRA PUBIC CATHETER IN PLACE DRAINING CLEAR YELLOW URINE. ALL SAFETY PRECAUTIONS ARE IN PLACE. CALL LIGHT WITHIN REACH. FLACC 0. WILL CONTINUE TO MONITOR PT.
--- NOTE | 2021-11-19 19:35 | NUR ---
ENDORSED PT TO NIGHT RN FOR CONTINUITY OF CARE, PT IS STABLE AT THIS TIME.
[2021-11-19 20:00] VITALS: BP 124/81
--- NOTE | 2021-11-19 22:10 | NUR ---
ADMINISTERED SCHEDULED MEDICATION ORDERED.
--- NOTE | 2021-11-19 23:43 | NUR ---
PATIENT HAS FEVER, MEDICATED AND COOLING MEASURES GIVEN.
[2021-11-20] VITALS (7 sets, daily range): BP systolic 98–132; BP diastolic 65–88
--- NOTE | 2021-11-20 01:05 | NUR ---
V/S MONITORED, PT STILL FEBRILE. CONTINUOS COOLING MEASURES DONE.
[2021-11-20] MEDS: Z-GUARD PASTE TP SCH ×2 (01:22→11:58)
--- NOTE | 2021-11-20 02:15 | NUR ---
PT IS CLEAN , TURNED AND REPOSITIONED.
[2021-11-20] MEDS: ALBUTEROL SULFATE/IPRATROPIU 3 ML SOL IH SCH ×6 (02:20→21:00)
[2021-11-20] MEDS: DEXT 5% / NACL 0.45% 1,000 ML IV SCH ×2 (05:08→22:01)
--- NOTE | 2021-11-20 07:30 | NUR ---
BEDSIDE ENDORSEMENT GIVEN TO AM NURSE FOR CONTINUITY OF CARE. LATEST TEMP. WAS 99.4
--- NOTE | 2021-11-20 08:00 | NUR ---
RECEIVED REPORT FROM HAM RN. PT NONVERBAL. HOB ELEVATED. TRACH TO VENT. FIO2 40%, PEEP 5, RR 18. 02 @ 100%. GTUBE DRESSING C/D/I. SUPRAPUBIC CATHETER VIA GRAVITY IN BAL BAG. IVF INFUSING ON MÓNICA MIDLINE. NEEDS ALL MET AT THIS TIME. SAFETY MEASURES IN PLACE. WILL CONTINUE TO MONITOR CLOSELY.
[2021-11-20] MEDS ORDERED: LEVOTHYROXINE 0.025 MG TAB ONE (08:27)
[2021-11-20] MEDS ORDERED: LEVOTHYROXINE 0.112 MG TAB ONE (08:27)
[2021-11-20] MEDS: LEVOTHYROXINE 0.025 MG, LEVOTHYROXINE 0.112 MG GT SCH ×2 (08:27)
[2021-11-20] MEDS: POTASSIUM CHLORIDE 20% 40 MEQ/15 ML UDC GT SCH (09:00)
[2021-11-20] MEDS: VENLAFAXINE 37.5 MG TAB GT SCH (09:30)
[2021-11-20] MEDS: AMIODARONE 200 MG TAB GT SCH (09:30)
[2021-11-20] MEDS: PANTOPRAZOLE 40 MG INJ VIAL IVP SCH (09:31)
[2021-11-20] MEDS: POLYETHYLENE GLYCOL 17 GM/PKT GT SCH (09:31)
--- NOTE | 2021-11-20 12:00 | NUR ---
PT RESTING WITH EYES CLOSED. IN NO DISTRESS. TRACH TO VENT WITH O2 @ 97%. PT CHANGED AND REPOSITIONED. RT ASSIST. WOUND CARE COMPLETED. NEEDS ALL MET AT THIS TIME. SAFETY MEASURES IN PLACE. WILL CONTINUE TO MONITOR CLOSELY. HOURLY ROUNDS CONDUCTED.
[2021-11-20] MEDS ORDERED: FUROSEMIDE 40 MG/4 ML VIAL IVP SCH (14:08)
--- NOTE | 2021-11-20 19:00 | NUR ---
CONTACTED MD REGARDING LABS FOR TOMORROW. ORDERS INPUTTED.
--- NOTE | 2021-11-20 19:30 | NUR ---
REPORT GIVEN TO NIGHTSSCFT RNCLAUDIA FOR CONTINUITY OF CARE.
--- NOTE | 2021-11-20 19:30 | NUR ---
RECEIVED REPORT FROM MARKEL CABELLO AT BEDSIDE FOR CONTINUITY OF CARE, PT IS AOX 1 HE HAS A TRACH TO VENT WITH FI02 AT 40% PEEP AT 5 TV AT 500 AND RR AT 18. PT IS BEDBOUND AND BOTH FEET HAVE FOOT DROP WITH HEEL PROTECTORS. PT HAS A G TUBE INTACT.PT HAS A SUPRAPUBIC BAL CATHETER INTACT AND ASYMPTOMATIC. PT HAS A RIGHT UPPER ARM MIDLINE INTACT AND ASYMPTOMATIC RUNNING NORMAL SALINE AT 60MLS/HR. PT IS ON CONTACT PRECAUTIONS FOR PSEUDOMONAS ON THE SPUTUM AND URINE.
--- NOTE | 2021-11-20 20:00 | NUR ---
PT IN BED V/S FOLLOWS: T 98.1 P 108 RR 18 B/P 98/74 02 93% ON ALL TRACH TO VENT SETTINGS. ALL ORDERED PRECAUTIONS IN PLACE.
--- NOTE | 2021-11-20 21:30 | NUR ---
PT WAS GIVEN ORDERED SUB Q HEPARIN SHOT PT UNABLE TO VERBALIZE UNDERSTANDING OF ORDERED MEDICATION. PT WAS TURNED, CHANGED AND REPOSITIONED IN BED. HE WAS SUCTIONED AND ORAL CARE PROVIDED. ALL ORDERED PRECAUTIONS IN PLACE.
--- NOTE | 2021-11-20 22:00 | NUR ---
NEW BAG OF D5 1/2 NS WAS HUNG HUNG AND RUNNING ORDERED. POINT OF CONTACT SISTER CALLED AND WAS UPDATED REGARDING PT CONDITION. ALL ORDERED PRECAUTIONS IN PLACE.
[2021-11-20] MEDS ORDERED: AMIKACIN PER PHARMACY MC PRN (23:05)
[2021-11-21] VITALS (11 sets, daily range): BP systolic 92–143; BP diastolic 66–87
--- NOTE | 2021-11-21 00:30 | NUR ---
PT V/S FOLLOWS: T 98.3 P 106 R 18 B/P 92/76 02 96%ON ALL TRACH TO VENT SETTINGS. AL ORDERED PRECAUTIONS IN PLACE.
[2021-11-21] MEDS ORDERED: AMIKACIN 500 MG/2 ML VIAL IV ONE (01:00)
--- NOTE | 2021-11-21 01:30 | NUR ---
PT LYING IN BED, AMIKACIN HUNG AND RUNNING ORDERED. PT SLEEPING WITH NO S/S OF PAIN OR DISTRESS. ALL ORDERED PRECAUTIONS IN PLACE.
[2021-11-21] MEDS: AMIKACIN 450 MG in DEXTROSE 5% 100 ML IV SCH (02:42)
[2021-11-21] MEDS ORDERED: LEVOTHYROXINE 0.025 MG TAB ONE (05:43)
[2021-11-21] MEDS ORDERED: LEVOTHYROXINE 0.112 MG TAB ONE (05:43)
[2021-11-21] MEDS: Z-GUARD PASTE TP SCH ×2 (06:01→13:00)
[2021-11-21] MEDS: LEVOTHYROXINE 0.025 MG, LEVOTHYROXINE 0.112 MG GT SCH ×2 (06:03)
[2021-11-21 06:26] LABS: BASOPHILS # (AUTO) 0.1 K/uL (0.00-0.22); BASOPHILS % (AUTO) 0.6 % (0.0-2.0); EOSINOPHILS # (AUTO) 0.2 K/uL (0-0.4); EOSINOPHILS % (AUTO) 2.4 % (0.0-4.0); HEMATOCRIT 37.4 % (36-52); HEMOGLOBIN 12.5 g/dL (12.0-18.0); LYMPHOCYTES # (AUTO) 1.3 K/uL (2.0-11.5); LYMPHOCYTES % (AUTO) 13.4 % (20.5-51.1); MEAN CORPUSCULAR HEMOGLOBIN 28 pg (27-31); MEAN CORPUSCULAR HGB CONC 33 g/dL (33-37); MEAN CORPUSCULAR VOLUME 83.8 fL (80-94); MONOCYTES # (AUTO) 1.2 K/uL (0.8-1.0); NEUTROPHILS # (AUTO) 7.1 K/uL (1.8-7.7); NEUTROPHILS % (AUTO) 71.6 % (42.2-75.2); PLATELET COUNT (AUTO) 304 K/uL (140-450); RED BLOOD CELL COUNT(AUTO) 4.46 MIL/uL (4.20-6.10); RED CELL DISTRIBUTION WIDTH 15.8 % (11.6-13.7); WHITE BLOOD COUNT (AUTO) 9.9 K/uL (4.8-10.8)
[2021-11-21 06:47] LABS: ANION GAP 16.3 (8-16); CARBON DIOXIDE 24.5 mmol/L (21-32); CREATININE 0.9 mg/dL (0.6-1.3)
[2021-11-21 06:49] LABS: POTASSIUM 2.8 mmol/L (3.5-5.1)
[2021-11-21] MEDS: ACETAMINOPHEN 325 MG TAB PO PRN ×3 (07:01→15:53)
--- NOTE | 2021-11-21 07:02 | NUR ---
PT NOTED WITH FEVER OF 100.8, SHE WAS GIVEN TYLENOL VIA GT AT THIS TIME, WELL COOLING MEASURES OF CHG BATH AND ICE PACKS. PT WAS CLEANED, TURNED AND REPOSITIONED IN BED. PT ALSO GIVEN DUE SYNTHROID VIA GR. G TUBE FEEDING STARTED ORDERED OSMOLITE 1.5 STARTED AT 20 MLS /HR WITH 200MLS H2O FLUSH. PT SISTER CALLED AND WAS UPDATED REGARDING HER BROTHER CONDITION. PAGED MD ON NGYUEN BECAUSE THE PT LEFT KNEE AND LOWER LEG WAS VERY WARM TO THE TOUCH AND RED COMPARED WITH THE OTHER LEG. INFORMED EMERGENCY SERVICES PROFESSIONAL MD MOREAU AND HE ORDERED VENOUS US OF BILATERAL LOWER LEGS.TO RULE OUT DVT. ALSO RECEIVED CRITICAL LAB OF POTASSIUM 2.8, NOTIFIED WHOM ORDERED AN ADDITION 40 MEQ X IN ADDITION TO THE SCHEDULED 40 MEQ VIA GT. WILL ENDOSE CARE TO NEXT SHIFT.
[2021-11-21] MEDS ORDERED: POTASSIUM CHLORIDE 20% 40 MEQ/15 ML UDC GT ONE (07:10)
[2021-11-21] MEDS: ALBUTEROL SULFATE/IPRATROPIU 3 ML SOL IH SCH ×5 (07:41→20:30)
--- NOTE | 2021-11-21 08:00 | NUR ---
RECEIVED REPORT FROM HAM RN. PT NONVERBAL. HOB ELEVATED. TRACH TO VENT. FIO2 85%, PEEP 5, RR 18 TV 500, 02 @ 99%. GTUBE DRESSING C/D/I. SUPRAPUBIC CATHETER VIA GRAVITY IN BAL BAG. IVF INFUSING ON MÓNICA MIDLINE. NEEDS ALL MET AT THIS TIME. SAFETY MEASURES IN PLACE. WILL CONTINUE TO MONITOR CLOSELY.
--- NOTE | 2021-11-21 08:14 | NUR ---
BILATERAL LE ULTRASOUND AT BEDSIDE.
[2021-11-21] MEDS: POTASSIUM CHLORIDE 20% 40 MEQ/15 ML UDC GT SCH (09:18)
[2021-11-21] MEDS: PANTOPRAZOLE 40 MG INJ VIAL IVP SCH (09:19)
[2021-11-21] MEDS: POLYETHYLENE GLYCOL 17 GM/PKT GT SCH (09:19)
[2021-11-21] MEDS: VENLAFAXINE 37.5 MG TAB GT SCH (09:19)
[2021-11-21] MEDS: AMIODARONE 200 MG TAB GT SCH (09:20)
--- NOTE | 2021-11-21 09:21 | NUR ---
RT AT BEDSIDE. TITRATING FIO2 TO 80%. Addendum: 11/21/21 at 0923 by Agency 09 MARKEL RN RT AT BEDSIDE. TITRATING FIO2 TO 80%. GTUBE FEEDING INFUSING. 3 ML RESIDUAL. HOB ELEVATED. TOLERATING GTUBE FEEDING. PT RESTING WITH EYES CLOSED. CHEST RISING AND FALLING.
--- NOTE | 2021-11-21 10:00 | NUR ---
PT CURRENTLY ON FIO2 @ 70%, PEEP 5, R18, TV 500. DR. JERNIGAN ROUNDED ON PT AND ORDER FOR A XRC. ORDERS INPUTTED. PT IN NO DISTRESS. HOB ELEVATED. TRACH TO VENT.
--- NOTE | 2021-11-21 14:00 | NUR ---
PT'S MOTHER AT BEDSIDE AND POC WAS DISCUSSED WITH MOTHER VIA WOODS WARDEN.
[2021-11-21] MEDS: DEXT 5% / NACL 0.45% 1,000 ML IV SCH (14:11)
--- NOTE | 2021-11-21 16:00 | NUR ---
PRN TYLENOL GIVEN
--- NOTE | 2021-11-21 18:04 | NUR ---
PT RESTING IN BED. HOB ELEVATED. TRACH TO VENT. PT HAS BEEN TITRATED DOWN TO FIO2 @ 45% WITH O2 @ 96%. PT WITH 2 ML RESIDUAL. TOLERATING FEEDING. IVF INFUSING ON MÓNICA MIDLINE. NEEDS ALL MET AT THIS TIME. PT IN NO DISTRESS. HOURLY ROUNDS CONDUCTED EVERY HOUR THROUGHOUT MY SHIFT.
--- NOTE | 2021-11-21 19:27 | NUR ---
REPORT GIVEN TO NIGHTSHIFT RN FOR CONTINUITY OF CARE.
[2021-11-22] VITALS: BP 113/80
--- NOTE | 2021-11-22 | NUR ---
0000 INCONTINENT OF BROWNISH BM WASHED TURN LINEN CHANGE DONE SUCTION REMAINS ON VENT
[2021-11-22] MEDS: AMIKACIN 450 MG in DEXTROSE 5% 100 ML IV SCH (00:28)
[2021-11-22] MEDS: Z-GUARD PASTE TP SCH ×2 (01:00→13:00)
[2021-11-22 04:00] VITALS: BP 144/93
[2021-11-22] MEDS: ALBUTEROL SULFATE/IPRATROPIU 3 ML SOL IH SCH ×6 (05:00→20:00)
[2021-11-22] MEDS ORDERED: LEVOTHYROXINE 0.025 MG TAB ONE (06:10)
[2021-11-22] MEDS ORDERED: LEVOTHYROXINE 0.112 MG TAB ONE (06:10)
[2021-11-22] MEDS: LEVOTHYROXINE 0.025 MG, LEVOTHYROXINE 0.112 MG GT SCH ×2 (06:25)
--- NOTE | 2021-11-22 07:00 | NUR ---
RECEIVED PT ON ACVC 18, 500, +5, 45%. WHEELS ARE LOCKED, VENT PLUGGED INTO RED OUTLET, AMBUBAG AT BEDSIDE, PT RESTING COMFORTABLY
[2021-11-22] MEDS: DEXT 5% / NACL 0.45% 1,000 ML IV SCH ×2 (07:19→23:42)
[2021-11-22 10:32] LABS: BASOPHILS % (AUTO) 0.4 % (0.0-2.0); EOSINOPHILS # (AUTO) 0.3 K/uL (0-0.4); EOSINOPHILS % (AUTO) 2.6 % (0.0-4.0); HEMATOCRIT 36.3 % (36-52); HEMOGLOBIN 11.9 g/dL (12.0-18.0); LYMPHOCYTES # (AUTO) 1.3 K/uL (2.0-11.5); LYMPHOCYTES % (AUTO) 11.3 % (20.5-51.1); MEAN CORPUSCULAR HEMOGLOBIN 28 pg (27-31); MEAN CORPUSCULAR HGB CONC 33 g/dL (33-37); MEAN CORPUSCULAR VOLUME 84.4 fL (80-94); MONOCYTES # (AUTO) 0.8 K/uL (0.8-1.0); MONOCYTES % (AUTO) 7.5 % (1.7-9.3); NEUTROPHILS # (AUTO) 8.7 K/uL (1.8-7.7); NEUTROPHILS % (AUTO) 78.2 % (42.2-75.2); PLATELET COUNT (AUTO) 193 K/uL (140-450); RED CELL DISTRIBUTION WIDTH 15.8 % (11.6-13.7); WHITE BLOOD COUNT (AUTO) 11.1 K/uL (4.8-10.8)
[2021-11-22] MEDS: AMIODARONE 200 MG TAB GT SCH (10:39)
[2021-11-22] MEDS: VENLAFAXINE 37.5 MG TAB GT SCH (10:40)
[2021-11-22] MEDS: POLYETHYLENE GLYCOL 17 GM/PKT GT SCH (10:41)
[2021-11-22] MEDS: PANTOPRAZOLE 40 MG INJ VIAL IVP SCH (10:41)
[2021-11-22 10:59] LABS: ALBUMIN 2.4 g/dL (3.4-5.0); ANION GAP 13.5 (8-16); CARBON DIOXIDE 23.3 mmol/L (21-32); CREATININE 0.6 mg/dL (0.6-1.3); TOTAL BILIRUBIN 0.3 mg/dL (0.0-1.0)
[2021-11-22 11:18] LABS: POTASSIUM 2.8 mmol/L (3.5-5.1)
[2021-11-22] MEDS: POTASSIUM CHLORIDE 20% 40 MEQ/15 ML UDC GT SCH (11:36)
[2021-11-22] MEDS ORDERED: POTASSIUM CHLORIDE 40 MEQ, LIDOCAINE MPF 1% 25 MG in NACL 0.9% 250 ML IV ONE (15:35)
[2021-11-22] MEDS ORDERED: POTASSIUM CHLORIDE 20% 40 MEQ/15 ML UDC GT SCH (18:00)
[2021-11-22 20:00] VITALS: BP 159/105
--- NOTE | 2021-11-22 20:00 | NUR ---
RECEIVED REPORT FROM MORNING SHIFT RN. PATIENT IS ON TRACH TO VENT. FIO2 40%, PEEP 5, RR 18 TV 500, 02 @ 98%. HOB ELEVATED. PATIENT IS ON G-TUBE FEEDING @ 40ML, OSMOLITE 1.5. SUPRAPUBIC CATHETER VIA GRAVITY IN BAL BAG. IVF INFUSING ON MÓNICA, MIDLINE. BED WHEELS IS LOCKED. CALL LIGHT WITHIN REACH. ALL SAFETY MEASURES IN PLACE. WILL CONTINUE TO MONITOR.
--- NOTE | 2021-11-22 22:00 | NUR ---
ALL PRESCRIBED MEDICATION WAS GIVEN. SAFETY MEASURES WAS IMPLEMENTED. WILL CONTINUE TO MONITOR.
[2021-11-23] VITALS: BP 141/106
--- NOTE | 2021-11-23 | NUR ---
PATIENTS IV TUBE FEEDING WAS REPLACED. G-TUBE FEEDING RUNNING AT 40ML. SAFETY MEASURE WAS IMPLEMENTED. WILL CONTINUE TO MONITOR.
--- NOTE | 2021-11-23 | NUR ---
ALL PRESCRIBED MEDICATION WAS GIVEN. VITAL SIGN MEASURED, BP-141/106, RR 18, HR-101, T-97.8, SATING ON 97% WITH FI02-40%, PEEP-5, VT-500 RATE 14. ALL SAFETY MEASURES WAS IMPLEMENTED. WILL CONTINUE TO MONITOR.
[2021-11-23] MEDS: AMIKACIN 450 MG in DEXTROSE 5% 100 ML IV SCH (00:58)
[2021-11-23] MEDS: Z-GUARD PASTE TP SCH ×2 (01:03→13:00)
--- NOTE | 2021-11-23 02:00 | NUR ---
PATIENT DUE MEDICATION WAS GIVEN. PATIENT HAS SINUS TACHYCARDIA WITH HR 106 BPM, SATING ON 97%. BED WHEEL WAS LOCKED. ALL SAFETY MEASURES WAS IMPLEMENTED. WILL CONTINUE TO MONITOR.
[2021-11-23 04:00] VITALS: BP 153/103
--- NOTE | 2021-11-23 04:00 | NUR ---
MORNING CARE WAS GIVEN. HOB ELEVATED. PATIENT SATING ON 98%. ALL SAFETY PRECAUTION WAS IMPLEMENTED. WILL CONTINUE TO MONITOR.
[2021-11-23] MEDS: ALBUTEROL SULFATE/IPRATROPIU 3 ML SOL IH SCH ×6 (04:40→23:50)
[2021-11-23] MEDS: DEXT 5% / NACL 0.45% 1,000 ML IV SCH (04:50)
[2021-11-23] MEDS ORDERED: LEVOTHYROXINE 0.112 MG TAB ONE (05:38)
[2021-11-23] MEDS ORDERED: LEVOTHYROXINE 0.025 MG TAB ONE (05:38)
[2021-11-23] MEDS: LEVOTHYROXINE 0.025 MG, LEVOTHYROXINE 0.112 MG GT SCH ×2 (05:41)
[2021-11-23 06:38] LABS: ANION GAP 11.4 (8-16); CREATININE 0.6 mg/dL (0.6-1.3); POTASSIUM 4.4 mmol/L (3.5-5.1)
[2021-11-23 06:40] LABS: BASOPHILS # (AUTO) 0.1 K/uL (0.00-0.22); BASOPHILS % (AUTO) 0.4 % (0.0-2.0); EOSINOPHILS # (AUTO) 0.3 K/uL (0-0.4); EOSINOPHILS % (AUTO) 2.2 % (0.0-4.0); HEMATOCRIT 37.7 % (36-52); HEMOGLOBIN 12.4 g/dL (12.0-18.0); LYMPHOCYTES # (AUTO) 1.2 K/uL (2.0-11.5); LYMPHOCYTES % (AUTO) 9.4 % (20.5-51.1); MEAN CORPUSCULAR HEMOGLOBIN 28 pg (27-31); MEAN CORPUSCULAR HGB CONC 33 g/dL (33-37); MEAN CORPUSCULAR VOLUME 85.1 fL (80-94); MONOCYTES # (AUTO) 1.1 K/uL (0.8-1.0); MONOCYTES % (AUTO) 8.5 % (1.7-9.3); NEUTROPHILS # (AUTO) 9.9 K/uL (1.8-7.7); NEUTROPHILS % (AUTO) 79.5 % (42.2-75.2); PLATELET COUNT (AUTO) 273 K/uL (140-450); RED BLOOD CELL COUNT(AUTO) 4.43 MIL/uL (4.20-6.10); RED CELL DISTRIBUTION WIDTH 16.2 % (11.6-13.7); WHITE BLOOD COUNT (AUTO) 12.5 K/uL (4.8-10.8)
--- NOTE | 2021-11-23 06:46 | NUR ---
PT IS STABLE. NO ACUTE EVENTS THROUGHOUT THE NIGHT. NO S/SX OF DISTRESS NOTED. ALL NEEDS MET.DENIES PAIN AT THE MOMENT. ALL PRECAUTIONS IN PLACE.CALL LIGHT WITHIN REACH. WILL ENDORSE TO AM SHIFT NURSE.
--- NOTE | 2021-11-23 07:10 | NUR ---
RECEIVED PT ON ACVC 500,18,5,40% WHEELS ARE LOCKED, VENT PLUGGED INTO RED OUTLET AND AMBUBAG AT BEDSIDE. ALARMS ARE SET AND AUDIBLE.
[2021-11-23] MEDS: POLYETHYLENE GLYCOL 17 GM/PKT GT SCH (09:00)
[2021-11-23] MEDS ORDERED: AMIKACIN IV (10:30)
[2021-11-23] MEDS: PANTOPRAZOLE 40 MG INJ VIAL IVP SCH (10:49)
[2021-11-23] MEDS: AMIODARONE 200 MG TAB GT SCH (10:50)
[2021-11-23] MEDS: VENLAFAXINE 37.5 MG TAB GT SCH (10:51)
[2021-11-23] MEDS: POTASSIUM CHLORIDE 20% 40 MEQ/15 ML UDC GT SCH (10:52)
[2021-11-23] MEDS: METOPROLOL 25 MG TAB PO SCH ×2 (17:36→21:43)
--- NOTE | 2021-11-23 18:49 | NUR ---
1814 ACLS HERE REASSESSMENT OF PATIENT STARTED ACCIDENTALLY GASTROSTOMY TUBE CAME OUT .HOLD TRANSFER AT THESE TIME .STOMA STILL OPEN PUSH IN GASTROSTOMY TUBE AT THESE TIME .NO EVIDENCE OF BLEEDING FROM THE SITE ORDER KUB STAT PMD CALLED INFORMED OF INCIDENCE CHARGE NURSE AWARE CANCEL TRANFER PLACED BACK ON MONITOR AND VENT
[2021-11-23 20:00] VITALS: BP_SYST 139; BP_SYST 153; BP_DIAS 103; BP_DIAS 105
[2021-11-24] VITALS: BP 140/106
--- NOTE | 2021-11-24 01:27 | NUR ---
PATIENT DISCHARGE TO [facility] WITH ALL BELONGINGS. A COPY OF DC INSTRUCTION SENT WITH PATIENT. ACCOMPANED BY ACLS AMBULACE TEAM. KAITLYN MENESES RN
== END 2021-11-24 01:15 | DRG 870 ==
LOC: MED 17:25 → MTU 20:48 → MMU 21:00 → MIC 11-16 07:19 → MTU 11-17 00:55
PROVIDERS: ADMIT Family Medicine; ATTEND Family Medicine
PROC: 5A1955Z Respiratory Ventilation, Greater than 96 Consecutive Hours (ICD-10-PCS; principal; 2021-11-09)
DX: A41.52 Sepsis due to Pseudomonas (principal); J15.1 Pneumonia due to Pseudomonas; G82.50 Quadriplegia, unspecified; J96.21 Acute and chronic respiratory failure with hypoxia; N39.0 Urinary tract infection, site not specified; K56.7 Ileus, unspecified; E44.0 Moderate protein-calorie malnutrition; Z68.41 Body mass index [BMI] 40.0-44.9, adult; N17.9 Acute kidney failure, unspecified; G93.1 Anoxic brain damage, not elsewhere classified; J95.851 Ventilator associated pneumonia; I16.0 Hypertensive urgency; K80.20 Calculus of gallbladder without cholecystitis without obstruction; Z20.822 Contact with and (suspected) exposure to COVID-19; D63.8 Anemia in other chronic diseases classified elsewhere; E87.6 Hypokalemia; E87.8 Other disorders of electrolyte and fluid balance, not elsewhere classified; E03.9 Hypothyroidism, unspecified; E66.01 Morbid (severe) obesity due to excess calories; K94.00 Colostomy complication, unspecified; Y83.8 Other surgical procedures as the cause of abnormal reaction of the patient, or of later complication, without mention of misadventure at the time of the procedure; Y82.8 Other medical devices associated with adverse incidents; F79 Unspecified intellectual disabilities; N20.0 Calculus of kidney; Z95.0 Presence of cardiac pacemaker; Y92.89 Other specified places as the place of occurrence of the external cause
CPT/HCPCS: 36415; 36600; 71045; 74018; 80048; 80053; 80150; 81001; 82150; 82436; 82803; 83036; 83605; 83690; 83735; 83880; 84100; 84133; 84300; 84436; 84439; 84443; 84479; 84484; 85025; 85610; 85730; 87040; 87070; 87081; 87086; 87205; 87635-QW; 93970; 94002; 94003; 94640; 96365; 99285; 99291; C9113; J0278; J0360; J1644; J1940; J2001; J2543; J3480; J7030; J7060; Q0092

== ENCOUNTER 2021-12-22 13:02 | Inpatient (IN) | payer OTHER ==
[~2021-12-22] VITALS: Ht 175.3 cm; Wt 41.7 kg
[2021-12-22 13:02] VITALS: BP 108/57
[~2021-12-22 13:02] MED LIST changes: +AMIKACIN IV
--- NOTE | 2021-12-22 13:10 | NUR ---
26 Y/O MALE BIBA FROM [facility] C/C SBO WITH SURGERY SCHEDULED ON 12/24 FOR DIVERTING COLOSTOMY. +G TUBE. +SUBPRAPUBIC CATHETER IN PLACE. ABD IS ROUND, FIRM AND DISTENDED. FLACC SCORE 0. PT IS VENT DEPENDENT. +WOUND PRESENT TO SACRUM. PT IN GOWN, ON APPLICATION DESIGNER, ATTACHED TO VENT. PMH:VENT DEPENDENT- CHRONIC RESP FAILURE, QUADRIPLEGIC, A FIB, PACEMAKER, HYPOTHYROID, KIDNEY STONES/GALLSTONES, URINARY RETENTION. SEE CHART FOR EXTENSIVE HX
--- NOTE | 2021-12-22 13:11 | NUR ---
DR PATEL AT BEDSIDE EVALUATING PT
--- NOTE | 2021-12-22 13:29 | NUR ---
LAB AT BEDSIDE
--- NOTE | 2021-12-22 14:00 | NUR ---
RAD AT BEDSIDE
[2021-12-22] MEDS ORDERED: CEFEPIME 2,000 MG in DEXTROSE 5% 100 ML IV ONE (14:30)
[2021-12-22 14:41] LABS: BASOPHILS # (AUTO) 0.1 K/uL (0.00-0.22); BASOPHILS % (AUTO) 0.6 % (0.0-2.0); EOSINOPHILS # (AUTO) 0.2 K/uL (0-0.4); EOSINOPHILS % (AUTO) 1.8 % (0.0-4.0); HEMOGLOBIN 12.7 g/dL (12.0-18.0); LYMPHOCYTES # (AUTO) 1.5 K/uL (2.0-11.5); LYMPHOCYTES % (AUTO) 11.3 % (20.5-51.1); MEAN CORPUSCULAR HEMOGLOBIN 29 pg (27-31); MEAN CORPUSCULAR HGB CONC 33 g/dL (33-37); MEAN CORPUSCULAR VOLUME 87.9 fL (80-94); MONOCYTES % (AUTO) 7.3 % (1.7-9.3); NEUTROPHILS # (AUTO) 10.4 K/uL (1.8-7.7); PLATELET COUNT (AUTO) 213 K/uL (140-450); RED BLOOD CELL COUNT(AUTO) 4.44 MIL/uL (4.20-6.10); RED CELL DISTRIBUTION WIDTH 16.4 % (11.6-13.7); WHITE BLOOD COUNT (AUTO) 13.2 K/uL (4.8-10.8)
[2021-12-22 14:57] LABS: PROTHROMBIN TIME 9.3 secs (10.8-13.4)
--- NOTE | 2021-12-22 15:20 | NUR ---
WOUNDS PRESENT ON ADMISSION. PICTURE OF SACRUM TAKEN AND PLACED IN CHART.
[2021-12-22 15:27] LABS: CARBON DIOXIDE 25.7 mmol/L (21-32); CHLORIDE 98 mmol/L (98-107); GLUCOSE 92 mg/dL (74-106); POTASSIUM 4.3 mmol/L (3.5-5.1); SODIUM SERUM 134 mmol/L (136-145)
[2021-12-22 15:28] LABS: ASPARTATE AMINOTRANSFERASE 16 U/L (15-37); CREATININE 0.9 mg/dL (0.6-1.3); GFR ARICAN-AMERICAN 130 mL/min (>90); TOTAL BILIRUBIN 0.4 mg/dL (0.0-1.0); UREA NITROGEN, BLOOD 28 mg/dL (7-18)
[2021-12-22 15:29] LABS: ALBUMIN 3.3 g/dL (3.4-5.0)
[2021-12-22 15:41] LABS: APPEARANCE,URINE SL CLOUDY (CLEAR); BILIRUBIN,URINE NEGATIVE (NEGATIVE); BLOOD, URINE 3+ (NEGATIVE); COLOR,URINE AMBER (YELLOW); LEUKOCYTE ESTERASE ,URINE 3+ (NEGATIVE); NITRITE, URINE POSITIVE (NEGATIVE); UGLUCOSE NEGATIVE (NEGATIVE)
[2021-12-22] MEDS ORDERED: CEFEPIME 2,000 MG VIAL IV ONE (15:46)
[2021-12-22] MEDS ORDERED: guaiFENesin DM 200/20 MG-10 ML 10 ML UDC PO PRN (15:50)
[2021-12-22] MEDS ORDERED: HYDROcodone/APAP 7.5/325 MG 1 TAB PO PRN (15:50)
[2021-12-22] MEDS ORDERED: POTASSIUM CHLORIDE 10 MEQ TABER PO PRN (15:50)
[2021-12-22] MEDS ORDERED: NACL 0.9% 1,000 ML IV SCH (15:50)
[2021-12-22] MEDS ORDERED: ONDANSETRON 4 MG/2 ML VIAL IM/IVP PRN (15:50)
[2021-12-22] MEDS ORDERED: DOCUSATE SODIUM 100 MG GELCAP PO PRN (15:50)
[2021-12-22] MEDS ORDERED: ZOLPIDEM 5 MG TAB PO PRN (15:50)
[2021-12-22] MEDS ORDERED: ACETAMINOPHEN 325 MG TAB PO PRN (15:50)
[2021-12-22 16:22] LABS: OTHER CASTS, URINE None Seen /LPF (None Seen)
[2021-12-22 17:29] LABS: MAGNESIUM 2.4 mg/dL (1.8-2.4); PHOSPHORUS 4.9 mg/dL (2.5-4.9); TRIGLYCERIDES 133 mg/dL (30-150)
[2021-12-22 17:30] LABS: AMYLASE 66 U/L (25-115); CHOL/HDL RATIO 3.2 (1-4.5); FREE T4 (FREE THYROXINE) 1.76 ng/dL (0.76-1.46); HDL CHOLESTEROL 44 mg/dL (40-60); LDL (CALC) 69 mg/dL (60-100); LIPASE 82 U/L (73-393); THYROID STIMULATING HORMONE 7.07 uIU/mL (0.34-3.74)
--- NOTE | 2021-12-22 17:32 | NUR ---
PT REPOSITIONED IN BED. HOB ELEVATED. PT CLEANED AND PROVIDED NEW DIAPER. ALL NEEDS MET AT THIS TIME.
--- NOTE | 2021-12-22 19:12 | NUR ---
REPORT GIVEN TO MARKEL CRAWLEY. TRANSFER OF CARE AT THIS TIME
--- NOTE | 2021-12-22 19:13 | NUR ---
report received from cindy daniel. continuity of pt care at this time.
[2021-12-22 19:22] VITALS: BP 92/51
--- NOTE | 2021-12-22 19:23 | NUR ---
PT laying in bed locked in lowest position w x2 siderails up for pt safety, hob elevated. Pt awake, gcs 6, non-verbal, trach to vent w settings of 500vt, 40% fiO2, peep 5, rate 18 tolerating well O2 sat 100%, coarse lung sounds throughout. Gtube in place, abdomen distended, suprapubic cather draining to gravity w 700cc output. NS running at 60ml/hr iv site intact/patent.No signs of pain. VS w/in normal limits. will continue to monitor. RT at bedside.
[2021-12-22] MEDS ORDERED: METO25TA14 GT (19:24)
[2021-12-22] MEDS ORDERED: ZINC50TA76 GT (19:24)
[2021-12-22] MEDS ORDERED: SODIUM PHOSPHATE 118 ML ENEM RC SCH (20:45)
[2021-12-22] MEDS ORDERED: bisacodyL 10 MG SUPP RC PRN (20:45)
--- NOTE | 2021-12-22 20:45 | NUR ---
Patient will be admitted to care of . Admited to TELE. Will go to room 108B. Belongings list completed. Report to FATUMA.
--- NOTE | 2021-12-22 20:46 | NUR ---
PT TRANSPORTED VIA GURNEY FROM ER ON VENT. VENT SETTINGS: FIO2 40%, VT 500, RT 18, PEEP 5. PT IS AWAKE AND ALERT BUT NON-VERBAL. PT SHOWS NO SIGNS OF PAIN AND DENIES PAIN. PT IS CURRENTLY NPO EXCEPT MEDS. PT IS SCHEDULE FOR DIVERTING COLOSTOMY ON 12/24/21. CAME IN FOR SMALL BOWEL OBSTRUCTION. PT HAS LEFT HAND 24 GAUGE WITH NS 60 ML/HR WHICH WILL BE CHANGED TO D5% NS 70 ML/HR. PT HAS SUPRAPUBIC CATHETER. DRAINING JIMBO COLOR URINE. PT HAS A SACRAL WOUND. PT HAS HEEL PROTECTORS ON. PLAN OF CARE DISCUSSED. COMMUNICATION BOARD UPDATED. WILL CONTINUE TO MONITOR THE PT.
[2021-12-22] MEDS: DEXT 5% / NACL 0.9% 500 ML IV SCH (20:55)
[2021-12-22 20:56] VITALS: BP 94/65
--- NOTE | 2021-12-22 20:59 | NUR ---
Note zach in EDM - 12/22/21 at 2100 by MIRNA Patient will be admitted to care of . Admited to TELE. Will go to room 108B. Belongings list completed. Report to FATUMA.
[2021-12-22] MEDS: METOPROLOL 25 MG TAB GT SCH (21:00)
[2021-12-22] MEDS: METHADONE 10 MG TAB GT SCH (21:00)
[2021-12-22] MEDS: PREGABALIN 25 MG CAP GT SCH (21:00)
--- NOTE | 2021-12-22 21:07 | NUR ---
REPORTED TO ER BED 11 TO TRANSFER PT TO 108-B. TRANSPORTED PT ON VENTILATOR ON 100% FIO2 WITH NO COMPLICATIONS. PT IS RESTING COMFORTABLY BACK ON 40% FIO2 SPO2 @ 96%, NO RESPIRATORY DISTRESS NOTED, AIRWAY PATENT AND SECURE. WILL CONTINUE TO MONITOR.
--- NOTE | 2021-12-22 22:10 | NUR ---
ALL DUE MEDS GIVEN. NO ADVERSE REACTION NOTED. PT HAS NO COMPLAINS AND DENIES PAIN. PT 02 SAT 95%. WILL CONTINUE TO MONITOR THE PT.
--- NOTE | 2021-12-22 22:53 | NUR ---
REPORTED TO PT ROOM BECAUSE HIS PEAK PRESSURE ALARM WAS ALARMING AND PT SPO2 DECREASED TO 80%. PT PRESENTS TRACH TO VENT WITH A SHILEY XLT 8 ON A REPPSCAPE R860 VENTILATOR SETTINGS HAVE BEEN SWITCHED TO PRVC VT500, RR18, PEEP+5, FIO2 80%. SPO2 IMPROVED AND PEAK PRESSURE ALARM NO LONGER GOING OFF. NO SIGNS OF RESPIRATORY DISTRESS NOTED AT THIS TIME PT'S CURRENT SATURATION IS 93%. ANTERIOR AUSCULTATION REVEALED BS COARSE CRACKLES THROUGHOUT, SX MODERATE PALE/YELLOW THICK SECRETIONS. HOB ELEVATED, AMBU BAG AT BEDSIDE, VENT PLUGGED INTO RED OUTLET. WILL CONTINUE TO MONITOR.
[2021-12-23] VITALS: BP 104/59
[2021-12-23] MEDS ORDERED: DEXTRAN OP SCH
[2021-12-23] MEDS ORDERED: HYPROMELLOSE OP SCH
--- NOTE | 2021-12-23 01:18 | NUR ---
PT IS SLEEPING COMFORTABLY IN BED. PT O2 SAT IS 99%. PT IS NOT IN ANY RESPIRATORY DISTRESS. BREATHING EVEN AND UNLABORED. IVF RUNNING PER MD ORDER. ALL SAFETY MEASURES TAKEN. WILL CONTINUE TO MONITOR THE PT.
[2021-12-23 04:00] VITALS: BP 125/73
--- NOTE | 2021-12-23 04:03 | NUR ---
PT IS SLEEPING COMFORTABLY IN BED. PT O2 SAT IS 99%. PT IS NOT IN ANY RESPIRATORY DISTRESS. BREATHING EVEN AND UNLABORED. IVF RUNNING PER MD ORDER. VSS. AFEBRILE. ALL SAFETY MEASURES TAKEN. WILL CONTINUE TO MONITOR THE PT.
[2021-12-23] MEDS: DEXT 5% / NACL 0.9% 500 ML IV SCH ×2 (04:04→05:40)
--- NOTE | 2021-12-23 04:33 | NUR ---
PT WAS CLEANED AND CHANGED. PT HAD A BM. PT TOLERATED THE CHANGING WELL. PT IS CURRENTLY SATING 95%. WILL CONTINUE TO MONITOR THE PT.
--- NOTE | 2021-12-23 07:05 | NUR ---
RECEIVED REPORT FROM BLOOD TESTER FOWL NURSE: PATIENT IN BED AWAKE & ALERT. BREATHING EFFORTLESSLY WITH TRACH-VENT SETTINGS FIO2-70, VT500, PEEP5, RATE18 AND O2 SAT AT 100%. IV ACCESS WITH 24G CATH AT LEFT HAND AND IVF OF D5NS IN PROGRESS AT 70ML/HR. PATIENT SHOWS NO SIGNS OF DISCOMFORT. SUPRAPUBIC CATH DRAINING CLEAR YELLOW URINE. WILL CONTINUE PLAN OF CARE AND MAINTAIN SAFETY.
--- NOTE | 2021-12-23 07:07 | NUR ---
ENDORSED PT TO DAY SHIFT RN FOR CONTINUITY OF CARE. PT IS STABLE.
[2021-12-23 07:16] LABS: ANION GAP 13.2 (8-16); CARBON DIOXIDE 25.1 mmol/L (21-32); CREATININE 0.5 mg/dL (0.6-1.3); POTASSIUM 3.3 mmol/L (3.5-5.1)
[2021-12-23] MEDS ORDERED: LEVOTHYROXINE 0.025 MG, LEVOTHYROXINE 0.112 MG GT SCH ×2 (07:21)
[2021-12-23 07:28] LABS: BASOPHILS % (AUTO) 0.4 % (0.0-2.0); EOSINOPHILS # (AUTO) 0.3 K/uL (0-0.4); EOSINOPHILS % (AUTO) 2.6 % (0.0-4.0); HEMATOCRIT 38.9 % (36-52); HEMOGLOBIN 12.8 g/dL (12.0-18.0); LYMPHOCYTES # (AUTO) 1.5 K/uL (2.0-11.5); LYMPHOCYTES % (AUTO) 13.9 % (20.5-51.1); MEAN CORPUSCULAR HEMOGLOBIN 29 pg (27-31); MEAN CORPUSCULAR HGB CONC 33 g/dL (33-37); MEAN CORPUSCULAR VOLUME 86.9 fL (80-94); MONOCYTES # (AUTO) 0.9 K/uL (0.8-1.0); MONOCYTES % (AUTO) 8.2 % (1.7-9.3); NEUTROPHILS % (AUTO) 74.9 % (42.2-75.2); PLATELET COUNT (AUTO) 225 K/uL (140-450); RED BLOOD CELL COUNT(AUTO) 4.48 MIL/uL (4.20-6.10); RED CELL DISTRIBUTION WIDTH 16.8 % (11.6-13.7); WHITE BLOOD COUNT (AUTO) 10.7 K/uL (4.8-10.8)
[2021-12-23 08:00] VITALS: BP 121/76
[2021-12-23] MEDS ORDERED: LEVOTHYROXINE 0.025 MG TAB ONE (08:09)
[2021-12-23] MEDS ORDERED: LEVOTHYROXINE 0.112 MG TAB ONE (08:10)
--- NOTE | 2021-12-23 08:25 | NUR ---
PT SEEN BY DR UGALDE, ALSO CLARIFIED CURRENT IVF ORDERS WITH DR UGALDE, PT HAS NS AT D5NS. PER MD TO DC NS AND CONTINUE D5NS
--- NOTE | 2021-12-23 08:31 | NUR ---
PATIENT HAS BEEN SCREENED AND CATEGORIZED HIGH NUTRITION RISK. PATIENT WILL BE SEEN WITHIN 1-2 DAYS OF ADMISSION. CONSULT RECEIVED FOR WOUNDS AND PRESSURE INJURY AMANDA HUFF RD
[2021-12-23] MEDS: AMIODARONE 200 MG TAB GT SCH (08:34)
[2021-12-23] MEDS: METOPROLOL 25 MG TAB GT SCH ×2 (08:35→21:00)
[2021-12-23] MEDS: METHADONE 10 MG TAB GT SCH ×2 (08:35→21:00)
[2021-12-23] MEDS: POLYETHYLENE GLYCOL 17 GM/PKT GT SCH (08:36)
[2021-12-23] MEDS: PREGABALIN 25 MG CAP GT SCH ×2 (08:36→21:00)
[2021-12-23] MEDS: GLYCOPYRROLATE 1 MG TAB GT SCH ×3 (08:36→17:00)
[2021-12-23] MEDS: ZINC SULF 220 MG CAP GT SCH (08:37)
[2021-12-23] MEDS: PANTOPRAZOLE 40 MG TABEC PO SCH (08:37)
[2021-12-23] MEDS ORDERED: LEVOTHYROXINE SODIUM 137 MCG GT/PO SCH (09:00)
[2021-12-23] MEDS ORDERED: ZINC 220 MG GT SCH (09:00)
[2021-12-23] MEDS ORDERED: VENLAFAXINE HCL 100 MG GT/PO SCH (09:00)
[2021-12-23] MEDS ORDERED: NON-FORMULARY ITEM (Amiodarone HCl (Amiodarone Hcl) 200 MG) GT SCH (09:00)
[2021-12-23] MEDS ORDERED: VENLAFAXINE XR 75 MG CAPER PO SCH (10:13)
[2021-12-23 12:00] VITALS: BP 100/65
--- NOTE | 2021-12-23 12:12 | NUR ---
WOUND CARE EVALUATION NOTE: SKIN ASSESSMENT DONE WITH THIS 26 YO PT. AWAKE, ALERT ABLE TO COMMUNICATE WITH EYE CONTACT AND BLINKING EYES WITH "YES" "NO" QUESTIONS. PT. ADMITTED WITH THIN HEALED SCAR TISSUE TO SACRALCOCCYX AND BILATERAL ISCHIUM. PT. ADMITTED WITH SUPRA PUBIC JESUS MANUEL-STOMA SKIN EROSION 1X2X0.1CM 100% RED GRANULATION TISSUE, MOIST, NO ODOR, JESUS MANUEL-WOUND SKIN DRY INTACT. PT. ADMITTED WITH LOW ROSEANNE SCALE AT HI RISK.POC DISCUSSED WITH PRIMARY RN. RECOMMENDATIONS: -CLEANSE SUPRA PUBIC JESUS MANUEL-STOMA SKIN EROSION WITH NS, PAT DRY, APPLY HYDROCOLLOID DRESSING CHANGE Q72H AND PRN IF SOILING -JESUS MANUEL-CARE Q2H AND PRN IF SOILING, APPLY HYDRAGUARD TO SACRALCOCCYX AND BUTTOCKS COVER WITH FOAM DRESSING QD AND PRN IF SOILING -POSITIONING: TURN AND REPOSITION PATIENT Q 2H OR SOONER USE PILLOWS TO KEEP BONY PROMINENCES FROM DIRECT CONTACT WITH SURFACES USE REPOSITIONING WEDGES TO PROVIDE 30-DEGREE ANGLE FOR SIDE LYING POSITIONS OFFLOADING OR FOAM DRESSING TO ALL TUBING TO PREVENT MEDICAL DEVICES RELATED PRESSURE INJURY -RE-EVALUATING AND MANAGING INCONTINENCE MONITOR SKIN CONDITION DURING POSITION CHANGE DO NOT MASSAGE REDNESS, BONY PROMINENCES FREQUENT JESUS MANUEL-CARE AND PROVIDE BARRIER CREAMS PRN IF SOILING MOISTURE CONTROL BY OFFER BED CAPPS/URINAL /ABSORBENT PAD TO WICK AND HOLD MOISTURE KEEP SKIN DRY AND PROTECT FROM FRICTION -MANAGE FRICTION/SHEAR/MOBILITY KEEP HOB AT THE LOWEST LEVEL OF ELEVATION NO MORE THAN 30 DEGREES UNLESS OTHERWISE CONTRAINDICATED USE LIFT SHEET OR TRANSFER DEVICE TO MOVE PATIENT AND PREVENT LATERAL SHEER. PROTECT HEELS, ELBOWS BONY PROMINENCES WITH SKIN BERRIES OR FOAM DRESSING IF EXPOSED TO FRICTION OFFLOAD BILATERAL HEELS BY PLACING PILLOWS UNDER CALVES AT ALL TIMES, UNLESS OTHERWISE CONTRAINDICATED -PRESSURE REDISTRIBUTION SURFACE THERAPY MANDI ISOFLEX MATTRESS -NUTRITION: PLEASE FOLLOW RD RECOMMENDATIONS AND OFFER NUTRITION SUPPLEMENTS IF ORDERED.
[2021-12-23] MEDS: MAGNESIUM CITRATE 300 ML BTL PO SCH ×2 (12:15→18:08)
[2021-12-23] MEDS ORDERED: POTASSIUM CHLORIDE 20% 40 MEQ/15 ML UDC PO SCH (12:15)
[2021-12-23] MEDS: POTASSIUM CHL 20 MEQ/D5-1/2NS 1,000 ML IV SCH ×2 (12:15→23:03)
[2021-12-23] MEDS ORDERED: POTASSIUM CHLORIDE 10 MEQ TABER PO SCH (12:30)
--- NOTE | 2021-12-23 13:54 | NUR ---
DC PLANN[age] YRS OLD MALE PATIENT WAS ADMITTED FROM [facility] WITH A DX OF SBO. PATIENT HAS A HX OF TACHYCARDIA PACEMAKER ANEMIA, CHRONIC RESP FAILURE TRACH-VENT. CXR SHOWED LOWER LUNG VOLUMES RAPID COVID TEST NEGATIVE. ABD XRAY SHOWED DILATED GAS-FILLED LOOPS OF LARGE BOWEL INCREASED FROM PRIOR EXAM. CONTINUED HOME MEDS. CONSULTED WITH SURGEON, PULMO AND CARDIA. DC PLAN TO RETURN TO [facility] WHEN STABLE. CM TO FOLLOW Addendum: 12/28/21 at 1403 by Natalie Browne RN DC PLANNING: DR LONDON SCHEDULED PATIENT FOR DIVERTING COLOSTOMY ON 12/29/21Tuesday AT 7:30 AM IF PATIENT IS OPTIMIZED. TRACH TO VENT FIO2 40-45% , MDRO OF THE URINE . CM TO FOLLOW Addendum: 12/30/21 at 1129 by Natalie Browne RN DC PLANNING: DR LONDON PERFORMED DIVERTING COLOSTOMY. ON T-V FIO2 45%, CONTINUED AMIKACIN AND ZOSYN IV ABX. ID, PULMO AND CARDIO FOLLOWING. DC PLAN TO RETURN TO [facility] WHEN STABLE. CM TO FOLLOW. Addendum: 01/01/22 at 1545 by Natalie Browne RN DC PLANNING: PATIENT HAS A DC ORDER TO GO BACK TO [facility] CAN GO TO ROOM ARRANGED TRANSPORT WITH [facility] CLIENT PROJECT COORDINATOR TIME 4 PM NOTIFIED FRANCISCO. CM TO FOLLOW
--- NOTE | 2021-12-23 14:10 | NUR ---
CHANGED PT AND LINENS. ALSO CHANGED DRESSING ON SACROCOCCYX. RT AT BEDSIDE MONITORING PT'S O2 SAT.
[2021-12-23] MEDS: HYDROCOLLOID DRESSING TP SCH (14:29)
[2021-12-23] MEDS: FOAM DRESSING TP SCH (14:29)
[2021-12-23] MEDS: HYDRAGUARD CREAM TP SCH (14:29)
[2021-12-23 16:00] VITALS: BP 102/66
--- NOTE | 2021-12-23 18:09 | NUR ---
PT ASLEEP IN BED. NO SOB NOTED, ON TRACH TO VENT SATING AT 95% FLACC O
--- NOTE | 2021-12-23 19:30 | NUR ---
RECEIVED BEDSIDE REPORT FROM DAY SHIFT RN FOR CONTINUITY OF CARE. PT IS ASLEEP. PT IS NOT IN ANY RESPIRATORY DISTRESS. PT IS VENT TO TRACH. SETTINGS: FIO2 60%. VT 500. RT 18, PEEP 5. PT HAS SUPRAPUBIC CATH DRAINING CLEAR YELLOW URINE. PT HAS LEFT HAND 24 GAUGE WITH D5 NS1/2 KCL 20 MEQ RUNNING AT 70 ML/HR. PT HAS SACRAL WOUND. PT HAS HEEL PROTECTORS ON. BED AT THE LOWEST POSITION. HEAD OF BED RAISED. WILL CONTINUE TO MONITOR THE PT.
--- NOTE | 2021-12-23 19:30 | NUR ---
PT ENDORSED TO ECHOCARDIOGRAPHY TECH NURSE. DR MORALES, ANESTHESIOLOGIST, AND RESP THERAPIST SEEING PT.
--- NOTE | 2021-12-23 19:41 | NUR ---
pt asleep in bed. pt stable on vent with fio2 of 60% sating 94%. suctioned small amount of thick yellow secretions. pt scheduled for surgery in the AM. will monitor and continue to lower fio2 as tolerated.
--- NOTE | 2021-12-23 19:50 | NUR ---
SPOKE WITH DR. HUFF ANESTHESIOLOGIST AT BEDSIDE. DR. HUFF WANTS PT TO BE CLEARED BY PULMO AND CARDIO AND HAVE AN ECHO DONE BEFORE THE SURGERY TOMORROW. DR. RIVAS IS CONSULTED AND MESSAGED DR. UGALDE FOR PULMO CONSULT AND REPLIED WITH DR. JERNIGAN. MESSAGED DR. JERNIGAN ABOUT THE PULMO CLEARANCE FOR SURGERY TOMORROW. DOCTOR WILL NOT BE ABLE TO SEE THE PT BEFORE SURGERY TOMORROW. DR. HUFF WANTS CBC AND CHEM 7 IN AM BEFORE SURGERY.
[2021-12-23 20:00] VITALS: BP 112/71
--- NOTE | 2021-12-23 21:24 | NUR ---
SCHEDULE HEPARIN WAS GIVEN. ALL OTHER SCHEDULE MEDS WERE NOT GIVEN DUE TO PT BP IS LOW 96/50. CHECKED IT SEVERAL TIMES AND BP WAS LOW IN THE 90S.
--- NOTE | 2021-12-23 23:07 | NUR ---
GAVE POTASSIUM CHL 20 MEQ IVF @ 2303, RUNNING AT 100ML/HR. GIVEN AFTER PREVIOUS BAG FINISHED. IV WAS PATENT. PATIENT WAS SLEEPING, WITH VENTILATOR RUNNING. WILL CONTINUE TO MONITOR PATIENT
--- NOTE | 2021-12-23 23:30 | NUR ---
DR. HUFF CALLED FOR UPDATE SITUATION ON THE SURGICAL CLEARANCE FOR TOMORROW. TOLD DR. HUFF THAT DR. UGALDE ORDERED CONSULT FOR DR. RIVAS AND DR. JERNIGAN. DR. JERNIGAN WAS MESSAGED AND REPLY THAT HE WILL BE THERE TO SEE THE PT TOMORROW BUT NOT BEFORE THE TIME OF SURGERY. DR. HUFF REQUESTED DR. MCKENZIE THE CEO [employer] PHONE NUMBER. PHONE NUMBER WAS GIVEN.
[2021-12-24] VITALS: BP 116/76
--- NOTE | 2021-12-24 00:31 | NUR ---
MESSAGED DR. RIVAS FOR CARDIO SURGICAL CLEARANCE FOR 0730 SURGERY. WAITING FOR REPLY.
[2021-12-24] MEDS: HYDRAGUARD CREAM TP SCH ×2 (01:29→14:03)
[2021-12-24 04:00] VITALS: BP 132/76
[2021-12-24 04:02] LABS: BASOPHILS # (AUTO) 0.1 K/uL (0.00-0.22); BASOPHILS % (AUTO) 1.4 % (0.0-2.0); EOSINOPHILS # (AUTO) 0.5 K/uL (0-0.4); EOSINOPHILS % (AUTO) 4.5 % (0.0-4.0); HEMATOCRIT 38.4 % (36-52); HEMOGLOBIN 12.5 g/dL (12.0-18.0); LYMPHOCYTES # (AUTO) 1.6 K/uL (2.0-11.5); LYMPHOCYTES % (AUTO) 15.8 % (20.5-51.1); MEAN CORPUSCULAR HEMOGLOBIN 29 pg (27-31); MEAN CORPUSCULAR HGB CONC 33 g/dL (33-37); MEAN CORPUSCULAR VOLUME 87.9 fL (80-94); MONOCYTES # (AUTO) 0.9 K/uL (0.8-1.0); MONOCYTES % (AUTO) 8.3 % (1.7-9.3); NEUTROPHILS # (AUTO) 7.3 K/uL (1.8-7.7); PLATELET COUNT (AUTO) 189 K/uL (140-450); RED BLOOD CELL COUNT(AUTO) 4.36 MIL/uL (4.20-6.10); RED CELL DISTRIBUTION WIDTH 16.9 % (11.6-13.7); WHITE BLOOD COUNT (AUTO) 10.4 K/uL (4.8-10.8)
--- NOTE | 2021-12-24 04:15 | NUR ---
PT WAS CLEANED AND CHANGED. PT HAD A LOOSE BM. RT WAS PRESENT SINCE PT DE-SATS WHEN CHANGING. PT CURRENT FIO2 SETTING IS 100%. PT SATING 91%. WILL CONTINUE TO MONITOR THE PT.
[2021-12-24 04:42] LABS: ANION GAP 10.7 (8-16); CARBON DIOXIDE 27.4 mmol/L (21-32); POTASSIUM 4.1 mmol/L (3.5-5.1)
[2021-12-24 04:43] LABS: CREATININE 0.5 mg/dL (0.6-1.3)
[2021-12-24] MEDS ORDERED: LEVOTHYROXINE 0.025 MG TAB ONE (06:15)
[2021-12-24] MEDS ORDERED: LEVOTHYROXINE 0.112 MG TAB ONE (06:15)
[2021-12-24] MEDS: LEVOTHYROXINE 0.025 MG, LEVOTHYROXINE 0.112 MG GT SCH ×2 (06:27)
--- NOTE | 2021-12-24 06:57 | NUR ---
DR. LONDON CALLED TO SEE IF THE PT IS READY FOR SURGERY. TOLD DR. LONDON PER DOCTOR DARIA, THE PT NEEDS TO BE CLEARED BY PULMO AND CARDIO FOR SURGERY. DR. LONDON SAID THE PT IS CLEARED BY PUMO AND CARDIO SINCE HIS LAST VISIT. TOLD DR. LONDON PT FIO2 IS CURRENTLY 100% WITH 02 SAT 98%. TOLD DR. LONDON THE PT WAS AT FIO2 100% BECAUSE THE PT DE-SATS WHEN CHANGED AND REPOSITION. AND THE FIO2 100% WAS TO BRING HIM BACK UP SINCE THE PT WAS DE-SATING TO 85% O2 SAT. DR. LONDON SAID THE PT CAN'T GO TO SURGERY THAT WAY. HE WANTED TO SPEAK TO RT. RT CAME TO TALK TO DR. LONDON AND EXPLAINED THE SITUATION WITH THE PREVIOUS NIGHT RT. RT TITRATED PT TO 40% WHILE SPEAKING TO THE DOCTOR. RT WILL MONITOR THE PT OXYGEN LEVEL.
--- NOTE | 2021-12-24 07:15 | NUR ---
RECEIVED REPORT FROM NIPPLE MACHINE OPERATOR NURSE: PATIENT AWAKE & ALERT IN BED, SMILES AT INTERACTION. JONATHAN D5 1/2 NS W/ 20MEQ KCL IN PROGRESS VIA LEFT HAND ACCESS SITE AT 100 ML/HOUR. SUPRA PUBIC CATHETER IN PLACE DRAINING YELLOW URINE. [facility] VENTILATOR W/ SETTINGS FIO2-40, VT-500, RATE-18. O2 SAT CURRENTLY AT 94%. PATIENT SHOWS NO BEHAVIORAL SIGNS OF DISCOMFORT. WILL CONTINUE PLAN OF CARE AND MAINTAIN SAFETY.
--- NOTE | 2021-12-24 07:18 | NUR ---
ENDORSED PT TO DAY SHIFT RN FOR CONTINUITY OF CARE. PT IS STABLE.
--- NOTE | 2021-12-24 07:30 | NUR ---
PER CELL LINER NURSE, ANESTHESIOLOGIST DOESN'T WANT TO PROCEED WITH SURGERY DUE TO PT'S OXYGEN SATURATION DROPPING AND WILL TALK TO SURGEON.
[2021-12-24 08:00] VITALS: BP 122/69
--- NOTE | 2021-12-24 08:48 | NUR ---
AWAITING COMMUNICATION RE PT'S SURGERY SCHEDULED FOR TODAY. DAILY ADMIN OF EYE DROPS DONE ORDERED. WILL SEEK CLARIFICATION RE ADMIN OF PO/GT MEDS.
[2021-12-24] MEDS ORDERED: POLYVINYL ALCOHOL 1.4% OP 15 ML SOL OP SCH (09:00)
[2021-12-24] MEDS: PREGABALIN 25 MG CAP GT SCH ×2 (09:00→22:04)
[2021-12-24] MEDS: ZINC SULF 220 MG CAP GT SCH (09:00)
[2021-12-24] MEDS: PANTOPRAZOLE 40 MG TABEC PO SCH (09:00)
[2021-12-24] MEDS: GLYCOPYRROLATE 1 MG TAB GT SCH ×3 (09:00→17:00)
[2021-12-24] MEDS: MAGNESIUM HYDROXIDE 2400 MG/30 ML UDC GT SCH (09:00)
[2021-12-24] MEDS: METOPROLOL 25 MG TAB GT SCH ×2 (09:00→22:03)
[2021-12-24] MEDS: METHADONE 10 MG TAB GT SCH ×2 (09:00→22:05)
[2021-12-24] MEDS: AMIODARONE 200 MG TAB GT SCH (09:00)
[2021-12-24] MEDS: POLYETHYLENE GLYCOL 17 GM/PKT GT SCH (09:00)
[2021-12-24] MEDS: VENLAFAXINE XR 75 MG CAPER PO SCH (09:00)
--- NOTE | 2021-12-24 09:02 | NUR ---
ALL SCHEDULED AM MEDICATIONS HELD, PT FOR POSSIBLE SURGERY
[2021-12-24] MEDS: POTASSIUM CHL 20 MEQ/D5-1/2NS 1,000 ML IV SCH (09:20)
--- NOTE | 2021-12-24 09:30 | NUR ---
PT SEEN BY DR JERNIGAN (ELECTROENCEPHALOGRAM TECHNOLOGIST)
--- NOTE | 2021-12-24 11:32 | NUR ---
CALLED OR AND SPOKE WITH OR STAFF STATED THE ANESTHESIOLOGIST CANCELLED PT'S SURGERY. MOTHER AT BEDSIDE AND ASKING WHEN THE SURGERY WILL BE DONE, LEFT MESSAGE TO DR LONDON.
[2021-12-24 12:00] VITALS: BP 139/85
--- NOTE | 2021-12-24 12:45 | NUR ---
PT SEEN BY DR RIVAS (CLIN ASST)
--- NOTE | 2021-12-24 12:57 | NUR ---
PER DR LONDON DEPENDS ON WHEN PT'S LUNGS CAN BE OPTIMIZED AND SCHEDULE ALLOWS.
--- NOTE | 2021-12-24 13:02 | NUR ---
PT SEEN BY DR LONDON, SURGERY WILL NOT PROCEED TODAY, POSSIBLY NEXT WEEK. PER MD HE WILL CALL FAMILY.
[2021-12-24 13:30] LABS: T4 (THYROXINE) 14.2 ug/dL (4.5 - 12.0)
[2021-12-24] MEDS: FOAM DRESSING TP SCH (14:03)
--- NOTE | 2021-12-24 14:45 | NUR ---
DR MCKENZIE MADE AWARE OF DIETARY RECOMMENDATION FOR GT FEEDING. ALSO MADE AWARE THAT DR LONDON ORDERED DC POTASSIUM-D51/2NS IVF.
--- NOTE | 2021-12-24 15:01 | NUR ---
12/24/21 RD INITIAL ASSESSMENT COMPLETED PLEASE REFER TO NUTRITION ASSESSMENT UNDER CARE ACTIVITY FOR ESTIMATED NUTRITIONAL NEEDS. 1. RECOMMEND OSMOLITE 1.5 WITH A GOAL RATE OF 60 ML/HR -FWF: 200 ML Q6H OR PER MD -START AT 20 ML/HR AND INCREASE BY 20 ML Q4H TOLERATED -WILL PROVIDE 100% OF ESTIMATED NUTRIENT NEEDS 2. MONITOR GI SYMPTOMS 3. RD TO FOLLOW-UP 2-3 DAYS, HIGH RISK AMANDA HUFF RD
[2021-12-24 16:00] VITALS: BP 126/82
--- NOTE | 2021-12-24 16:00 | NUR ---
STARTED PT ON OSMOLITE 1.5 AT 20CC/HR WITH GOAL OF 60CC/HR. WILL INCREASE 20CC/HR Q4H UNTIL GOAL IS REACHED.
--- NOTE | 2021-12-24 19:23 | NUR ---
ENDORSED PT TO BOAT CLEANER NURSE FOR CONTINUITY OF CARE.
--- NOTE | 2021-12-24 19:24 | NUR ---
RECEIVED REPORT FROM AM NURSE. PATIENT IS AWAKE, NON VERBAL. TRACH TO VENT SETTING FIO2 50 VT 500 R 18 PEEP 5 SATING AT 94%. NO S/S OF RESPIRATORY DISTRESS. BREATHING REGULAR NON LABORED. TUBE FEEDING OSMOLITE 1.5 RUNNING AT 20 ML/HR GOAL IS 60 ML. SUPRA PUBIC CATHETER IN PLACE DRAINING CLEAR YELLOW URINE. ALL SAFETY PRECAUTIONS ARE IN PLACE. BED IN SEMI FOWLERS POSITION, WHEELS LOCKED. WILL CONTINUE TO MONITOR.
[2021-12-24 20:00] VITALS: BP 111/72
--- NOTE | 2021-12-24 22:03 | NUR ---
ADMINISTERED ALL 2100 MEDICATIONS PER MD ORDER.
[2021-12-25] VITALS: BP 96/54
[2021-12-25] MEDS: HYDRAGUARD CREAM TP SCH ×2 (01:20→13:25)
[2021-12-25 04:00] VITALS: BP 98/57
--- NOTE | 2021-12-25 04:06 | NUR ---
PATIENT IS AWAKE. NO ACUTE DISTRESS NOTED. RESPIRATION REGULAR UNLABORED. CALL LIGHT ON EASY REACH.
--- NOTE | 2021-12-25 05:39 | NUR ---
CALLED TO BEDSIDE PT DESAT LOW 70s UPON ARRIVAL W/ Sx, TROUBLESHOOTING, AND POSITIONING PT SPO2 SLOWLY CLIMBED TO 87/89% AND APPEARS TO BE STEADILY SLOWLY CLIMBING FIO2 TITRATED TO 60% WELL WILL CONTINUE TO MONITOR
[2021-12-25] MEDS ORDERED: LEVOTHYROXINE 0.112 MG TAB ONE (06:24)
[2021-12-25] MEDS ORDERED: LEVOTHYROXINE 0.025 MG TAB ONE (06:24)
[2021-12-25] MEDS: LEVOTHYROXINE 0.025 MG, LEVOTHYROXINE 0.112 MG GT SCH ×2 (06:30)
--- NOTE | 2021-12-25 07:00 | NUR ---
RECEIVED PT ON PRVC 500, 18, +5, 50%. WHEELS LOCKED AND VENT PLUGGED INTO RED OUTLET, AMBU BAG AT BEDSIDE. ALARMS ARE SET AND AUDIBLE.
--- NOTE | 2021-12-25 07:04 | NUR ---
SYNTHROID NOT GIVEN, RETURNED D/T UNSCHEDULED
--- NOTE | 2021-12-25 07:15 | NUR ---
PATIENT IS STABLE. ENDORSED TO AM NURSE FOR CONTINUITY OF CARE.
[2021-12-25 07:23] LABS: ANION GAP 10.4 (8-16); CARBON DIOXIDE 26.4 mmol/L (21-32); CREATININE 0.5 mg/dL (0.6-1.3); POTASSIUM 3.8 mmol/L (3.5-5.1)
--- NOTE | 2021-12-25 07:30 | NUR ---
RECEIVED REPORT FROM NIGHTSHIFT RN, GAURAV. PT RESPONSIVE TO VERBAL STIMULI. HOB ELEVATED. NO SOB OR RESPIRATORY DISTRESS. TRACH TO VENT. GTUBE FEEDING WITH OSMOLITE @ 60ML/HR WITH WATER FLUSH 200 ML Q.6HR. SUPRAPUBIC CATH VIA GRAVITY. NEEDS ALL MET AT THIS TIME. SAFETY MEASURES IN PLACE.
[2021-12-25 08:00] VITALS: BP 102/73
--- NOTE | 2021-12-25 08:00 | NUR ---
PT WITH 0 RESIDUAL VIA GTUBE. PT TOLERATING GTUBE FEEDING.
[2021-12-25 08:17] LABS: BASOPHILS % (AUTO) 0.3 % (0.0-2.0); EOSINOPHILS # (AUTO) 0.3 K/uL (0-0.4); EOSINOPHILS % (AUTO) 2.3 % (0.0-4.0); HEMATOCRIT 37.1 % (36-52); HEMOGLOBIN 12.2 g/dL (12.0-18.0); LYMPHOCYTES % (AUTO) 8.1 % (20.5-51.1); MEAN CORPUSCULAR HEMOGLOBIN 29 pg (27-31); MEAN CORPUSCULAR HGB CONC 33 g/dL (33-37); MEAN CORPUSCULAR VOLUME 87.3 fL (80-94); MONOCYTES # (AUTO) 0.9 K/uL (0.8-1.0); MONOCYTES % (AUTO) 7.6 % (1.7-9.3); NEUTROPHILS # (AUTO) 9.9 K/uL (1.8-7.7); NEUTROPHILS % (AUTO) 81.7 % (42.2-75.2); PLATELET COUNT (AUTO) 196 K/uL (140-450); RED BLOOD CELL COUNT(AUTO) 4.25 MIL/uL (4.20-6.10); RED CELL DISTRIBUTION WIDTH 16.8 % (11.6-13.7); WHITE BLOOD COUNT (AUTO) 12.1 K/uL (4.8-10.8)
[2021-12-25] MEDS: PREGABALIN 25 MG CAP GT SCH ×2 (08:46→20:53)
[2021-12-25] MEDS: GLYCOPYRROLATE 1 MG TAB GT SCH ×3 (08:46→16:20)
[2021-12-25] MEDS: METHADONE 10 MG TAB GT SCH ×2 (08:47→20:51)
[2021-12-25] MEDS: VENLAFAXINE XR 75 MG CAPER PO SCH (08:47)
[2021-12-25] MEDS: METOPROLOL 25 MG TAB GT SCH ×2 (08:48→21:00)
[2021-12-25] MEDS: AMIODARONE 200 MG TAB GT SCH (08:48)
[2021-12-25] MEDS: PANTOPRAZOLE 40 MG TABEC PO SCH (08:48)
[2021-12-25] MEDS: ZINC SULF 220 MG CAP GT SCH (08:48)
[2021-12-25] MEDS: SCOPOLAMINE 1.5 MG/72 HR PATCH TD SCH (09:00)
[2021-12-25] MEDS: POLYETHYLENE GLYCOL 17 GM/PKT GT SCH (09:00)
[2021-12-25 12:00] VITALS: BP 94/54
--- NOTE | 2021-12-25 12:00 | NUR ---
PT WITH HOB ELEVATED. TRACH TO VENT. FIO2 2 45%, RR 18, PEEP 5, TV 500. O2 SATURATION @ 98% VIA CONTINUOUS PULSE OX. PT WITH NO FACIAL GRIMACE. RESTING COMFORTABLY. GTUBE WITH 0 RESIDUAL. PT TOLERATING FEEDING. NEEDS ALL MET AT THIS TIME SAFETY MEASURES IN PLACE.
[2021-12-25] MEDS ORDERED: SKINTEGRITY HYDROGEL TP SCH (13:00)
[2021-12-25] MEDS ORDERED: HYDRAGUARD CREAM TP SCH (13:00)
[2021-12-25] MEDS ORDERED: NYSTATIN POW 100 MU/GM 15 GM BTL TP SCH (13:00)
[2021-12-25] MEDS: FOAM DRESSING TP SCH (13:25)
[2021-12-25 16:00] VITALS: BP 107/57
--- NOTE | 2021-12-25 17:00 | NUR ---
SUPRAPUBIC CATHETER CARE COMPLETED. BAL STAT LOCK PLACED TO KEEP CATHETER IN PLACE. PARTIAL SPONGE BATH COMPLETED. BILATERAL HEEL PROTECTOR IN PLACE. HOB ELEVATED. PT IN NO DISTRESS. TRACH TO VENT WITH FIO2 @ 45%. 02 SATURATION @ 97%. NEEDS ALL MET AT THIS TIME. SAFETY MEASURES IN PLACE.
--- NOTE | 2021-12-25 19:25 | NUR ---
[facility] SAULTGAURAV JIMENEZ RN.
--- NOTE | 2021-12-25 19:26 | NUR ---
RECEIVED PT FROM MORNING SHIFT RN IRLANDA, PT IS BEDBOUND, APHASIC, CAN BLINK EYES WHEN ANSWERING QUESTIONS, AND SMILE. PT IS TRACH TO VENT WITH FI02 45, VT 500, RATE OF 18 AND PEEP OF 5. PT HAS SUPRA PUBIC CATHETER AND LEFT HAND GAUGE 22 SALINE LOCK. PT HAS SACRAL WOUND HEALING. PT HAS G-TUBE FEEDING BUT TOTALLY EMPTY. PT IS ON CONTACT ISOLATION FOR POSITIVE MDRO URINE. ALL SAFETY MEASURES IMPLEMENTED. CALL LIGHT WITHIN REACH. BED WHEEL LOCK. WILL CONTINUE TO MONITOR.
[2021-12-25 20:00] VITALS: BP 102/58
--- NOTE | 2021-12-25 20:10 | NUR ---
G TUBE FEEDING WAS CHANGE. OSMOLITE 1.5 AT 60 ML/HR FLUSHING WITH WATER 200ML EVERY 6HRS. PT TOLERATE IT WELL. ALL SAFETY MEASURES IMPLEMENTED. CALL LIGHT WITHIN REACH, BED WHEELS LOCK AND LOW BED POSITION. WILL CONTINUE TO MONITOR.
--- NOTE | 2021-12-25 20:51 | NUR ---
SCHEDULE MEDICATION WAS GIVEN PER MD ORDER. PT TOLERATING IT WELL. ALL SAFETY MEASURES IMPLEMENTED. CALL LIGHT WITHIN REACH. WILL CONTINUE TO MONITOR.
--- NOTE | 2021-12-25 20:58 | NUR ---
NOTIFIED DR. UGALDE REGARDING METOPROLOL 25MG DUE TO PT BP 102/58. HE ORDERED TO HOLD METOPROLOL 25MG FOR THIS SHIFT.
--- NOTE | 2021-12-25 22:29 | NUR ---
2222 TRACH CARE DONE. CLEANED INNER CANULA WITH TRACH BRUSH.INNER CANNULA IS STAINED
[2021-12-26] VITALS (7 sets, daily range): BP systolic 94–123; BP diastolic 48–73
--- NOTE | 2021-12-26 | NUR ---
PT IS ON SLEEP. RESPIRATION IS EVEN AND UNLABORED. NO S/S OF DISTRESS NOTED SATING AT 96% WITH NORMAL SINUS RHYTHM. ALL SAFETY MEASURES IMPLEMENTED. CALL LIGHT WITHIN REACH, BED WHEELS ON LOCK. WILL CONTINUE TO MONITOR THE PT.
[2021-12-26] MEDS: HYDRAGUARD CREAM TP SCH ×2 (02:03→13:11)
--- NOTE | 2021-12-26 04:30 | NUR ---
MORNING CARE WAS DONE TO PT. TURNING TO OTHER SIDE. HEAD OF THE BED ELEVATED. ORAL CARE AND SUCTION THE PT. PT TOLERATE IT WELL. ALL SAFETY MEASURES IMPLEMENTED. CALL LIGHT WITHIN REACH. BED WHEEL LOCK AND BED IN LOW POSITION. WILL CONTINUE TO MONITOR THE PT.
--- NOTE | 2021-12-26 05:16 | NUR ---
0500 patient being cleaned and moved. sats dropped to 84%.pt placed on 100% at this time. will titrate fio2 if sats improve
[2021-12-26] MEDS ORDERED: LEVOTHYROXINE 0.025 MG TAB ONE (06:11)
[2021-12-26] MEDS ORDERED: LEVOTHYROXINE 0.112 MG TAB ONE (06:12)
[2021-12-26] MEDS: LEVOTHYROXINE 0.025 MG, LEVOTHYROXINE 0.112 MG GT SCH ×2 (06:16)
--- NOTE | 2021-12-26 06:16 | NUR ---
SCHEDULE MEDICATION WAS GIVEN PER MD ORDER. PT TOLERATING IT WELL. ALL SAFETY MEASURES IMPLEMENTED. CALL LIGHT WITHIN REACH. WILL CONTINUE TO MONITOR.
[2021-12-26 07:02] LABS: BASOPHILS # (AUTO) 0.1 K/uL (0.00-0.22); EOSINOPHILS # (AUTO) 0.4 K/uL (0-0.4); MEAN CORPUSCULAR HEMOGLOBIN 29 pg (27-31); MONOCYTES # (AUTO) 0.8 K/uL (0.8-1.0)
[2021-12-26 07:08] LABS: BASOPHILS % (AUTO) 1.1 % (0.0-2.0); EOSINOPHILS % (AUTO) 4.2 % (0.0-4.0); LYMPHOCYTES # (AUTO) 1.6 K/uL (2.0-11.5); LYMPHOCYTES % (AUTO) 15.4 % (20.5-51.1); MEAN CORPUSCULAR HGB CONC 33 g/dL (33-37); MEAN CORPUSCULAR VOLUME 87.6 fL (80-94); MONOCYTES % (AUTO) 8.1 % (1.7-9.3); NEUTROPHILS # (AUTO) 7.2 K/uL (1.8-7.7); NEUTROPHILS % (AUTO) 71.2 % (42.2-75.2); PLATELET COUNT (AUTO) 203 K/uL (140-450); RED BLOOD CELL COUNT(AUTO) 4.11 MIL/uL (4.20-6.10); RED CELL DISTRIBUTION WIDTH 17.1 % (11.6-13.7); WHITE BLOOD COUNT (AUTO) 10.1 K/uL (4.8-10.8)
--- NOTE | 2021-12-26 07:27 | NUR ---
PT IS STABLE. ENDORSED PT TO MORNING SHIFT NURSE FOR CONTINUITY OF CARE.
[2021-12-26 07:29] LABS: ANION GAP 14.4 (8-16); CARBON DIOXIDE 24.4 mmol/L (21-32); CREATININE 0.5 mg/dL (0.6-1.3); POTASSIUM 3.8 mmol/L (3.5-5.1)
--- NOTE | 2021-12-26 07:30 | NUR ---
RECEIVED REPORT FROM RETAIL ANALYTICS MANAGER. PATIENT IS AWAKE, NON VERBAL. TRACH TO VENT SETTING FIO2 45 VT 500 R 18 PEEP 5 SATING AT 97%. NO S/S OF RESPIRATORY DISTRESS. BREATHING REGULAR NON LABORED. TUBE FEEDING OSMOLITE 1.5 RUNNING AT 60 ML/HR. SUPRA PUBIC CATHETER IN PLACE DRAINING CLEAR YELLOW URINE. ALL SAFETY PRECAUTIONS ARE IN PLACE. BED IN SEMI FOWLERS POSITION, WHEELS LOCKED. WILL CONTINUE TO MONITOR.
[2021-12-26] MEDS ORDERED: PANTOPRAZOLE 40 MG INJ VIAL ONE (08:18)
[2021-12-26] MEDS: GLYCOPYRROLATE 1 MG TAB GT SCH ×3 (08:45→16:59)
[2021-12-26] MEDS: VENLAFAXINE XR 75 MG CAPER PO SCH (08:45)
[2021-12-26] MEDS: MAGNESIUM HYDROXIDE 2400 MG/30 ML UDC GT SCH (08:45)
[2021-12-26] MEDS: METHADONE 10 MG TAB GT SCH ×2 (08:45→21:42)
[2021-12-26] MEDS: POLYETHYLENE GLYCOL 17 GM/PKT GT SCH (08:45)
[2021-12-26] MEDS: AMIODARONE 200 MG TAB GT SCH (08:45)
[2021-12-26] MEDS: PREGABALIN 25 MG CAP GT SCH ×2 (08:45→21:42)
[2021-12-26] MEDS: ZINC SULF 220 MG CAP GT SCH (08:45)
[2021-12-26] MEDS: METOPROLOL 25 MG TAB GT SCH ×2 (08:45→21:42)
[2021-12-26] MEDS: HYDROCOLLOID DRESSING TP SCH (08:46)
[2021-12-26] MEDS: PANTOPRAZOLE 40 MG INJ VIAL IVP SCH (08:47)
--- NOTE | 2021-12-26 08:50 | NUR ---
due meds given. tolerated well. oral care done
--- NOTE | 2021-12-26 10:38 | NUR ---
RESTING WELL STABLE EQUAL CHEST RISE DEEP TRACHEAL SUCTION FOR MODERATE THIN YELLOW SECRETIONS AIRWAY PATENT
--- NOTE | 2021-12-26 10:40 | NUR ---
TITRATED FIO2 TO 40% EDWAR/RN NOTIFIED
--- NOTE | 2021-12-26 11:40 | NUR ---
SISTER GURDEEP CALLED, UPDATE GIVEN
[2021-12-26] MEDS: FOAM DRESSING TP SCH (13:10)
--- NOTE | 2021-12-26 14:30 | NUR ---
JESUS MANUEL CARE DONE, WOUND CARE DONE, TURNED AND REPOSITIONED
--- NOTE | 2021-12-26 16:00 | NUR ---
NO RESPIRATORY DISTRESS, FLACC 0
--- NOTE | 2021-12-26 16:43 | NUR ---
[facility]; ROUTINE ABG
--- NOTE | 2021-12-26 17:23 | NUR ---
RESTING WELL NO DISTRESS NOTED GOOD CHEST RISE; ABG ATTEMPT X 4; WILL ENDORSE TO NOC CARDIAC CATH TECHNOLOGIST
--- NOTE | 2021-12-26 18:06 | NUR ---
RESPIRATION IS EVEN AND UNLABORED. NO S/S OF DISTRESS NOTED
--- NOTE | 2021-12-26 19:30 | NUR ---
BEDSIDE ENDORSEMENT GIVEN BY MARKEL VANN DAY SHIFT FOR CONTINUITY OF CARE. PATIENT SLEEPING. TRACH TO VENT, SETTING AC PRVC FIO2 40%, VT 500, RATE 18, PEEP 5. NO S/S OF RESPIRATORY DISTRESS. BREATHING NORMAL. SYMMETRICAL RISE AND FALL OF CHEST. TUBE FEEDING OSMOLITE 1.5 AT 60 ML/HR TOLERATING WELL. SUPRAPUBIC IN PLACE DRAINING DARK JIMBO COLOR URINE. ALL SAFETY MEASURES ARE IN PLACE. WHEELS OF B ED LOCKED. WILL CONTINUE TO MONITOR.
--- NOTE | 2021-12-26 21:42 | NUR ---
ALL 2100 MEDICATIONS ADMINISTERED ORDERED. V/S: 123/73, 88, 21, 98.6, 96%.
[2021-12-27] VITALS: BP 102/61
[2021-12-27] MEDS: HYDRAGUARD CREAM TP SCH ×2 (01:00→14:33)
--- NOTE | 2021-12-27 03:12 | NUR ---
PATIENT IS SLEEPING. NO S/S OF RESPIRATORY DISTRESS. BREATHING REGULAR UNLABORED. SUCTIONED PRN.
[2021-12-27 04:00] VITALS: BP 97/48
--- NOTE | 2021-12-27 07:12 | NUR ---
SBAR report received from Gayla JEAN BAPTISTE, all cares assumed. Pt resting in bed with eyes closed. Bed in low and locked position.
[2021-12-27] MEDS ORDERED: LEVOTHYROXINE 0.112 MG TAB ONE (07:21)
[2021-12-27] MEDS ORDERED: LEVOTHYROXINE 0.025 MG TAB ONE (07:21)
[2021-12-27] MEDS: LEVOTHYROXINE 0.025 MG, LEVOTHYROXINE 0.112 MG GT SCH ×2 (07:22)
--- NOTE | 2021-12-27 07:39 | NUR ---
PATIENT IS STABLE. REPORT GIVEN TO DAY SHIFT NURSE FOR CONTINUITY OF CARE.
[2021-12-27 07:44] LABS: ANION GAP 13.3 (8-16); CARBON DIOXIDE 25.2 mmol/L (21-32); CREATININE 0.5 mg/dL (0.6-1.3); POTASSIUM 4.5 mmol/L (3.5-5.1)
[2021-12-27 07:52] LABS: HEMATOCRIT 36.1 % (36-52); HEMOGLOBIN 12.1 g/dL (12.0-18.0); MEAN CORPUSCULAR HEMOGLOBIN 29 pg (27-31); MEAN CORPUSCULAR HGB CONC 33 g/dL (33-37); MEAN CORPUSCULAR VOLUME 87.5 fL (80-94); PLATELET COUNT (AUTO) 216 K/uL (140-450); RED BLOOD CELL COUNT(AUTO) 4.12 MIL/uL (4.20-6.10); RED CELL DISTRIBUTION WIDTH 16.7 % (11.6-13.7)
[2021-12-27 08:00] VITALS: BP 93/62
[2021-12-27] MEDS: VENLAFAXINE XR 75 MG CAPER PO SCH (08:11)
[2021-12-27] MEDS: GLYCOPYRROLATE 1 MG TAB GT SCH ×3 (08:12→17:31)
[2021-12-27] MEDS: METHADONE 10 MG TAB GT SCH ×2 (08:12→21:00)
[2021-12-27] MEDS: AMIODARONE 200 MG TAB GT SCH (08:12)
[2021-12-27] MEDS: ZINC SULF 220 MG CAP GT SCH (08:12)
[2021-12-27] MEDS: PREGABALIN 25 MG CAP GT SCH ×2 (08:13→21:00)
[2021-12-27] MEDS: POLYETHYLENE GLYCOL 17 GM/PKT GT SCH (08:14)
[2021-12-27] MEDS: PANTOPRAZOLE 40 MG INJ VIAL IVP SCH (08:14)
[2021-12-27] MEDS: METOPROLOL 25 MG TAB GT SCH ×2 (09:00→21:00)
[2021-12-27 09:54] LABS: BASOPHILS # (AUTO) 0.1 K/uL (0.00-0.22); BASOPHILS % (AUTO) 0.5 % (0.0-2.0); EOSINOPHILS # (AUTO) 0.6 K/uL (0-0.4); LYMPHOCYTES # (AUTO) 1.6 K/uL (2.0-11.5); LYMPHOCYTES % (AUTO) 10.2 % (20.5-51.1); LYMPHOCYTES % (MANUAL) 13 % (20-46); MONOCYTES # (AUTO) 1.1 K/uL (0.8-1.0); MONOCYTES % (AUTO) 7.3 % (1.7-9.3); MONOCYTES % (MANUAL) 10 % (5-12); NEUTROPHILS # (AUTO) 11.9 K/uL (1.8-7.7); PLATELET COUNT,MANUAL 199 K/uL (150-450)
[2021-12-27 09:55] LABS: EOSINOPHILS % (MANUAL) 1 % (0-4)
[2021-12-27] MEDS ORDERED: AMIKACIN PER PHARMACY MC PRN (11:30)
[2021-12-27 12:00] VITALS: BP 102/71
[2021-12-27] MEDS ORDERED: AMIKACIN 600 MG in DEXTROSE 5% 100 ML IV SCH (13:30)
[2021-12-27] MEDS: FOAM DRESSING TP SCH (14:33)
[2021-12-27 16:00] VITALS: BP 107/62
--- NOTE | 2021-12-27 16:05 | NUR ---
12/27/21 RD FOLLOW UP COMPLETED. PLEASE REFER TO NUTRITION ASSESSMENT UNDER CARE ACTIVITY FOR ESTIMATED NUTRITIONAL NEEDS. 1. CONTINUE OSMOLITE 1.5 WITH A GOAL RATE OF 60 ML/HR PT TOLERATES -FWF: 200 ML Q6H OR PER MD -WILL PROVIDE 100% OF ESTIMATED NUTRIENT NEEDS 2. MONITOR GI SYMPTOMS 3. RD TO FOLLOW-UP 2-3 DAYS, HIGH RISK JOSE KENNEDY RD
--- NOTE | 2021-12-27 19:29 | NUR ---
SBAR REPORT GIVEN TO SURY JEAN BAPTISTE, ALL CARES ENDORSED.
[2021-12-27 20:00] VITALS: BP 97/50
[2021-12-28] VITALS (9 sets, daily range): BP systolic 86–118; BP diastolic 50–79
[2021-12-28] MEDS: HYDRAGUARD CREAM TP SCH ×2 (01:00→13:49)
[2021-12-28] MEDS ORDERED: LEVOTHYROXINE 0.025 MG TAB ONE (05:42)
[2021-12-28] MEDS ORDERED: LEVOTHYROXINE 0.112 MG TAB ONE (05:43)
[2021-12-28] MEDS: LEVOTHYROXINE 0.025 MG, LEVOTHYROXINE 0.112 MG GT SCH ×2 (06:11)
--- NOTE | 2021-12-28 07:15 | NUR ---
RECEIVED REPORT FROM STILL TENDER NURSE FOR CONTINUITY OF CARE. PT ASLEEP IN BED. ON TRACH TO VENT WITH SETTINGS FIO2 45% PEEP 7, VT 500 RATE 18 PT SATING BETWEEN 86-88% RT IS BEING CALLED TO BEDSIDE. DAISHA O. RIGHT HAND 24G ON SALINE LOCK. GT IN PLACE WITH OSMOLITE 1.5 AT 60CC/HR. ALL SAFETY MEASURES IN PLACE. Addendum: 12/28/21 at 0735 by Jossy Link RN SUPRAPUBIC CATHETER IN PLACE DRAINING YELLOW URINE
[2021-12-28 07:17] LABS: ANION GAP 12.1 (8-16); CARBON DIOXIDE 24.6 mmol/L (21-32); CREATININE 0.4 mg/dL (0.6-1.3); POTASSIUM 3.7 mmol/L (3.5-5.1)
--- NOTE | 2021-12-28 08:10 | NUR ---
RECEIVED ON A [employer] R860 VENTILATOR PLUGGED INTO RED OUTLET TOLERATING WELL WITHOUT ADVERSE REACTIONS NOTED TO A SHILEY XLT #8 AIRWAY SECURED WITH A HAYLEY TRACH TIE CUFF PRESSURE CHECKED NOTED AMBU BAG AT BEDSIDE; REVIEWED CURRENT VENTILATOR SETTING AND OXYGEN SATURATION; REVIEWED CXR IMPRESSION DATED 12/27/2021 AT 1623; REVIEWED B/P WITH ELLYN/RN AND ARSLAN/RESTAURANT EXPEDITOR SYSTOLIC GREATER THAN 100mmHg; EQUAL CHEST RISE DEEP TRACHEAL SUCTION FOR LARGE THIN YELLOW SECRETIONS AIRWAY PATENT; INCREASED Vt TO 550ml (7.5ml/kg); INCREASED FIO2 TO 50% KEEP SATURATION GREATER THAN 90%; INCREASED PEEP TO 8cmH2O (ARDS PROTOCOL) STEWARD/STEWARDESS BANQUET TO MONITOR; ELLYN/RN NOTIFIED OF VENTILATOR SETTINGS
--- NOTE | 2021-12-28 08:15 | NUR ---
RT AT BEDSIDE, PT'S CURRENT VENT SETTINGS FIO2 50% PEEP 8 VT 550 RATE 18 DUE TO PT'S LOW O2 SATURATION FROM PREVIOUS SETTINGS. WILL CONTINUE TO MONITOR.
[2021-12-28] MEDS: MAGNESIUM HYDROXIDE 2400 MG/30 ML UDC GT SCH (08:32)
[2021-12-28] MEDS: PANTOPRAZOLE 40 MG INJ VIAL IVP SCH (08:32)
[2021-12-28] MEDS: POLYETHYLENE GLYCOL 17 GM/PKT GT SCH (08:32)
[2021-12-28] MEDS: METOPROLOL 25 MG TAB GT SCH ×2 (08:33→20:49)
[2021-12-28] MEDS: ZINC SULF 220 MG CAP GT SCH (08:33)
[2021-12-28] MEDS: GLYCOPYRROLATE 1 MG TAB GT SCH ×3 (08:33→17:18)
[2021-12-28] MEDS: AMIODARONE 200 MG TAB GT SCH (08:33)
[2021-12-28] MEDS: VENLAFAXINE XR 75 MG CAPER PO SCH (08:33)
[2021-12-28] MEDS: PREGABALIN 25 MG CAP GT SCH ×2 (08:34→20:50)
[2021-12-28] MEDS: METHADONE 10 MG TAB GT SCH ×2 (08:35→20:49)
--- NOTE | 2021-12-28 08:35 | NUR ---
SCHEDULED AM MEDICATIONS GIVEN ORDERED.
[2021-12-28] MEDS: SCOPOLAMINE 1.5 MG/72 HR PATCH TD SCH (09:36)
--- NOTE | 2021-12-28 10:28 | NUR ---
RESTING COMFORTABLY GOOD CHEST RISE DEEP TRACHEAL SUCTION FOR MODERATE THIN PALE YELLOW SECRETIONS AIRWAY PATENT SATURATION 97% ON FIO2 OF 50% PEEP 8cmH2O TITRATED FIO2 TO 45% ELLYN/RN NOTIFIED
--- NOTE | 2021-12-28 11:23 | NUR ---
REVIEWED WITH DR. RIVKA JERNIGAN PATIENT PULMONARY STATUS - RHONCHI WITH Q2 SUCTIONING, CXR IMPRESSION DATED 12/27/2021 AT 1623; VENTILATOR SETTINGS PRVC R16 VT550 P8 50% - CHANGES NECESSITATED NOTED AT [address] JERNIGAN: HHN THERAPY WITH DUONEB Q6 AND Q4PRN FOR SOB; SPUTUM SAMPLE FOR C & S
[2021-12-28] MEDS ORDERED: ALBUTEROL SULFATE/IPRATROPIU 3 ML SOL IH PRN (11:45)
--- NOTE | 2021-12-28 11:54 | NUR ---
SPOKE WITH DR LONDON, UPDATED REGARDING PT'S CURRENT VENT SETTINGS. PER MD TO TURN OFF TUBE FEEDING AT 0300 AND MAY GIVE MEDS. PT TENTATIVE TO HAVE SURGERY TOMORROW AT NOON PER DR LONDON IF PT REMAINS STABLE. MOTHER AT BEDSIDE AND MADE AWARE.
--- NOTE | 2021-12-28 12:00 | NUR ---
DISCHARGE PLANNING LATE ENTRY PATIENT IS A 26 YEAR OLD MALE ADMITTED IN THE [facility]/ED ON 12/22/2021 DUE TO PATIENT FOUND TO HAVE SBO AND SCHEDULED FOR A DIVERTING COLOSTOMY BY DR. MARLI LONDON ON 12/24/2021. PATIENT'S LAST HOSPITALIZATION AT [facility] WAS FROM 10/24/2021 TO [place]04/20[place] [facility]IENT IS VENT DEPENDENT WITH MEDICAL HISTORY OF CHRONIC RESPIRATORY FAILURE, ANEMIA, AND PACEMAKER. PATIENT WAS UNABLE TO COMMUNICATE WITH SW DURING ASSESSMENT HOWEVER ON 12/28/2021 SW MET WITH PATIENT'S MOTHER RANJAN BYRD (MRS. BYRD IS CROATIAN SPEAKING ONLY). SW MEET WITH PATIENT AND MOTHER RANJAN BYRD AT BEDSIDE TO DISCUSS AND GATHER HIS UPDATED COLLATERAL INFORMATION. PATIENT WAS SLEEPING DURING THE VISIT AND MOTHER WAS ABLE TO PROVIDE ALL HIS INFORMATION. PER MRS. BYRD PATIENT HAS GOOD FAMILY SUPPORT FROM HIS PARENTS AND OLDER SIBLINGS. PARENTS ARE VERY INVOLVED ON HIS CARE EVEN THOUGHT PATIENT IS CURRENTLY RESIDING AT ([facility])SUB-ACUTE FACILITY IN [facility]. PER MRS. BYRD THE FAMILY LIVES ABOUT 40 MINUTES AWAY HOWEVER; THEY MANAGED TO VISIT PATIENT REGULARLY. PATIENT HAS BOTH OF HIS PARENT'S HIS POA'S AND THEY ARE HIS EMERGENCY CONTACTS AND MEDICAL DECISION MAKERS. [place] HAS AND WILL PROVIDE COPY OF ALL DOCUMENTATION NEEDED DURING ADMISSION. PATIENT HAS NO ISSUES WITH MEDICATIONS AND HIS DME IS PROVIDED AT [facility] PER MRS. BYRD PATIENT AND FAMILY ARE VERY SATISFIED WITH THE CARE PATIENT IS GETTING AT [facility] AND HE WILL BE RETURNING TO [facility] WHEN HE IS DC FROM [facility]. SW OFFER RESOURCES TO MRS. BYRD AND SHE WAS APPRECIATIVE. SW CALLED [facility] [place] SPOKE TO GABBIE ABOUT PATIENT AND HIS ADMISSION AT [facility] DISCUSS DISCHARGE PLANNING AND SHE CONFIRM THAT PATIENT WILL BE ABLE TO RETURN TO [facility] WHEN HE IS READY FOR DISCHARGE. SW WILL FOLLOW UP NEEDED.
--- NOTE | 2021-12-28 13:05 | NUR ---
WOUND CARE RE-EVALUATION NOTE: SUPRA PUBIC JESUS MANUEL-STOMA SKIN EROSION NO CHANGE OF CONDITION. NO S/S OF INFECTION.PLAN FOR PT. WITH DIVERTING COLOSTOMY THIS WEEK. PT. IS AT STABLE CONDITION THIS TIME. -HEALED SCAR TISSUE TO SACRALCOCCYX AND BILATERAL ISCHIUM -INCONTINENT ASSOCIATED DERMATITIS TO BILATERAL BUTTOCKS SKIN MOIST AND RED, Z GUARD APPLIED -SUPRA PUBIC JESUS MANUEL-STOMA SKIN EROSION 1X2X0.1CM 100% RED GRANULATION TISSUE, MOIST, NO ODOR, JESUS MANUEL-WOUND SKIN DRY INTACT.
--- NOTE | 2021-12-28 13:33 | NUR ---
REQUEST FOR INFANTRY ASSAULTMAN STANDBY BY ELLYN/MARKEL AND ARSLAN/MARYAN DURING PATIENT PHYSICAL HYGIENE AND REPOSITION PAST HISTORY OF DESCENDING SATURATION DURING THIS TIME; INCREASED FIO2 TO 100% DURING PROCEDURE SATURATION 98%-100% DECREASED TO 45% POST PROCEDURE TOLERATED WELL WITHOUT COMPLICATIONS
[2021-12-28] MEDS: ALBUTEROL SULFATE/IPRATROPIU 3 ML SOL IH SCH ×2 (13:36→19:02)
--- NOTE | 2021-12-28 13:48 | NUR ---
RESTING WELL GOOD CHEST RISE DEEP TRACHEAL SUCTION FOR MODERATE SEMI THICK GREEN SECRETIONS SPUTUM SAMPLE OBTAINED FOR C&S SAMPLE FORWARDED TO LAB AIRWAY PATENT SYSTOLIC BLOOD PRESSURE 86-90 mmHg DECREASED PEEP TO 5cmH2O ELLYN/RN NOTIFIED OF CHANGE IN PEEP; RN TO CONTACT DR UGALDE FOR FURTHER ORDERS
[2021-12-28] MEDS: FOAM DRESSING TP SCH (13:49)
--- NOTE | 2021-12-28 14:51 | NUR ---
NOTED PT'S BP LOW 83/40. LEFT MESSAGE TO DR UGALDE. WILL CONTINUE TO MONITOR
[2021-12-28] MEDS ORDERED: NACL 0.9% 500 ML IV SCH (15:00)
[2021-12-28] MEDS ORDERED: VANCOMYCIN PER PHARMACY MC PRN (15:05)
--- NOTE | 2021-12-28 15:05 | NUR ---
DR UGALDE AT BEDSIDE, SEEN AND EXAMINED PT WITH NEW ORDERS MADE
--- NOTE | 2021-12-28 15:52 | NUR ---
PT'S WEIGHT CURRENTLY SHOWS 92LBS. UNABLE TO RE-CHECK PT'S WEIGHT ON THE BED. PER PT'S H AND P ON SNF PT'S 235LBS. PHARMACY MADE AWARE.
[2021-12-28 16:02] LABS: ANION GAP 12.6 (8-16); CARBON DIOXIDE 23.5 mmol/L (21-32); CREATININE 0.4 mg/dL (0.6-1.3); POTASSIUM 4.1 mmol/L (3.5-5.1)
[2021-12-28 16:03] LABS: BASOPHILS # (AUTO) 0.1 K/uL (0.00-0.22); BASOPHILS % (AUTO) 0.6 % (0.0-2.0); EOSINOPHILS # (AUTO) 0.4 K/uL (0-0.4); EOSINOPHILS % (AUTO) 2.9 % (0.0-4.0); HEMATOCRIT 36.8 % (36-52); LYMPHOCYTES % (AUTO) 7.4 % (20.5-51.1); MEAN CORPUSCULAR HEMOGLOBIN 29 pg (27-31); MEAN CORPUSCULAR HGB CONC 33 g/dL (33-37); MEAN CORPUSCULAR VOLUME 87.7 fL (80-94); MONOCYTES # (AUTO) 1.1 K/uL (0.8-1.0); MONOCYTES % (AUTO) 7.9 % (1.7-9.3); NEUTROPHILS % (AUTO) 81.2 % (42.2-75.2); RED CELL DISTRIBUTION WIDTH 16.7 % (11.6-13.7); WHITE BLOOD COUNT (AUTO) 13.5 K/uL (4.8-10.8)
[2021-12-28 16:07] LABS: PLATELET COUNT (AUTO) 142 K/uL (140-450)
[2021-12-28] MEDS: PIPERACILLIN/TAZOBACTAM 3.375 GM in DEXTROSE 5% 50 ML IV SCH (16:22)
--- NOTE | 2021-12-28 16:28 | NUR ---
NO DISTRESS NOTED GOOD CHEST RISE AND AERATION THROUGHOUT BILATERAL LUNG COPE AIRWAY PATENT SATURATION 96% ON FIO2 OF 45% PEEP 5cmH2O TITRATED FIO2 TO 40% ELLYN/RN NOTIFIED
--- NOTE | 2021-12-28 16:42 | NUR ---
LEFT MESSAGE TO DR MOLINA REGARDING CONSULT.
--- NOTE | 2021-12-28 17:43 | NUR ---
STABLE EQUAL CHEST RISE SATURATION 92% ON FIO2 OF 40% PEEP 5cmH2O INCREASED FIO2 45% ELLYN/RN NOTIFIED DEEP TRACHEAL SUCTION FOR MODERATE SEMI THICK GREEN SECRETIONS AIRWAY SECRETIONS
[2021-12-28] MEDS ORDERED: VANCOMYCIN 1,500 MG in DEXTROSE 5% 500 ML IV SCH (18:00)
--- NOTE | 2021-12-28 19:25 | NUR ---
ENDORSED PT TO CONSUMER SAFETY INSPECTOR NURSE FOR CONTINUITY OF CARE. ALSO ENDORSED TO TURN OFF GT FEEDING AT [address] LONDON.
--- NOTE | 2021-12-28 19:26 | NUR ---
RECEIVED BEDSIDE REPORT FROM DAY SHIFT NURSE FOR CONTINUITY OF PT CARE.
[2021-12-28] MEDS ORDERED: AMIKACIN IV SCH (21:00)
[2021-12-28] MEDS ORDERED: DEXTROSE 5% IV SCH (21:00)
--- NOTE | 2021-12-28 23:15 | NUR ---
DR. HUFF CALLED AND PLACE LAB ORDER FOR CBC AND CHEM 7.
[2021-12-29] VITALS (8 sets, daily range): BP systolic 78–115; BP diastolic 39–79
[2021-12-29] MEDS: ALBUTEROL SULFATE/IPRATROPIU 3 ML SOL IH SCH ×4 (00:47→19:00)
[2021-12-29] MEDS: PIPERACILLIN/TAZOBACTAM 3.375 GM in DEXTROSE 5% 50 ML IV SCH ×4 (00:54→17:52)
[2021-12-29] MEDS: HYDRAGUARD CREAM TP SCH ×2 (01:15→13:00)
--- NOTE | 2021-12-29 03:58 | NUR ---
trach care done. placed new trach tie on patient. pt has a wound on back of neck. rn aware
--- NOTE | 2021-12-29 04:00 | NUR ---
FOUND IV IS DISLODGED.
--- NOTE | 2021-12-29 06:00 | NUR ---
UNABLE TO ADMINISTERED ZOSYN PER IV, NO IV ACCESS.
[2021-12-29] MEDS: LEVOTHYROXINE 0.025 MG, LEVOTHYROXINE 0.112 MG GT SCH ×2 (06:30)
--- NOTE | 2021-12-29 06:30 | NUR ---
SYNTHROID NOT ADMINISTERED, PT IS NPO FOR SURGERY.
--- NOTE | 2021-12-29 07:03 | NUR ---
RECEIVED ON A [employer] R860 VENTILATOR PLUGGED INTO REDOUTLET TOLERATING WELL WITHOUT ADVERSE REACTIONS NOTED TO A SHILEY XLT #8 AIRWAY SECURED WITH A HAYLEY TRACH TIE CUFF PRESSURE CHECKED NOTED AMBU BAG AT BEDSIDE LOC AWAKE AND ALERT RESPONSIVE VIA FACIAL EXPRESSION TO LASTING ROOM MACHINE OPERATOR VERBAL COMMANDS STABLE EQUAL CHEST RISE DEEP TRACHEAL SUCTION FOR LARGE THIN YELLOW/GREEN SECRETIONS AIRWAY PATENT
[2021-12-29 07:18] LABS: BASOPHILS % (AUTO) 0.2 % (0.0-2.0); EOSINOPHILS # (AUTO) 0.2 K/uL (0-0.4); EOSINOPHILS % (AUTO) 1.2 % (0.0-4.0); HEMATOCRIT 34.1 % (36-52); HEMOGLOBIN 11.2 g/dL (12.0-18.0); LYMPHOCYTES # (AUTO) 0.9 K/uL (2.0-11.5); LYMPHOCYTES % (AUTO) 6.7 % (20.5-51.1); MEAN CORPUSCULAR HEMOGLOBIN 29 pg (27-31); MEAN CORPUSCULAR HGB CONC 33 g/dL (33-37); MEAN CORPUSCULAR VOLUME 86.9 fL (80-94); MONOCYTES # (AUTO) 0.8 K/uL (0.8-1.0); MONOCYTES % (AUTO) 6.2 % (1.7-9.3); NEUTROPHILS # (AUTO) 11.1 K/uL (1.8-7.7); NEUTROPHILS % (AUTO) 85.7 % (42.2-75.2); PLATELET COUNT (AUTO) 161 K/uL (140-450); RED BLOOD CELL COUNT(AUTO) 3.92 MIL/uL (4.20-6.10); RED CELL DISTRIBUTION WIDTH 16.5 % (11.6-13.7); WHITE BLOOD COUNT (AUTO) 12.9 K/uL (4.8-10.8)
[2021-12-29 07:25] LABS: CREATININE 0.5 mg/dL (0.6-1.3)
--- NOTE | 2021-12-29 07:41 | NUR ---
RECEIVED REPORT FROM PLATE TAKE OUT WORKER NURSE FOR CONTINUITY OF CARE. PT AWAKE IN BED. ON TRACH TO VENT WITH SETTING FIO2 45% PEEP 5 VT 550 RATE 18 SATING AT 93% PER REPORT PT'S SYSTOLIC BP WAS IN THE 70s EARLIER, BP IS 86/33. ALSO TUBE FEEDING WAS TURNED OFF AT 4AM INSTEAD OF 3AM, NOC SHIFT NURSE MADE DR LONDON AWARE. PT ON LOW INTERMITTENT SUCTION ON GT AT THIS TIME. GT IN PLACE BUT TUBE FEEDING IS OFF AND DISCONNECTED FROM PT. SUPRAPUBIC CATHETER INTACT AND PATENT DRAINING YELLOW CLOUDY URINE. PT ALSO HAS NO IV LINE. ALL SAFETY MEASURES IN PLACE.
[2021-12-29] MEDS: METHADONE 10 MG TAB GT SCH ×2 (09:00→21:00)
[2021-12-29] MEDS: HYDROCOLLOID DRESSING TP SCH (09:00)
[2021-12-29] MEDS: ZINC SULF 220 MG CAP GT SCH (09:00)
[2021-12-29] MEDS: AMIODARONE 200 MG TAB GT SCH (09:00)
[2021-12-29] MEDS: METOPROLOL 25 MG TAB GT SCH (09:00)
[2021-12-29] MEDS: GLYCOPYRROLATE 1 MG TAB GT SCH ×3 (09:00→16:28)
[2021-12-29] MEDS: VENLAFAXINE XR 75 MG CAPER PO SCH (09:00)
[2021-12-29] MEDS: POLYETHYLENE GLYCOL 17 GM/PKT GT SCH (09:00)
[2021-12-29] MEDS: PANTOPRAZOLE 40 MG INJ VIAL IVP SCH (09:00)
--- NOTE | 2021-12-29 09:12 | NUR ---
RESTING COMFORTABLY NO DISTRESS NOTED GOOD CHEST RISE DEEP TRACHEAL SUCTION FOR LARGE THIN YELLOW/GREEN SECRETIONS AIRWAY PATENT
--- NOTE | 2021-12-29 10:55 | NUR ---
ALL SCHEDULED AM MEDICATIONS VIA GT HELD. PT FOR POSSIBLE SURGERY TODAY AT NOON. PT ALSO DOESN'T HAVE IV ACCESS, UNABLE TO INSERT LINE.
--- NOTE | 2021-12-29 11:15 | NUR ---
IV LINE INSERTED ON RIGHT THUMB 24G Addendum: 12/29/21 at 1129 by Jossy Lillian Fariba RN CORRECTION 22G
--- NOTE | 2021-12-29 11:41 | NUR ---
DUE TO PENDING SURGERY AT 12 NOON HHN THERAPY SCHEDULED FOR 1300 GIVEN AT THIS TIME
--- NOTE | 2021-12-29 11:41 | NUR ---
STABLE RESTING WELL EQUAL CHEST RISE DEEP TRACHEAL SUCTION FOR MODERATE THIN YELLOW/GREEN SECRETIONS AIRWAY PATENT SYSTOLIC PRESSURE GREATER THAN 100mmHg INCREASED PEEP TO 6cmH2O (ARDS PROTOCOL 40%-50%; PEEP 5-8cmH2O) EXTENSION CLERK TO MONITOR Addendum: 12/29/21 at 1502 by Jules Madera RT ELLYN/MARKEL NOTIFIED OF INCREASE IN PEEP
--- NOTE | 2021-12-29 11:55 | NUR ---
PT SEEN BY DR RIVAS
[2021-12-29] MEDS: FOAM DRESSING TP SCH (13:00)
[2021-12-29] MEDS ORDERED: LIDOCAINE/EPI 1% 1:100000 20 ML VIAL INJ ONE (13:27)
[2021-12-29] MEDS ORDERED: BUPIVACAINE-MPF 0.25% 30 ML VIAL INJ ONE (13:27)
[2021-12-29] MEDS ORDERED: HYDROmorphone PFS 2 MG/ML SYR ONE (13:27)
--- NOTE | 2021-12-29 13:40 | NUR ---
12/29/21 RD FOLLOW UP COMPLETED PLEASE REFER TO NUTRITION ASSESSMENT UNDER CARE ACTIVITY FOR ESTIMATED NUTRITIONAL NEEDS. 1. WHEN/IF MEDICALLY APPROPRIATE, CONTINUE OSMOLITE 1.5 @ 60 ML/HR WITH NEW BID -FWF: 200 ML Q6H OR PER MD -WILL PROVIDE 100% OF ESTIMATED NUTRIENT NEEDS 2. MONITOR GI SYMPTOMS AND NUTRITION-RELATED LAB VALUES 3. RD TO FOLLOW-UP 2-3 DAYS, HIGH RISK AMANDA HUFF RD
--- NOTE | 2021-12-29 13:41 | NUR ---
PT TAKEN TO OR
--- NOTE | 2021-12-29 13:43 | NUR ---
PT WAS BROUGHT BACK BY OR STAFF, PER OR STAFF, SURGEON CANCELLED THE SURGERY
--- NOTE | 2021-12-29 13:55 | NUR ---
CALLED FATHER SARAH AND MADE AWARE THAT SURGERY WAS CANCELLED.
--- NOTE | 2021-12-29 15:22 | NUR ---
GOOD CHEST RISE DEEP TRACHEAL SUCTION FOR LARGE THIN YELLOW/GREEN SECRETIONS AIRWAY PATENT
--- NOTE | 2021-12-29 16:14 | NUR ---
DR UGALDE MADE AWARE OF SURGERY CANCELLATION, TO RESUME TUBE FEEDING AND HOLD AT MIDNIGHT
--- NOTE | 2021-12-29 17:05 | NUR ---
PLANNING AIDE ASSIST WITH RN AND EDUCATIONAL RESOURCE COORDINATOR FOR PHYSICAL HYGIENE AND REPOSITION PLACED ON FIO2 OF 1005 DURING PROCEDURE TOLERATED WELL WITHOUT COMPLICATIONS NOTED Addendum: 12/29/21 at 1754 by Jules Madera RT 1005 = 100%
--- NOTE | 2021-12-29 17:28 | NUR ---
STABLE GOOD CHEST RISE DEEP TRACHEAL SUCTION FOR LARGE THIN GREEN SECRETIONS AIRWAY PATENT
[2021-12-29] MEDS ORDERED: DEXTROSE 5% IV SCH (21:00)
[2021-12-29] MEDS ORDERED: AMIKACIN IV SCH (21:00)
[2021-12-29] MEDS: PREGABALIN 25 MG CAP GT SCH (21:00)
[2021-12-30] VITALS: BP 126/79
[2021-12-30] MEDS: HYDRAGUARD CREAM TP SCH ×2 (01:00→13:22)
[2021-12-30] MEDS: ALBUTEROL SULFATE/IPRATROPIU 3 ML SOL IH SCH ×3 (01:00→19:20)
[2021-12-30 04:00] VITALS: BP 116/72
[2021-12-30] MEDS: PIPERACILLIN/TAZOBACTAM 3.375 GM in DEXTROSE 5% 50 ML IV SCH ×4 (05:39→12:30)
[2021-12-30 06:24] LABS: APPEARANCE,URINE CLOUDY (CLEAR); BILIRUBIN,URINE NEGATIVE (NEGATIVE); BLOOD, URINE 3+ (NEGATIVE); COLOR,URINE YELLOW (YELLOW); LEUKOCYTE ESTERASE ,URINE 3+ (NEGATIVE); NITRITE, URINE POSITIVE (NEGATIVE); UGLUCOSE NEGATIVE (NEGATIVE)
[2021-12-30 07:15] LABS: CARBON DIOXIDE 26.9 mmol/L (21-32); CREATININE 0.6 mg/dL (0.6-1.3); POTASSIUM 3.9 mmol/L (3.5-5.1)
[2021-12-30 07:19] LABS: HEMATOCRIT 35.6 % (36-52); HEMOGLOBIN 11.9 g/dL (12.0-18.0); MEAN CORPUSCULAR HEMOGLOBIN 29 pg (27-31); MEAN CORPUSCULAR HGB CONC 33 g/dL (33-37); MEAN CORPUSCULAR VOLUME 86.7 fL (80-94); PLATELET COUNT (AUTO) 213 K/uL (140-450); RED BLOOD CELL COUNT(AUTO) 4.11 MIL/uL (4.20-6.10); RED CELL DISTRIBUTION WIDTH 16.8 % (11.6-13.7); WHITE BLOOD COUNT (AUTO) 10.5 K/uL (4.8-10.8)
--- NOTE | 2021-12-30 07:20 | NUR ---
RECEIVED BEDSIDE REPORT FROM CASINO CASHIER NURSE FOR CONTINUITY OF CARE. PT IS AWAKE, NONVERBAL. PT IS APHASIC. TRACH TO VENT WITH SETTINGS FIO2 60%, PEEP 6, VT 550, RT 18. G TUBE IN PLACE INFUSING FEEDING. BAL CATH IN PLACE DRAINING STRAW COLORED URINE. SKIN IS WARM AND DRY. IV IS INTACT ON THE LEFT THUMB SALINE LOCKED. PT IS STABLE.
--- NOTE | 2021-12-30 07:46 | NUR ---
ANESTHESIOLOGIST AT THE BEDSIDE WITH OR NURSE TO HAND DEVELOPER PATIENT FOR DIVERTING COLOSTOMY PROCEDURE. CALLED RT TO THE BEDSIDE TO TRY TO DECREASE FIO2 FROM 60% TO 40%.
[2021-12-30 08:00] VITALS: BP 91/45
[2021-12-30] MEDS ORDERED: ROCURONIUM 50 MG/5 ML VIAL IV ONE (08:00)
[2021-12-30] MEDS ORDERED: NEOSTIGMINE 1:1000 10 MG/10 ML VIAL ONE (08:00)
[2021-12-30] MEDS ORDERED: ONDANSETRON 4 MG/2 ML VIAL ONE (08:00)
[2021-12-30] MEDS ORDERED: PIPERACILLIN/TAZOBACTAM 3.375 GM VIAL IV ONE (08:00)
[2021-12-30] MEDS ORDERED: SEVOFLURANE 250 ML BTL INH ONE (08:00)
--- NOTE | 2021-12-30 08:00 | NUR ---
ASSISTED IN TRANSPORT OF PT FROM RM 108 TO OR. I USED AN AMBU BAG TO MAINTAIN THE PTS VENTILATION. THE PT IS A CHRONIC TRACH TO VENT, THE PT HAS A SH 8 XLT TRACH. I BAGGED THE PT TO THE OR. AT WHICH THE OR NURSE PRESENT ASSUMED BAGGING THE PT.
--- NOTE | 2021-12-30 08:00 | NUR ---
PT WAS TAKEN TO THE OR BY OR NURSE AND RT GORGE FOR PROCEDURE, DIVERTING COLOSTOMY. PT IS STABLE AT THIS TIME OF TRANSFER. WILL WAIT FOR PT TO ARRIVE BACK TO UNIT.
[2021-12-30] MEDS: LEVOTHYROXINE 0.025 MG, LEVOTHYROXINE 0.112 MG GT SCH ×2 (08:11)
[2021-12-30 08:27] LABS: RBC,URINE 11-20 (MOD) /HPF (0-5)
[2021-12-30 08:28] LABS: CALCIUM OXALATE CRYSTALS,UR 0-10 /HPF (None Seen); COARSE GRANULAR CASTS,URINE None Seen /LPF (None Seen); FINE GRANULAR CASTS,URINE None Seen /LPF (None Seen); HYALINE CASTS, URINE None Seen /LPF (None Seen); OTHER CASTS, URINE None Seen /LPF (None Seen); OTHER CRYSTALS,URINE None Seen /HPF (None Seen); RED BLOOD CELL CASTS,URINE None Seen /LPF (None Seen); TRICHOMONAS,URINE None Seen /HPF (None Seen); TRIPLE PHOSPHATE CRYSTAL,UR None Seen /HPF (None Seen); URIC ACID CRYSTALS,URINE None Seen /HPF (None Seen); URINE AMORPHOUS URATE None Seen /HPF (None Seen); WAXY CASTS,URINE None Seen /LPF (None Seen); YEAST,URINE None Seen /HPF (None Seen)
[2021-12-30] MEDS ORDERED: FUROSEMIDE 40 MG/4 ML VIAL IVP ONE (09:15)
[2021-12-30] MEDS ORDERED: fentaNYL citrate 0.05 MG/ML VIAL ONE (09:23)
[2021-12-30 09:33] LABS: EOSINOPHILS % (MANUAL) 3 % (0-4); LYMPHOCYTES % (MANUAL) 13 % (20-46); MONOCYTES % (MANUAL) 8 % (5-12)
[2021-12-30 09:36] LABS: MYELOCYTES % 1 % (0-0)
[2021-12-30] MEDS ORDERED: PHENYLEPHRINE 10 MG/ML VIAL ONE (09:50)
--- NOTE | 2021-12-30 09:50 | NUR ---
RECEIVED CALL FROM OR NURSE, ASKED TO COME TO OR [address] HUFF[address] I DONNED THE PPE NECESSARY TO ENTER THE OR, I ASSISTED IN TRANSFER OF PT FROM OR BED TO TRANSPORT BED. I ASSISTED IN TRANSPORT OF PT FROM OR TO ICU BED 3. PRIOR TO MOVING THE PT FROM THE OR TO ICU. I TRANSPORTED THE VENTILATOR FROM RM 108 TO ICU 3. THE VENTILATOR IS PLUGGED INTO A RED OUTLET, AND FUNCTIONING PROPERLY. THE PT IS SATURATING 100% AT 85% FIO2. WILL CONTINUE TO TITRATE PT ACCORDINGLY.
--- NOTE | 2021-12-30 10:05 | NUR ---
PT ARRIVED TO ICU3 FROM OR. RECEIVED BEDSIDE REPORT FROM CAESAR BEADING MACHINE OPERATOR FOR CONTINUITY OF CARE. PT AAOX0, APHASIC, LETHARGIC FROM ANESTHESIA. TRACH TO VENT, ACPRVC, FIO2 100%, R 18, VT 550, PEEP 8. ST ON BEDSIDE MONITOR, HR 110. GTUBE IN PLACE, CLAMPED. COLOSTOMY BAG IN PLACE. SUPRAPUBIC CATHETER IN PLACE, DRAINING CLOUDY JIMBO URINE. SKIN NOT INTACT, WOUNDS TO BL BUTTOCK SKIN FOLDS. ABD INCISIONS WITH SUTURES AND DERMABOND, CLEAN AND INTACT. 22G TO RW INFUSING NS AT 100 ML/H. 22G TO R THUMB, SALINE LOCK. GENERALIZED WEAKNESS TO BUE BLE. ON CONTACT PRECAUTIONS FOR MDRO URINE. CALL LIGHT WITHIN REACH. SAFETY PRECAUTIONS MET. INITIAL ASSESSMENT COMPLETE, WILL CONTINUE TO CLOSELY MONITOR.
--- NOTE | 2021-12-30 10:55 | NUR ---
ALSO RECEIVED TELEPHONE REPORT FROM PRIMARY RN IN [place] FOR CONTINUITY OF CARE. Addendum: 12/30/21 at 1434 by Alma Cook RN RECEIVE REPORT FROM STEPHON GAMING RN
[2021-12-30] MEDS ORDERED: HYDROmorphone 1 MG/ML AMP IVP PRN (11:00)
[2021-12-30] MEDS: NACL 0.9% 1,000 ML IV SCH (11:00)
--- NOTE | 2021-12-30 11:00 | NUR ---
RECEIVED CALL FROM PT SISTER, GURDEEP, UPDATED REGARDING PT GENERAL CONDITION.
--- NOTE | 2021-12-30 11:02 | NUR ---
RECEIVED CALL FROM ROBERTO JEAN BAPTISTE FROM ICU. PT WAS TRANSFERRED TO ICU AFTER PROCEDURE. PT NEVER RETURNED TO [facility] UNIT. REPORT WAS GIVEN TO ROBERTO JEAN BAPTISTE.
[2021-12-30] MEDS: AMIODARONE 200 MG TAB GT SCH (11:04)
[2021-12-30] MEDS: PREGABALIN 25 MG CAP GT SCH ×2 (11:05→21:00)
[2021-12-30] MEDS: METHADONE 10 MG TAB GT SCH ×2 (11:05→21:00)
[2021-12-30] MEDS: POLYETHYLENE GLYCOL 17 GM/PKT GT SCH (11:08)
[2021-12-30] MEDS: MAGNESIUM HYDROXIDE 2400 MG/30 ML UDC GT SCH (11:08)
[2021-12-30] MEDS: GLYCOPYRROLATE 1 MG TAB GT SCH ×3 (11:09→17:38)
[2021-12-30] MEDS ORDERED: LABETALOL 20 MG/4 ML VIAL IVP PRN (11:09)
[2021-12-30] MEDS: VENLAFAXINE XR 75 MG CAPER PO SCH (11:10)
[2021-12-30] MEDS: PANTOPRAZOLE 40 MG INJ VIAL IVP SCH (11:10)
[2021-12-30] MEDS ORDERED: hydrALAZINE 20 MG/ML VIAL IVP PRN (11:10)
[2021-12-30] MEDS: ZINC SULF 220 MG CAP GT SCH (11:10)
--- NOTE | 2021-12-30 11:15 | NUR ---
SEEN AND EXAMINED BY DR JERNIGAN. RECEIVED VERBAL TRANSFER ORDERS FOR TELEMETRY.
[2021-12-30 12:00] VITALS: BP 101/65
--- NOTE | 2021-12-30 13:00 | NUR ---
PT CLEANED AND REPOSITIONED. XL LIQUID BROWN BM NOTED. TOLERATED MOVEMENT WELL. CHANGED DRESSINGS. WILL CONTINUE TO CLOSELY MONITOR
[2021-12-30] MEDS: FOAM DRESSING TP SCH (13:22)
--- NOTE | 2021-12-30 15:00 | NUR ---
PT RESTING, RESPIRATIONS EVEN AND UNLABORED, NO S/S ACUTE DISTRESS. WILL CONTINUE TO CLOSELY MONITOR.
[2021-12-30 16:00] VITALS: BP 92/47
--- NOTE | 2021-12-30 17:00 | NUR ---
PT RESTING, NO S/S ACUTE DISTRESS. WILL CONTINUE TO CLOSELY MONITOR
--- NOTE | 2021-12-30 17:52 | NUR ---
ENDORSED REPORT TO [facility] VIA TELEPHONE FOR CONTINUITY OF CARE. ALL QUESTIONS ANSWERED.
--- NOTE | 2021-12-30 18:40 | NUR ---
PT TRANSFERRED TO TELE BED 108B, ASSIST FROM RT. VSS, NO S/S ACUTE DISTRESS.
--- NOTE | 2021-12-30 18:51 | NUR ---
JUST RECEIVED PATIENT IN ROOM 107B. PT VSS, NO ACUTE DISTRESS, RT AT BEDSIDE VENT SETTINGS: FIO2 40% PEEP 8 TV 550 SUPRAPUBIC CATHETER NOTED, G TUBE NOTED - DRESSING CHANGED, COLOSTOMY BAG EMPTY, CLEAN DRY AND INTACT. LAPAROSCOPIC ENTRIES NOTED - COVERED WITH TEGADERM. PT REPOSITIONED, VITALS STABLE, IV RUNNING NS @ 100. BED LOCKED AND IN LOWEST POSITION, PT CLOSE TO NURSES STATION. NO ACUTE DISTRESS, SAFETY MEASURES MAINTAINED, WILL CONTINUE TO MONITOR.
[2021-12-30 20:00] VITALS: BP 92/47
[2021-12-30] MEDS: AMIKACIN IV SCH (21:00)
[2021-12-30] MEDS: DEXTROSE 5% IV SCH (21:00)
[2021-12-31] VITALS: BP 92/47
[2021-12-31] MEDS: ALBUTEROL SULFATE/IPRATROPIU 3 ML SOL IH SCH ×4 (00:04→19:28)
[2021-12-31] MEDS: HYDRAGUARD CREAM TP SCH ×2 (01:00→14:01)
--- NOTE | 2021-12-31 01:12 | NUR ---
PATIENT AWAKE CAN TRACK WELL SMILES AT YOU HAD TRACH TO VENT RATE 18, TV 550 FI02 35 %, PEEP 8. SAT 975. PATIENT LUNGS DIMINISH. IN CONTACT FOR MNareshR.O.. SINUS ON MONITOR.HAS IV INFUSING AT 100 HOUR.NHAS 22 GA IN RIGHT F.A. PATIENT HAS G-TUBE MEDS GIVEN PATIENT TO FLUSH.HUNG OSMOLITE AT 60 HOUR. NO RESIDUAL AT 2000 AND 0000. HAS SUPRA PUBIC CATH DRAINING YELLOW URINE. HAS NEW COLOSTOMY AT LEFT LOWER QUAD SITE BAG DRAINING CHU COLOR DRAIN. SMALL. NO DISTRESS NOTED.
[2021-12-31 04:00] VITALS: BP 102/55
[2021-12-31] MEDS: PIPERACILLIN/TAZOBACTAM 3.375 GM in DEXTROSE 5% 50 ML IV SCH ×5 (06:00→17:50)
[2021-12-31] MEDS: NACL 0.9% 1,000 ML IV SCH ×4 (06:00→23:00)
[2021-12-31] MEDS ORDERED: LEVOTHYROXINE 0.025 MG TAB ONE (06:04)
[2021-12-31] MEDS ORDERED: LEVOTHYROXINE 0.112 MG TAB ONE (06:05)
[2021-12-31] MEDS: LEVOTHYROXINE 0.025 MG, LEVOTHYROXINE 0.112 MG GT SCH ×2 (06:30)
--- NOTE | 2021-12-31 07:30 | NUR ---
RECEIVED BEDSIDE REPORT FROM ENROLLMENT COORDINATOR NURSE FOR CONTINUITY OF CARE. PT IS AWAKE, NONVERBAL. PT IS APHASIC. TRACH TO VENT WITH SETTINGS FIO2 35%, PEEP 6, VT 550, RT 18. G TUBE IN PLACE INFUSING FEEDING. BAL CATH IN PLACE DRAINING STRAW COLORED URINE. SKIN IS WARM AND DRY. IV IS INTACT AND PATENT INFUSING FLUIDS ORDERED. PT IS STABLE. PLAN OF CARE DISCUSSED. SAFETY PRECAUTIONS IN PLACE. CALL LIGHT WITHIN REACH. WILL CONTINUE TO MONITOR.
[2021-12-31 08:00] VITALS: BP 92/40
--- NOTE | 2021-12-31 08:45 | NUR ---
RT AT BEDSIDE.
[2021-12-31] MEDS: AMIODARONE 200 MG TAB GT SCH (10:26)
[2021-12-31] MEDS: PREGABALIN 25 MG CAP GT SCH ×2 (10:27→21:00)
[2021-12-31] MEDS: POLYETHYLENE GLYCOL 17 GM/PKT GT SCH (10:27)
[2021-12-31] MEDS: METHADONE 10 MG TAB GT SCH ×2 (10:27→21:00)
[2021-12-31] MEDS: GLYCOPYRROLATE 1 MG TAB GT SCH ×3 (10:28→17:49)
[2021-12-31] MEDS: ZINC SULF 220 MG CAP GT SCH (10:28)
[2021-12-31] MEDS: PANTOPRAZOLE 40 MG INJ VIAL IVP SCH (10:29)
[2021-12-31] MEDS: VENLAFAXINE XR 75 MG CAPER PO SCH (10:29)
--- NOTE | 2021-12-31 10:30 | NUR ---
ALL SCHEDULED MEDS GIVEN. PT IS STABLE. NO DISTRESS NOTED. WILL CONTINUE TO MONITOR.
[2021-12-31] MEDS: SCOPOLAMINE 1.5 MG/72 HR PATCH TD SCH (10:35)
[2021-12-31 12:00] VITALS: BP 95/40
[2021-12-31] MEDS: FOAM DRESSING TP SCH (14:00)
--- NOTE | 2021-12-31 14:00 | NUR ---
ALL SCHEDULED MEDS GIVEN. PT IS STABLE. NO DISTRESS NOTED. WILL CONTINUE TO MONITOR.
[2021-12-31 16:00] VITALS: BP 104/97
--- NOTE | 2021-12-31 17:45 | NUR ---
ALL SCHEDULED MEDS GIVEN. PT IS STABLE. NO DISTRESS NOTED. WILL CONTINUE TO MONITOR.
--- NOTE | 2021-12-31 19:28 | NUR ---
RECEIVED PT TRACH TO VENT WITH A SHILEY XLT 8 AIRWAY PATENT AND SECURE ON A GE CARESCAPE R860 VENTILATOR SETTINGS AC PRVC VT550, RR18, PEEP+8, FIO2 100%. NO SIGNS OF RESPIRATORY DISTRESS NOTED AT THIS TIME PT'S CURRENT SPO2 94%. ANTERIOR AUSCULTATION REVEALED BS COARSE CRACKLES THROUGHOUT ALL LUNG COPE, DEEP TRACHEAL SXN FOR SMALL PALE/YELLOW THICK SECRETIONS. HOB ELEVATED, AMBU BAG AT BEDSIDE, VENT PLUGGED INTO RED OUTLET, ALARMS ARE ON AND AUDIBLE. WILL CONTINUE TO MONITOR.
--- NOTE | 2021-12-31 19:35 | NUR ---
ENDORSED TO SENIOR CORPORATE STRATEGY MANAGER NURSE FOR CONTINUITY OF CARE. PT IS STABLE.
[2021-12-31 20:00] VITALS: BP 101/71
[2021-12-31] MEDS: AMIKACIN IV SCH (21:00)
[2021-12-31] MEDS: DEXTROSE 5% IV SCH (21:00)
--- NOTE | 2021-12-31 21:56 | NUR ---
PT LAYING IN SUPINE POSITION, HOB ELEVATED, AIRWAY PATENT AND SECURE, ANTERIOR AUSCULTATIONS REVEALED COARSE CRACKLES THROUGHOUT. NO SIGNS OF RESPIRATORY DISTRESS NOTED AT THIS TIME PT IS CURRENTLY SATING 93%. MACHINE PLUGGED INTO RED OUTLET, ALARMS ARE ON AND AUDIBLE, WILL CONTINUE TO MONITOR.
[2021-12-31] MEDS ORDERED: CRUSHER, PILL MC ONE (22:23)
--- NOTE | 2021-12-31 23:28 | NUR ---
PATIENT SLEEPING QUIETLY TRACH TO VENT RATE 18, TV 550, FI02 40 % PEEP 8 SAT 97%. LUNGS DIMINISH ON MONITOR SINUS TACT TEMP 98.3 HAS OSMOLITE AT 60 HOUR NO RESIDUAL HUNG AT 2245 VITAL 65 HOUR. GETTING 200CC OF WATER EVERY SIX HOUR. PATIENT HAD AMIKCIN DRAWN AT 2126. HUNG AMIKCIN AT 2130 FINISH AT 2310 CALLED LAB THEY CAME AND DRAWN PEAK.. HAS SUPRA PUBIC CATH 200 CC OUT. HAS NEW COLOSTOMY 75 CC CLEAR RED DRAIN. NO DISTRESS NOTED.
[2022-01-01] VITALS: BP 103/68
[2022-01-01] MEDS: HYDRAGUARD CREAM TP SCH ×2 (01:00→13:17)
[2022-01-01] MEDS: ALBUTEROL SULFATE/IPRATROPIU 3 ML SOL IH SCH ×4 (01:20→13:35)
--- NOTE | 2022-01-01 01:40 | NUR ---
PT LAYING IN SUPINE POSITION, HOB ELEVATED, AIRWAY PATENT AND SECURE, ANTERIOR AUSCULTATIONS REVEALED COARSE CRACKLES THROUGHOUT, DEEP TRACHEAL SXN FOR MODERATE PALE YELLOW THICK SECRETIONS. NO SIGNS OF RESPIRATORY DISTRESS NOTED AT THIS TIME PT IS CURRENTLY SATING 96%. MACHINE PLUGGED INTO RED OUTLET, ALARMS ARE ON AND AUDIBLE, WILL CONTINUE TO MONITOR.
[2022-01-01 04:00] VITALS: BP 106/66
--- NOTE | 2022-01-01 04:12 | NUR ---
TRACH SITE CLEANSED TRACH CARE DONE AT THIS TIME. PT LAYING IN SUPINE POSITION, HOB ELEVATED, AIRWAY PATENT AND SECURE, NO SIGNS OF RESPIRATORY DISTRESS NOTED AT THIS TIME PT IS CURRENTLY SATING 95%. MACHINE PLUGGED INTO RED OUTLET, ALARMS ARE ON AND AUDIBLE, WILL CONTINUE TO MONITOR.
[2022-01-01] MEDS: PIPERACILLIN/TAZOBACTAM 3.375 GM in DEXTROSE 5% 50 ML IV SCH ×4 (06:00→12:29)
[2022-01-01] MEDS: LEVOTHYROXINE 0.025 MG, LEVOTHYROXINE 0.112 MG GT SCH ×2 (06:13)
[2022-01-01] MEDS ORDERED: LEVOTHYROXINE 0.025 MG TAB ONE (06:27)
[2022-01-01] MEDS ORDERED: LEVOTHYROXINE 0.112 MG TAB ONE (06:28)
--- NOTE | 2022-01-01 07:30 | NUR ---
RECEIVED REPORT FROM ERP MANAGER NURSE GEORGINA. INITIAL ASSESSMENT DONE, PT ON TRACH TO VENT, ACPRVC FIO2 40%, RATE 18, TV 550, PEEP8. SATURATING @ 97%, NO SOB NOTED. PT APHASIC, UNABLE TO LET NEEDS KNOWN. IV TO RIGHT WRIST 22G PATENT INTACT RUNNING NS @ 100ML/HR, AND RIGHT THUMB 22G. SUPRAPUBIC CATH IN PLACE DRAINING TO GRAVITY NOTED YELLOW WITH SEDIMENTS. COLOSTOMY IN PLACE. GT IN PLACE WITH FEEDING, TOLERATED WELL RESIDUAL 150ML, WILL CONTINUE TO MONITOR.
[2022-01-01 07:33] LABS: ANION GAP 12.6 (8-16); CARBON DIOXIDE 25.6 mmol/L (21-32); CREATININE 0.4 mg/dL (0.6-1.3); POTASSIUM 3.2 mmol/L (3.5-5.1)
[2022-01-01 08:00] VITALS: BP 116/63
[2022-01-01] MEDS: MAGNESIUM HYDROXIDE 2400 MG/30 ML UDC GT SCH (09:13)
[2022-01-01] MEDS: METHADONE 10 MG TAB GT SCH (09:13)
[2022-01-01] MEDS: VENLAFAXINE XR 75 MG CAPER PO SCH (09:13)
[2022-01-01] MEDS: ZINC SULF 220 MG CAP GT SCH (09:14)
[2022-01-01] MEDS: GLYCOPYRROLATE 1 MG TAB GT SCH ×2 (09:14→13:33)
[2022-01-01] MEDS: PANTOPRAZOLE 40 MG INJ VIAL IVP SCH (09:14)
[2022-01-01] MEDS: PREGABALIN 25 MG CAP GT SCH (09:14)
[2022-01-01] MEDS: AMIODARONE 200 MG TAB GT SCH (09:14)
[2022-01-01] MEDS: POLYETHYLENE GLYCOL 17 GM/PKT GT SCH (09:15)
[2022-01-01] MEDS: HYDROCOLLOID DRESSING TP SCH (09:16)
--- NOTE | 2022-01-01 09:16 | NUR ---
DUE MEDICATION GIVEN, PT TOLERATED WELL, WILL CONTINUE TO MONITOR.
--- NOTE | 2022-01-01 10:58 | NUR ---
WOUND CARE RE-EVALUATION NOTE: SKIN ASSESSMENT DONE WITH PRIMARY RN. S/P LAPAROSCOPY WITH DIVERTING COLOSTOMY. ABDOMEN MULTIPLE SITES DRY AND CLEAN WITH DERMABOND NO S/S INFECTION. POC DISCUSSED WITH PRIMARY RN AND PT. PLAN TO DISCHARGE TO SNF. -LLQ ABDOMEN COLOSTOMY JESUS MANUEL STOMA SKIN CLEAN AND INTACT, STOMA MOIST, BEEFY RED, ROUND SHAPE 1 5/8 (41MM), PROTRUSION 2CM , CLEAR JIMBO COLOR FLUIDS OBSERVED IN BAG. -INCONTINENT ASSOCIATED DERMATITIS TO BILATERAL BUTTOCKS SKIN MOIST -SUPRA PUBIC JESUS MANUEL-STOMA SKIN EROSION RESOLVED RECOMMENDATIONS: -OSTOMY CARE PER PROTOCOL AND DURING OSTOMY CARE PLEASE FOLLOW INSTRUCTION BELOW: -CHECK JESUS MANUEL STOMA SKIN CONDITION EVERY TIME WAFER CHANGED Q 5 DAYS AND PRN IF DISPLACED -APPLY SKIN PREP TO JESUS MANUEL-OSTOMY SKIN -APPLY STOMA ADHESIVE PAST TO THE WAFER, NEAR THE EDGE OF STOMA SKIN AREA, PAT FLAT. APPLY SKIN PREP TO JESUS MANUEL-STOMA SKIN - USE 2- PIECES TONE OSTOMY DEVICES WITH 1 5/8 (41MM), FLEX TO FIT THE STOMA EXACTLY. NO SKIN SHOWING. APPLY PRE-SHAPE WAFER TO OSTOMY AND ATTACHED POUCH TO WAFER. CHANGE WAFER Q5 DAYS. -EMPTY AND RINSE POUCH WHEN IT IS 1/2 FULL. CHANGE POUCH Q5 DAYS AND PRN IF LEAK
[2022-01-01] MEDS ORDERED: AMIKACIN IV (11:12)
[2022-01-01] MEDS ORDERED: IV Zosyn IV (11:12)
[2022-01-01 12:00] VITALS: BP 120/66
[2022-01-01] MEDS: NACL 0.9% 1,000 ML IV SCH (13:17)
[2022-01-01] MEDS: FOAM DRESSING TP SCH (13:17)
--- NOTE | 2022-01-01 13:17 | NUR ---
DUE MEDICATION ADMINISTERED, PT TOLERATED WELL, NO DISTRESS NOTED, WILL CONTINUE TO MENTION.
--- NOTE | 2022-01-01 15:14 | NUR ---
REPORT GIVEN TO [facility]. STATED UNDERSTANDING ALL QUESTIONS ANSWERED.
--- NOTE | 2022-01-01 15:20 | NUR ---
CALLED PT FATHER SARAH BYRD TO NOTIFY THAT PT IS GOING BACK TO [facility] TODAY.
--- NOTE | 2022-01-01 16:10 | NUR ---
PT LEFT UNIT WITH [facility] STAFF, IN STABLE CONDITION.
== END 2022-01-01 16:17 | DRG 853 ==
LOC: MED 13:02 → MTU 16:08 → MIC 12-30 10:50 → MTU 12-30 18:40
PROVIDERS: ADMIT Student in an Organized Health Care Education/Training Program; ATTEND Student in an Organized Health Care Education/Training Program
PROC: 5A1955Z Respiratory Ventilation, Greater than 96 Consecutive Hours (ICD-10-PCS; principal; 2021-12-22)
PROC: 0D1N4Z4 Bypass Sigmoid Colon to Cutaneous, Percutaneous Endoscopic Approach (ICD-10-PCS; 2021-12-22)
DX: A41.9 Sepsis, unspecified organism (principal); J15.1 Pneumonia due to Pseudomonas; J96.20 Acute and chronic respiratory failure, unspecified whether with hypoxia or hypercapnia; K56.609 Unspecified intestinal obstruction, unspecified as to partial versus complete obstruction; E44.1 Mild protein-calorie malnutrition; G93.1 Anoxic brain damage, not elsewhere classified; N39.0 Urinary tract infection, site not specified; Z68.1 Body mass index [BMI] 19.9 or less, adult; R13.10 Dysphagia, unspecified; I10 Essential (primary) hypertension; K80.20 Calculus of gallbladder without cholecystitis without obstruction; E66.01 Morbid (severe) obesity due to excess calories; N20.0 Calculus of kidney; E03.9 Hypothyroidism, unspecified; I48.91 Unspecified atrial fibrillation; F79 Unspecified intellectual disabilities; Z20.822 Contact with and (suspected) exposure to COVID-19; Y95 Nosocomial condition; D64.9 Anemia, unspecified; Z95.0 Presence of cardiac pacemaker; Z79.1 Long term (current) use of non-steroidal anti-inflammatories (NSAID); Z79.899 Other long term (current) drug therapy; Z93.0 Tracheostomy status; Z93.1 Gastrostomy status; Z87.442 Personal history of urinary calculi; Z87.01 Personal history of pneumonia (recurrent); Z86.74 Personal history of sudden cardiac arrest
CPT/HCPCS: 36415; 36600; 71045; 74018; 80048; 80053; 80150; 81001; 82150; 82550; 82553; 82803; 83036; 83605; 83690; 83735; 83880; 84100; 84436; 84439; 84443; 84479; 84484; 85025; 85610; 85730; 87040; 87070; 87081; 87086; 87205; 89220; 93005; 94002; 94003; 94640; 96361; 96365; 99285; A6248; C9113; J0278; J0692; J1170; J1644; J1940; J2001; J2370; J2405; J2543; J2710; J3010; J3370; J3490; J7030; J7060; J7120; Q0092

== ENCOUNTER 2024-01-04 11:08 | Outpatient (CLI) | payer OTHER ==
[~2024-01-04 11:08] MED LIST changes: +IV Zosyn IV; +METO25TA14 GT; +ZINC50TA76 GT
== END 2024-01-04 19:57 | disposition home or self-care (01) ==
LOC: MRD 11:08
PROVIDERS: ATTEND Internal Medicine
DX: Z53.9 Procedure and treatment not carried out, unspecified reason (principal)

== ENCOUNTER 2024-04-01 10:03 | Inpatient (IN) | payer OTHER ==
[~2024-04-01] VITALS: Ht 180.3 cm; Wt 135.6 kg
[2024-04-01] VITALS (16 sets, daily range): BP systolic 104–141; BP diastolic 43–90; PULSE 86–124; RESP 17–21; TEMP 99.5–102.9; O2SAT 95–100
[2024-04-01] MEDS: ACETAMINOPHEN 650 MG SUPP RC ONE (10:56)
[2024-04-01 11:01] LABS: APPEARANCE,URINE CLOUDY (CLEAR); BILIRUBIN,URINE NEGATIVE (NEGATIVE); BLOOD, URINE 2+ (NEGATIVE); COLOR,URINE OTHER (YELLOW); LEUKOCYTE ESTERASE ,URINE 3+ (NEGATIVE); NITRITE, URINE NEGATIVE (NEGATIVE); PH,URINE 8.5 (5.0-9.0); PROTEIN,URINE 2+ (NEGATIVE); UGLUCOSE NEGATIVE (NEGATIVE); UROBILINOGEN,URINE 0.2 EU/dL (0.2 - 1)
[2024-04-01] MEDS ORDERED: VANCOMYCIN 1,000 MG VIAL ONE (11:04)
[2024-04-01] MEDS ORDERED: PIPERACILLIN/TAZOBACTAM 3.375 GM VIAL IV ONE (11:04)
[2024-04-01] MEDS: PIPERACILLIN/TAZOBACTAM 3.375 GM in DEXTROSE 5% 50 ML IV ONE (11:07)
[2024-04-01] MEDS: NACL 0.9% 1,000 ML IV ONE ×2 (11:07→17:56)
[2024-04-01 11:08] LABS: RBC,URINE 11-20 (MOD) /HPF (0-5); WBC,URINE 16-25 (MOD) /HPF (0-5)
[2024-04-01 11:09] LABS: BACTERIA,URINE >30 (MANY) /HPF (None Seen); MUCUS,URINE 1+ /LPF (None Seen); SQUAMOUS EPITHELIAL CELL,UR 0-3 (FEW) /LPF (0-3 (FEW))
[2024-04-01 11:11] LABS: ANION GAP 12.9 (8-16); CALCIUM 8.9 mg/dL (8.5-10.1); CARBON DIOXIDE 26.8 mmol/L (21-32); CREATININE 1.3 mg/dL (0.6-1.3); POTASSIUM 4.7 mmol/L (3.5-5.1)
[2024-04-01 11:14] LABS: INR 0.97 (0.8-1.2); PARTIAL THROMBOPLASTIN TIME 26.9 secs (22-35.6); PROTHROMBIN TIME 10.2 secs (10.8-13.4)
[2024-04-01 11:18] LABS: ALANINE AMINOTRANSFERASE 62 U/L (12-78); ALBUMIN 2.9 g/dL (3.4-5.0); ALKALINE PHOSPHATASE 151 U/L (50-136); ASPARTATE AMINOTRANSFERASE 45 U/L (15-37); CREATINE KINASE, TOTAL 19 U/L (39-308); TOTAL BILIRUBIN 1.5 mg/dL (0.0-1.0)
[2024-04-01] MEDS: VANCOMYCIN 1,000 MG in DEXTROSE 5% 250 ML IV ONE (11:20)
[2024-04-01 11:21] LABS: MEAN CORPUSCULAR HEMOGLOBIN 24 pg (27-31); MEAN CORPUSCULAR HGB CONC 31 g/dL (33-37); RED CELL DISTRIBUTION WIDTH 18.8 % (11.6-13.7)
[2024-04-01 11:22] LABS: LACTIC ACID 4.5 mmol/L (0.4-2.0)
[2024-04-01 11:28] LABS: HEMATOCRIT 40.5 % (36-52); HEMOGLOBIN 12.5 g/dL (12.0-18.0); PLATELET COUNT (AUTO) 196 K/uL (140-450)
[2024-04-01] MEDS: NACL 0.9% 1,500 ML IV ONE (11:30)
[2024-04-01 11:32] LABS: FLU A ANTIGEN negative (NEGATIVE); FLU B ANTIGEN negative (NEGATIVE)
[2024-04-01 11:46] LABS: LYMPHOCYTES % (MANUAL) 3 % (20-46); MONOCYTES % (MANUAL) 2 % (5-12)
[2024-04-01] MEDS ORDERED: ASCO500C20 PO (12:21)
[2024-04-01] MEDS ORDERED: NOREPINEPHRINE 4 MG/4 ML VIAL IV ONE (12:52)
[2024-04-01] MEDS ORDERED: ECON1CRE TP (12:56)
[2024-04-01] MEDS ORDERED: CELE100C99 PO (12:56)
[2024-04-01] MEDS ORDERED: CHLO473L1 PO (12:56)
[2024-04-01] MEDS ORDERED: HYDR-1093 PO (12:56)
[2024-04-01] MEDS ORDERED: CYCL1DRO OP (12:56)
[2024-04-01] MEDS ORDERED: KETO120S5 TP (12:56)
[2024-04-01] MEDS ORDERED: GLYC1SOL PO (12:56)
[2024-04-01] MEDS ORDERED: LACT-85 PO (12:58)
[2024-04-01] MEDS ORDERED: LACT-191 PO (12:58)
[2024-04-01] MEDS ORDERED: METH100S16 (13:02)
[2024-04-01] MEDS ORDERED: ESCI10TA PO (13:02)
[2024-04-01] MEDS: NOREPINEPHRINE 4 MG in DEXTROSE 5% 250 ML IV ONE (13:06)
[2024-04-01] MEDS ORDERED: METO25TA14 PO (13:06)
[2024-04-01] MEDS ORDERED: KCL 20 MEQ IN 100 mL PREMIX 200 ML IV PRN (13:10)
[2024-04-01] MEDS ORDERED: LORazepam 1 MG TAB PO PRN (13:10)
[2024-04-01] MEDS ORDERED: ACET-5634 NG (13:13)
[2024-04-01] MEDS ORDERED: LYR25 GT (13:22)
[2024-04-01] MEDS ORDERED: VITD400 GT (13:34)
[2024-04-01] MEDS: DEXT 5% /NACL 0.9% 1,000 ML IV SCH (19:10)
[2024-04-01] MEDS: NOREPINEPHRINE 4 MG in DEXTROSE 5% 250 ML IV PRN (19:19)
[2024-04-01 20:48] LABS: BLOOD GAS BASE EXCESS -4.5 mmol/L (-2.0-3.0); BLOOD GAS HCO3 20.9 mmol/L (21.0-28.0); BLOOD GAS PCO2 39.8 mmHg (35.0-48.0); BLOOD GAS PH 7.338 (7.350-7.450); BLOOD GAS PO2 98.5 mmHg (83.0-108.0)
[2024-04-01 20:49] LABS: BLOOD GAS O2 SAT% 97.8 % (94.0-98.0)
[2024-04-01] MEDS: PIPERACILLIN/TAZOBACTAM 2.25 GM in DEXTROSE 5% 50 ML IV SCH (21:14)
[2024-04-01] MEDS: VANCOMYCIN 1,000 MG in DEXTROSE 5% 250 ML IV SCH (21:23)
[2024-04-01] MEDS: ACETAMINOPHEN 650 MG/20.3 ML UDC GT PRN (22:03)
[2024-04-01 22:43] LABS: LACTIC ACID 1.5 mmol/L (0.4-2.0)
[2024-04-02] VITALS (25 sets, daily range): BP systolic 88–140; BP diastolic 40–90; PULSE 67–105; RESP 18; TEMP 97.3–98.8; O2SAT 92–100
[2024-04-02] MEDS: Z-GUARD PASTE TP ONE (00:59)
[2024-04-02] MEDS: Z-GUARD PASTE TP PRN (04:49)
[2024-04-02 05:52] LABS: BASOPHILS # (AUTO) 0.1 K/uL (0.00-0.22); BASOPHILS % (AUTO) 0.5 % (0.0-2.0); EOSINOPHILS # (AUTO) 0.6 K/uL (0-0.4); EOSINOPHILS % (AUTO) 2.6 % (0.0-4.0); HEMATOCRIT 36.7 % (36-52); HEMOGLOBIN 11.5 g/dL (12.0-18.0); LYMPHOCYTES # (AUTO) 0.5 K/uL (2.0-11.5); LYMPHOCYTES % (AUTO) 2.3 % (20.5-51.1); MEAN CORPUSCULAR HEMOGLOBIN 24 pg (27-31); MEAN CORPUSCULAR HGB CONC 31 g/dL (33-37); MEAN CORPUSCULAR VOLUME 75.9 fL (80-94); MONOCYTES # (AUTO) 0.7 K/uL (0.8-1.0); NEUTROPHILS # (AUTO) 20.8 K/uL (1.8-7.7); NEUTROPHILS % (AUTO) 91.6 % (42.2-75.2); PLATELET COUNT (AUTO) 162 K/uL (140-450); RED BLOOD CELL COUNT(AUTO) 4.83 MIL/uL (4.20-6.10); RED CELL DISTRIBUTION WIDTH 18.4 % (11.6-13.7); WHITE BLOOD COUNT (AUTO) 22.8 K/uL (4.8-10.8)
[2024-04-02 06:03] LABS: ALBUMIN 2.5 g/dL (3.4-5.0); ANION GAP 11.6 (8-16); CALCIUM 8.5 mg/dL (8.5-10.1); CARBON DIOXIDE 25.7 mmol/L (21-32); CREATININE 0.7 mg/dL (0.6-1.3); MAGNESIUM 1.9 mg/dL (1.8-2.4); PHOSPHORUS 2.8 mg/dL (2.5-4.9); POTASSIUM 3.3 mmol/L (3.5-5.1); TOTAL PROTEIN, SERUM 6.5 g/dL (6.4-8.2)
[2024-04-02] MEDS ORDERED: VANCOMYCIN PER PHARMACY MC PRN (09:00)
[2024-04-02] MEDS: POTASSIUM CHLORIDE 20% 40 MEQ/15 ML UDC GT SCH (12:15)
[2024-04-02] MEDS: FUROSEMIDE 20 MG/2 ML VIAL IVP SCH (12:15)
[2024-04-02] MEDS: MEROPENEM 1,000 MG in NACL 0.9% 50 ML IV SCH (13:58)
[2024-04-02] MEDS ORDERED: HYDRAGUARD CREAM TP PRN (16:10)
[2024-04-02] MEDS ORDERED: FOAM DRESSING TP PRN (16:10)
[2024-04-02] MEDS ORDERED: ALGINATE DRESSING MC PRN (16:10)
[2024-04-03] VITALS (20 sets, daily range): BP systolic 97–135; BP diastolic 57–95; PULSE 60–96; RESP 16–18; TEMP 94.5–97.1; O2SAT 92–99
[2024-04-03] MEDS: HYDRAGUARD CREAM TP SCH (00:56)
[2024-04-03 05:21] LABS: BASOPHILS % (AUTO) 0.1 % (0.0-2.0); EOSINOPHILS # (AUTO) 0.7 K/uL (0-0.4); EOSINOPHILS % (AUTO) 3.9 % (0.0-4.0); LYMPHOCYTES # (AUTO) 0.8 K/uL (2.0-11.5); LYMPHOCYTES % (AUTO) 4.1 % (20.5-51.1); MEAN CORPUSCULAR HEMOGLOBIN 25 pg (27-31); MEAN CORPUSCULAR HGB CONC 33 g/dL (33-37); MONOCYTES # (AUTO) 0.8 K/uL (0.8-1.0); MONOCYTES % (AUTO) 4.5 % (1.7-9.3); NEUTROPHILS # (AUTO) 16.2 K/uL (1.8-7.7); NEUTROPHILS % (AUTO) 87.4 % (42.2-75.2); PLATELET COUNT (AUTO) 214 K/uL (140-450); RED BLOOD CELL COUNT(AUTO) 4.86 MIL/uL (4.20-6.10); RED CELL DISTRIBUTION WIDTH 18.8 % (11.6-13.7); WHITE BLOOD COUNT (AUTO) 18.5 K/uL (4.8-10.8)
[2024-04-03 05:57] LABS: ALBUMIN 2.4 g/dL (3.4-5.0); ANION GAP 9.3 (8-16); CALCIUM 8.5 mg/dL (8.5-10.1); CARBON DIOXIDE 28.1 mmol/L (21-32); CREATININE 0.7 mg/dL (0.6-1.3); PHOSPHORUS 1.6 mg/dL (2.5-4.9); POTASSIUM 3.4 mmol/L (3.5-5.1); TOTAL BILIRUBIN 0.5 mg/dL (0.0-1.0); TOTAL PROTEIN, SERUM 6.6 g/dL (6.4-8.2)
[2024-04-03] MEDS: PANTOPRAZOLE 40 MG INJ VIAL IVP SCH (08:36)
[2024-04-03] MEDS: POTASSIUM CHLORIDE 20% 40 MEQ/15 ML UDC GT SCH (11:27)
[2024-04-03] MEDS: FOAM DRESSING TP SCH (13:07)
[2024-04-03] MEDS: ALGINATE DRESSING MC SCH (13:07)
[2024-04-03] MEDS ORDERED: ALBUTEROL SULFATE/IPRATROPIU 3 ML SOL IH PRN (15:30)
[2024-04-03] MEDS: ALBUTEROL SULFATE/IPRATROPIU 3 ML SOL IH SCH (19:33)
[2024-04-04] VITALS (16 sets, daily range): BP systolic 95–121; BP diastolic 50–76; PULSE 65–88; RESP 16–20; TEMP 96.1–98.1; O2SAT 90–100
[2024-04-04 06:00] LABS: BASOPHILS % (AUTO) 0.1 % (0.0-2.0); EOSINOPHILS # (AUTO) 0.1 K/uL (0-0.4); EOSINOPHILS % (AUTO) 1.3 % (0.0-4.0); HEMATOCRIT 35.8 % (36-52); HEMOGLOBIN 11.4 g/dL (12.0-18.0); LYMPHOCYTES # (AUTO) 0.4 K/uL (2.0-11.5); LYMPHOCYTES % (AUTO) 7.4 % (20.5-51.1); MEAN CORPUSCULAR HEMOGLOBIN 24 pg (27-31); MEAN CORPUSCULAR HGB CONC 32 g/dL (33-37); MEAN CORPUSCULAR VOLUME 76.1 fL (80-94); MONOCYTES # (AUTO) 0.3 K/uL (0.8-1.0); MONOCYTES % (AUTO) 5.1 % (1.7-9.3); NEUTROPHILS # (AUTO) 5.1 K/uL (1.8-7.7); NEUTROPHILS % (AUTO) 86.1 % (42.2-75.2); PLATELET COUNT (AUTO) 105 K/uL (140-450); RED BLOOD CELL COUNT(AUTO) 4.71 MIL/uL (4.20-6.10); RED CELL DISTRIBUTION WIDTH 18.2 % (11.6-13.7)
[2024-04-04 06:39] LABS: ALBUMIN 2.2 g/dL (3.4-5.0); ANION GAP 6.9 (8-16); CALCIUM 8.1 mg/dL (8.5-10.1); CARBON DIOXIDE 30.9 mmol/L (21-32); CREATININE 0.6 mg/dL (0.6-1.3); MAGNESIUM 1.8 mg/dL (1.8-2.4); PHOSPHORUS 1.4 mg/dL (2.5-4.9); POTASSIUM 3.8 mmol/L (3.5-5.1); TOTAL BILIRUBIN 0.4 mg/dL (0.0-1.0); TOTAL PROTEIN, SERUM 6.1 g/dL (6.4-8.2)
[2024-04-04 09:52] LABS: HEMATOCRIT 36.7 % (36-52); HEMOGLOBIN 11.5 g/dL (12.0-18.0); MEAN CORPUSCULAR HEMOGLOBIN 24 pg (27-31); MEAN CORPUSCULAR HGB CONC 31 g/dL (33-37); MEAN CORPUSCULAR VOLUME 75.8 fL (80-94); PLATELET COUNT (AUTO) 108 K/uL (140-450); RED BLOOD CELL COUNT(AUTO) 4.84 MIL/uL (4.20-6.10); RED CELL DISTRIBUTION WIDTH 18.4 % (11.6-13.7); WHITE BLOOD COUNT (AUTO) 6.8 K/uL (4.8-10.8)
[2024-04-04 10:15] LABS: EOSINOPHILS % (MANUAL) 2 % (0-4); LYMPHOCYTES % (MANUAL) 11 % (20-46); MONOCYTES % (MANUAL) 0 % (5-12)
[2024-04-04 10:16] LABS: BASOPHILS % (MANUAL) 0 % (0-2); BLASTS, MANUAL % 0 % (0-0); METAMYELOCYTES % 0 % (0-0); MYELOCYTES % 0 % (0-0); OTHER CELLS,MANUAL % 0 (0-0); PLASMA CELLS 0; PLATELET ESTIMATE SLIGHTLY DECREASED; PROMYELOCYTES % 0 % (0-0); SMUDGE CELLS 0
[2024-04-04 10:18] LABS: ANISOCYTOSIS 1+
[2024-04-04 10:19] LABS: OVALOCYTES 1+; TEAR DROP CELLS 1+
[2024-04-04] MEDS ORDERED: DEXTROSE 50% 50 ML SYR IVP PRN (10:20)
[2024-04-04] MEDS ORDERED: INSULIN LISPRO SLIDING SCALE 100 UNITS/ML VIAL SUBQ PRN (10:50)
[2024-04-04] MEDS ORDERED: BLOOD GLUCOSE MONITORING 1 DEV DEV FS SCH (11:30)
[2024-04-04] MEDS: BLOOD GLUCOSE MONITORING 1 DEV DEV FS SCH (12:21)
[2024-04-04] MEDS: INSULIN LISPRO SLIDING SCALE 100 UNITS/ML VIAL SUBQ PRN (12:24)
[2024-04-05] VITALS (17 sets, daily range): BP systolic 104–138; BP diastolic 55–75; PULSE 68–102; RESP 16–21; TEMP 97–98.1; O2SAT 94–97
[2024-04-05 06:46] LABS: BASOPHILS % (AUTO) 0.4 % (0.0-2.0); EOSINOPHILS # (AUTO) 0.1 K/uL (0-0.4); EOSINOPHILS % (AUTO) 1.6 % (0.0-4.0); HEMATOCRIT 36.8 % (36-52); LYMPHOCYTES # (AUTO) 0.7 K/uL (2.0-11.5); LYMPHOCYTES % (AUTO) 10.8 % (20.5-51.1); MEAN CORPUSCULAR HEMOGLOBIN 25 pg (27-31); MEAN CORPUSCULAR HGB CONC 33 g/dL (33-37); MEAN CORPUSCULAR VOLUME 75.3 fL (80-94); MONOCYTES # (AUTO) 0.5 K/uL (0.8-1.0); MONOCYTES % (AUTO) 7.6 % (1.7-9.3); NEUTROPHILS # (AUTO) 4.9 K/uL (1.8-7.7); NEUTROPHILS % (AUTO) 79.6 % (42.2-75.2); PLATELET COUNT (AUTO) 118 K/uL (140-450); RED BLOOD CELL COUNT(AUTO) 4.88 MIL/uL (4.20-6.10); RED CELL DISTRIBUTION WIDTH 18.5 % (11.6-13.7); WHITE BLOOD COUNT (AUTO) 6.1 K/uL (4.8-10.8)
[2024-04-05 07:30] LABS: ALBUMIN 2.3 g/dL (3.4-5.0); ANION GAP 6.9 (8-16); CALCIUM 8.4 mg/dL (8.5-10.1); CARBON DIOXIDE 33.8 mmol/L (21-32); CREATININE 0.6 mg/dL (0.6-1.3); MAGNESIUM 1.6 mg/dL (1.8-2.4); PHOSPHORUS 2.3 mg/dL (2.5-4.9); POTASSIUM 3.7 mmol/L (3.5-5.1); TOTAL BILIRUBIN 0.4 mg/dL (0.0-1.0); TOTAL PROTEIN, SERUM 6.4 g/dL (6.4-8.2)
[2024-04-05] MEDS: MAG SULF 2000 MG/WATER PREMIX 50 ML IV PRN (10:40)
[2024-04-05] MEDS: LORazepam 2 MG/ML VIAL IVP PRN (19:15)
[2024-04-06] VITALS (18 sets, daily range): BP systolic 96–146; BP diastolic 48–89; PULSE 72–103; RESP 16–20; TEMP 97–98.1; O2SAT 91–98
[2024-04-06 06:46] LABS: BASOPHILS % (AUTO) 0.3 % (0.0-2.0); EOSINOPHILS # (AUTO) 0.1 K/uL (0-0.4); HEMATOCRIT 36.8 % (36-52); HEMOGLOBIN 11.7 g/dL (12.0-18.0); LYMPHOCYTES # (AUTO) 0.8 K/uL (2.0-11.5); LYMPHOCYTES % (AUTO) 8.3 % (20.5-51.1); MEAN CORPUSCULAR HEMOGLOBIN 24 pg (27-31); MEAN CORPUSCULAR HGB CONC 32 g/dL (33-37); MEAN CORPUSCULAR VOLUME 75.6 fL (80-94); MONOCYTES # (AUTO) 0.7 K/uL (0.8-1.0); MONOCYTES % (AUTO) 7.6 % (1.7-9.3); NEUTROPHILS # (AUTO) 7.9 K/uL (1.8-7.7); NEUTROPHILS % (AUTO) 82.8 % (42.2-75.2); PLATELET COUNT (AUTO) 142 K/uL (140-450); RED BLOOD CELL COUNT(AUTO) 4.86 MIL/uL (4.20-6.10); RED CELL DISTRIBUTION WIDTH 18.7 % (11.6-13.7); WHITE BLOOD COUNT (AUTO) 9.5 K/uL (4.8-10.8)
[2024-04-06 07:19] LABS: ALBUMIN 2.3 g/dL (3.4-5.0); ANION GAP 11.1 (8-16); CALCIUM 8.3 mg/dL (8.5-10.1); CARBON DIOXIDE 33.8 mmol/L (21-32); CREATININE 0.6 mg/dL (0.6-1.3); MAGNESIUM 1.9 mg/dL (1.8-2.4); POTASSIUM 3.9 mmol/L (3.5-5.1); TOTAL BILIRUBIN 0.4 mg/dL (0.0-1.0); TOTAL PROTEIN, SERUM 6.4 g/dL (6.4-8.2)
[2024-04-06] MEDS: VANCOMYCIN 1,000 MG in DEXTROSE 5% 250 ML IV SCH (13:07)
[2024-04-06] MEDS ORDERED: TOBRAMYCIN PER PHARMACY MC PRN (19:10)
[2024-04-06] MEDS: TOBRAMYCIN 80 MG/2 ML VIAL ONE (21:11)
[2024-04-06] MEDS ORDERED: TOBRAMYCIN 80 MG/2 ML VIAL ONE (21:14)
[2024-04-06] MEDS: NACL 0.9% IV ONE (21:23)
[2024-04-06] MEDS: TOBRAMYCIN IV ONE (21:23)
[2024-04-07] VITALS (14 sets, daily range): BP systolic 122–157; BP diastolic 66–94; PULSE 74–101; RESP 16–18; TEMP 96.8–97.9; O2SAT 87–99
[2024-04-07 08:41] LABS: MEAN CORPUSCULAR HEMOGLOBIN 24 pg (27-31)
[2024-04-07 08:46] LABS: HEMATOCRIT 38.5 % (36-52); MEAN CORPUSCULAR HGB CONC 31 g/dL (33-37); MEAN CORPUSCULAR VOLUME 75.7 fL (80-94); PLATELET COUNT (AUTO) 171 K/uL (140-450); RED BLOOD CELL COUNT(AUTO) 5.08 MIL/uL (4.20-6.10); RED CELL DISTRIBUTION WIDTH 18.7 % (11.6-13.7); WHITE BLOOD COUNT (AUTO) 19.9 K/uL (4.8-10.8)
[2024-04-07 09:54] LABS: LYMPHOCYTES % (MANUAL) 7 % (20-46); MONOCYTES % (MANUAL) 5 % (5-12)
[2024-04-07 09:55] LABS: ANISOCYTOSIS 2+; BASOPHILS % (MANUAL) 0 % (0-2); BLASTS, MANUAL % 0 % (0-0); EOSINOPHILS % (MANUAL) 0 % (0-4); METAMYELOCYTES % 0 % (0-0); MYELOCYTES % 0 % (0-0); OTHER CELLS,MANUAL % 0 (0-0); PLASMA CELLS 0; PLATELET ESTIMATE ADEQUATE; PROMYELOCYTES % 0 % (0-0); SMUDGE CELLS 0
[2024-04-07 10:10] LABS: ALBUMIN 2.3 g/dL (3.4-5.0); ANION GAP 8.3 (8-16); CALCIUM 8.5 mg/dL (8.5-10.1); CARBON DIOXIDE 36.9 mmol/L (21-32); CREATININE 0.5 mg/dL (0.6-1.3); MAGNESIUM 1.7 mg/dL (1.8-2.4); PHOSPHORUS 3.4 mg/dL (2.5-4.9); POTASSIUM 4.2 mmol/L (3.5-5.1); TOTAL BILIRUBIN 0.6 mg/dL (0.0-1.0); TOTAL PROTEIN, SERUM 6.7 g/dL (6.4-8.2)
[2024-04-08] VITALS (14 sets, daily range): BP systolic 114–157; BP diastolic 69–101; PULSE 75–107; RESP 16–26; TEMP 97–97.7; O2SAT 94–99
[2024-04-08 06:31] LABS: BASOPHILS % (AUTO) 0.4 % (0.0-2.0); EOSINOPHILS # (AUTO) 0.4 K/uL (0-0.4); EOSINOPHILS % (AUTO) 3.3 % (0.0-4.0); HEMATOCRIT 38.1 % (36-52); HEMOGLOBIN 12.1 g/dL (12.0-18.0); LYMPHOCYTES # (AUTO) 1.2 K/uL (2.0-11.5); LYMPHOCYTES % (AUTO) 11.6 % (20.5-51.1); MEAN CORPUSCULAR HEMOGLOBIN 24 pg (27-31); MEAN CORPUSCULAR HGB CONC 32 g/dL (33-37); MEAN CORPUSCULAR VOLUME 75.5 fL (80-94); MONOCYTES # (AUTO) 0.8 K/uL (0.8-1.0); MONOCYTES % (AUTO) 7.2 % (1.7-9.3); NEUTROPHILS # (AUTO) 8.4 K/uL (1.8-7.7); NEUTROPHILS % (AUTO) 77.5 % (42.2-75.2); PLATELET COUNT (AUTO) 177 K/uL (140-450); RED BLOOD CELL COUNT(AUTO) 5.05 MIL/uL (4.20-6.10); RED CELL DISTRIBUTION WIDTH 19.2 % (11.6-13.7); WHITE BLOOD COUNT (AUTO) 10.8 K/uL (4.8-10.8)
[2024-04-08 06:32] LABS: ALBUMIN 2.4 g/dL (3.4-5.0); ANION GAP 6.4 (8-16); CALCIUM 9.2 mg/dL (8.5-10.1); CARBON DIOXIDE 37.9 mmol/L (21-32); CREATININE 0.5 mg/dL (0.6-1.3); PHOSPHORUS 4.1 mg/dL (2.5-4.9); POTASSIUM 4.3 mmol/L (3.5-5.1); TOTAL BILIRUBIN 0.4 mg/dL (0.0-1.0); TOTAL PROTEIN, SERUM 7.2 g/dL (6.4-8.2)
[2024-04-08] MEDS: TOBRAMYCIN IV SCH (09:19)
[2024-04-08] MEDS: NACL 0.9% IV SCH (09:19)
[2024-04-08] MEDS: ACETYLCYSTEINE 20% (200 MG/ML) 200 MG/ML VIAL INH SCH (21:00)
[2024-04-09] VITALS (15 sets, daily range): BP systolic 117–144; BP diastolic 65–84; PULSE 67–122; RESP 16–21; TEMP 97.1–98.9; O2SAT 93–97
[2024-04-09 06:43] LABS: BASOPHILS % (AUTO) 0.2 % (0.0-2.0); EOSINOPHILS # (AUTO) 0.4 K/uL (0-0.4); EOSINOPHILS % (AUTO) 2.8 % (0.0-4.0); HEMATOCRIT 38.6 % (36-52); HEMOGLOBIN 12.2 g/dL (12.0-18.0); LYMPHOCYTES # (AUTO) 1.1 K/uL (2.0-11.5); LYMPHOCYTES % (AUTO) 8.4 % (20.5-51.1); MEAN CORPUSCULAR HEMOGLOBIN 24 pg (27-31); MEAN CORPUSCULAR HGB CONC 32 g/dL (33-37); MEAN CORPUSCULAR VOLUME 74.9 fL (80-94); MONOCYTES # (AUTO) 0.7 K/uL (0.8-1.0); MONOCYTES % (AUTO) 5.7 % (1.7-9.3); NEUTROPHILS # (AUTO) 10.5 K/uL (1.8-7.7); NEUTROPHILS % (AUTO) 82.9 % (42.2-75.2); PLATELET COUNT (AUTO) 224 K/uL (140-450); RED BLOOD CELL COUNT(AUTO) 5.16 MIL/uL (4.20-6.10); RED CELL DISTRIBUTION WIDTH 18.6 % (11.6-13.7); WHITE BLOOD COUNT (AUTO) 12.7 K/uL (4.8-10.8)
[2024-04-09 08:29] LABS: ANION GAP 10.2 (8-16); CALCIUM 9.4 mg/dL (8.5-10.1); CARBON DIOXIDE 34.4 mmol/L (21-32); CREATININE 0.6 mg/dL (0.6-1.3); POTASSIUM 4.6 mmol/L (3.5-5.1)
[2024-04-09 08:31] LABS: ALBUMIN 2.5 g/dL (3.4-5.0); MAGNESIUM 2.1 mg/dL (1.8-2.4); PHOSPHORUS 5.1 mg/dL (2.5-4.9); TOTAL BILIRUBIN 0.4 mg/dL (0.0-1.0); TOTAL PROTEIN, SERUM 7.8 g/dL (6.4-8.2)
[2024-04-09] MEDS ORDERED: ACETAMINOPHEN 650 MG SUPP RC PRN (11:15)
[2024-04-10] VITALS (13 sets, daily range): BP systolic 118–138; BP diastolic 65–79; PULSE 99–128; RESP 16–22; TEMP 97.1–98.9; O2SAT 93–99
[2024-04-10 06:54] LABS: BASOPHILS # (AUTO) 0.1 K/uL (0.00-0.22); BASOPHILS % (AUTO) 0.8 % (0.0-2.0); EOSINOPHILS # (AUTO) 0.3 K/uL (0-0.4); EOSINOPHILS % (AUTO) 1.9 % (0.0-4.0); HEMATOCRIT 39.3 % (36-52); HEMOGLOBIN 12.2 g/dL (12.0-18.0); LYMPHOCYTES # (AUTO) 1.5 K/uL (2.0-11.5); LYMPHOCYTES % (AUTO) 9.5 % (20.5-51.1); MEAN CORPUSCULAR HEMOGLOBIN 24 pg (27-31); MEAN CORPUSCULAR HGB CONC 31 g/dL (33-37); MEAN CORPUSCULAR VOLUME 75.5 fL (80-94); MONOCYTES % (AUTO) 6.3 % (1.7-9.3); NEUTROPHILS # (AUTO) 13.1 K/uL (1.8-7.7); NEUTROPHILS % (AUTO) 81.5 % (42.2-75.2); PLATELET COUNT (AUTO) 223 K/uL (140-450); RED BLOOD CELL COUNT(AUTO) 5.21 MIL/uL (4.20-6.10); RED CELL DISTRIBUTION WIDTH 19.2 % (11.6-13.7); WHITE BLOOD COUNT (AUTO) 16.1 K/uL (4.8-10.8)
[2024-04-10 07:57] LABS: ALBUMIN 2.5 g/dL (3.4-5.0); ANION GAP 7.2 (8-16); CALCIUM 9.1 mg/dL (8.5-10.1); CARBON DIOXIDE 35.9 mmol/L (21-32); CREATININE 0.6 mg/dL (0.6-1.3); MAGNESIUM 2.1 mg/dL (1.8-2.4); POTASSIUM 4.1 mmol/L (3.5-5.1); TOTAL BILIRUBIN 0.4 mg/dL (0.0-1.0); TOTAL PROTEIN, SERUM 7.5 g/dL (6.4-8.2)
[2024-04-10] MEDS: MEROPENEM 1,000 MG in NACL 0.9% 50 ML IV SCH (12:24)
[2024-04-10] MEDS ORDERED: LIDOCAINE MPF 1% 10 MG/ML VIAL INJ SCH (14:35)
[2024-04-10] MEDS: ACETYLCYSTEINE 20% (200 MG/ML) 200 MG/ML VIAL INH SCH (19:43)
[2024-04-11] VITALS (13 sets, daily range): BP systolic 111–149; BP diastolic 62–90; PULSE 102–120; RESP 16–20; TEMP 97.4–98.3; O2SAT 95–98
[2024-04-11] MEDS: LIDOCAINE MPF 1% 5 ML ONE (07:29)
[2024-04-11 09:11] LABS: HEMATOCRIT 39.2 % (36-52); HEMOGLOBIN 12.3 g/dL (12.0-18.0); MEAN CORPUSCULAR HEMOGLOBIN 24 pg (27-31); MEAN CORPUSCULAR HGB CONC 32 g/dL (33-37); PLATELET COUNT (AUTO) 221 K/uL (140-450); RED BLOOD CELL COUNT(AUTO) 5.23 MIL/uL (4.20-6.10); RED CELL DISTRIBUTION WIDTH 19.3 % (11.6-13.7); WHITE BLOOD COUNT (AUTO) 16.8 K/uL (4.8-10.8)
[2024-04-11 09:33] LABS: ALBUMIN 2.6 g/dL (3.4-5.0); ANION GAP 10.3 (8-16); CALCIUM 9.2 mg/dL (8.5-10.1); CARBON DIOXIDE 33.8 mmol/L (21-32); CREATININE 0.6 mg/dL (0.6-1.3); MAGNESIUM 2.2 mg/dL (1.8-2.4); POTASSIUM 4.1 mmol/L (3.5-5.1); TOTAL BILIRUBIN 0.5 mg/dL (0.0-1.0); TOTAL PROTEIN, SERUM 7.7 g/dL (6.4-8.2)
[2024-04-11 09:54] LABS: BASOPHILS % (MANUAL) 0 % (0-2); BLASTS, MANUAL % 0 % (0-0); EOSINOPHILS % (MANUAL) 0 % (0-4); LYMPHOCYTES % (MANUAL) 8 % (20-46); METAMYELOCYTES % 0 % (0-0); MONOCYTES % (MANUAL) 6 % (5-12); MYELOCYTES % 0 % (0-0); OTHER CELLS,MANUAL % 0 (0-0); PLASMA CELLS 0; PROMYELOCYTES % 0 % (0-0); SMUDGE CELLS 0
[2024-04-11 09:55] LABS: ANISOCYTOSIS 2+; OVALOCYTES 1+; PLATELET ESTIMATE ADEQUATE; SCHISTOCYTES 1+; TEAR DROP CELLS 1+
[2024-04-12] VITALS (15 sets, daily range): BP systolic 116–146; BP diastolic 63–85; PULSE 85–116; RESP 16–20; TEMP 97.8–99; O2SAT 94–99
[2024-04-12] MEDS: ACETYLCYSTEINE 20% (200 MG/ML) 200 MG/ML VIAL ONE (20:05)
[2024-04-13] VITALS (12 sets, daily range): BP systolic 112–145; BP diastolic 61–89; PULSE 93–111; RESP 16–25; TEMP 97.1–98.6; O2SAT 94–100
[2024-04-13 07:28] LABS: BASOPHILS % (AUTO) 0.3 % (0.0-2.0); EOSINOPHILS # (AUTO) 0.4 K/uL (0-0.4); EOSINOPHILS % (AUTO) 2.4 % (0.0-4.0); HEMATOCRIT 39.1 % (36-52); HEMOGLOBIN 12.4 g/dL (12.0-18.0); LYMPHOCYTES % (AUTO) 6.4 % (20.5-51.1); MEAN CORPUSCULAR HEMOGLOBIN 24 pg (27-31); MEAN CORPUSCULAR HGB CONC 32 g/dL (33-37); MEAN CORPUSCULAR VOLUME 75.3 fL (80-94); MONOCYTES # (AUTO) 1.3 K/uL (0.8-1.0); MONOCYTES % (AUTO) 7.9 % (1.7-9.3); NEUTROPHILS # (AUTO) 13.4 K/uL (1.8-7.7); PLATELET COUNT (AUTO) 189 K/uL (140-450); RED CELL DISTRIBUTION WIDTH 19.4 % (11.6-13.7); WHITE BLOOD COUNT (AUTO) 16.2 K/uL (4.8-10.8)
[2024-04-13 07:54] LABS: ALBUMIN 2.9 g/dL (3.4-5.0); ANION GAP 11.6 (8-16); CARBON DIOXIDE 33.2 mmol/L (21-32); CREATININE 0.5 mg/dL (0.6-1.3); POTASSIUM 3.8 mmol/L (3.5-5.1); TOTAL BILIRUBIN 0.7 mg/dL (0.0-1.0)
[2024-04-13] MEDS: TOBRAMYCIN IV SCH (09:43)
[2024-04-13] MEDS: DEXTROSE 5% IV SCH (09:43)
== END 2024-04-13 19:01 | DRG 870 ==
LOC: MED 10:03 → MIC 13:09 → MTU 04-04 14:53
PROVIDERS: ADMIT Student in an Organized Health Care Education/Training Program; ATTEND Student in an Organized Health Care Education/Training Program
PROC: 5A1955Z Respiratory Ventilation, Greater than 96 Consecutive Hours (ICD-10-PCS; principal; 2024-04-03)
PROC: 0BJ08ZZ Inspection of Tracheobronchial Tree, Via Natural or Artificial Opening Endoscopic (ICD-10-PCS; 2024-04-11)
DX: A41.51 Sepsis due to Escherichia coli [E. coli] (principal); G82.50 Quadriplegia, unspecified; R65.21 Severe sepsis with septic shock; J96.20 Acute and chronic respiratory failure, unspecified whether with hypoxia or hypercapnia; J69.0 Pneumonitis due to inhalation of food and vomit; E43 Unspecified severe protein-calorie malnutrition; G93.1 Anoxic brain damage, not elsewhere classified; Z68.41 Body mass index [BMI] 40.0-44.9, adult; J98.11 Atelectasis; N39.0 Urinary tract infection, site not specified; Z16.12 Extended spectrum beta lactamase (ESBL) resistance; N17.9 Acute kidney failure, unspecified; Z20.822 Contact with and (suspected) exposure to COVID-19; B96.89 Other specified bacterial agents as the cause of diseases classified elsewhere; G31.9 Degenerative disease of nervous system, unspecified; E03.9 Hypothyroidism, unspecified; I51.7 Cardiomegaly; E86.0 Dehydration; E66.01 Morbid (severe) obesity due to excess calories; E87.6 Hypokalemia; E83.39 Other disorders of phosphorus metabolism; K80.20 Calculus of gallbladder without cholecystitis without obstruction; K43.5 Parastomal hernia without obstruction or gangrene; N20.0 Calculus of kidney; Z95.0 Presence of cardiac pacemaker; Z93.3 Colostomy status; Z87.442 Personal history of urinary calculi; Z86.74 Personal history of sudden cardiac arrest; Z74.01 Bed confinement status
CPT/HCPCS: 36415; 36600; 70450; 71045; 76604; 76770; 80048; 80053; 80076; 80200; 80202; 81001; 82550; 82803; 82948; 83605; 83735; 83880; 84100; 84484; 85025; 85610; 85730; 87040; 87070; 87081; 87086; 87186; 87205; 89220; 93005; 94003; 94640; 96361; 96365; 96368; 97163-GP; 99291; J1644; J1815; J1940; J2003; J2060; J2185; J2470; J2543; J3260; J3370; J3475; J3490; J7060; J7608; Q0092